=== PATIENT | female | born 1940 | race Caucasian/White ===

== ENCOUNTER 2017-06-04 17:21 | Inpatient (IN) | payer OTHER ==
[~2017-06-04] VITALS: Ht 152.4 cm; Wt 62.7 kg
[~2017-06-04 17:21] MED LIST: AMBIEN 10MG10 MG PO; BENTYL10 MG PO; DEXILANT30 MG PO; DIAZEPAM5 MG PO; LISINOPRIL10 MG PO; SEROQUEL 25MG25 MG PO; VENLAFAXINE HY150 MG PO; ZOFRAN ODT4 MG PO
[2017-06-04 18:16] LABS: ABSOLUTE BASOPHIL COUNT 0 /CUMM (0.0-0.2); ABSOLUTE EOSINOPHIL COUNT 0.1 /CUMM (0.0-0.7); ABSOLUTE GRANULOCYTE CT 7.1 /CUMM (1.4-6.5); ABSOLUTE MONOCYTE COUNT 0.9 /CUMM (0.10-0.60); BASOPHIL % 0.3 % (0.0-2.0); EOSINOPHIL % 0.9 % (0-5); HEMATOCRIT 43.9 % (37-47); MEAN CORPUSCULAR HGB 28.9 PG (27.0-31.0); MEAN CORPUSCULAR HGB CONC 32.8 G/DL (33.0-37.0); MEAN CORPUSCULAR VOLUME 88.1 FL (81.0-99.0); MEAN PLATELET VOLUME 8.4 FL (7.4-10.4); PLATELET COUNT 241 /CUMM (130-400); RBC DISTRIBUTION WIDTH 14.1 % (11.5-14.5); RED BLOOD CELL CT 4.98 /CUMM (4.20-5.40); WHITE BLOOD CELL COUNT 11.3 /CUMM (4.8-10.8)
--- NOTE | 2017-06-04 20:00 | CT SCAN REPORT ---
EXAMINATION: CT ABDOMEN AND PELVIS WITHOUT CONTRAST CLINICAL INFORMATION: Abdominal distention, vomiting. COMPARISON: None TECHNIQUE: Multidetector volumetric imaging was performed from the superior aspect of the liver through the pubic symphysis. Sagittal and coronal reformatted images were obtained on the technologist's workstation. DLP: 304 mGy-cm FINDINGS: LUNG BASES: There is bibasilar atelectasis. There are pacer electrodes in right atrium and right ventricle. LIVER, GALLBLADDER, AND BILIARY TREE: The liver is normal in size, shape, and attenuation. No focal hepatic lesion or biliary ductal dilatation is present. The gallbladder is unremarkable with no evidence of radiopaque gallstones, gallbladder wall thickening, or obvious pericholecystic inflammatory changes. PANCREAS: Unremarkable. SPLEEN: Unremarkable. ADRENAL GLANDS: Unremarkable. KIDNEYS AND URETERS: The kidneys are normal in size, shape, and attenuation. No hydronephrosis, hydroureter, or calculi seen. No perinephric stranding. BLADDER: Unremarkable. GASTROINTESTINAL TRACT: Is diffuse sigmoid colon diverticulosis without diverticulitis. Scattered groundglass seen in the rest of the colon without distention. The small bowel loops are normal caliber. Appendix is not seen with certainty. ABDOMINAL WALL: No significant hernia is appreciated. LYMPH NODES: Normal. VASCULAR: Unremarkable. PELVIC VISCERA: No free fluid of free air seen. No abnormal pelvic lymph nodes seen. The uterus is anteverted with the fundus slightly bulky. OSSEOUS STRUCTURES: Mild degenerative disc changes L5-S1 disc level with vacuum disc phenomena. Otherwise unremarkable lumbosacral spine and pelvis. IMPRESSION: Diffuse sigmoid and scattered rest of the colon diverticulosis but no visible diverticulitis. No obstruction. No bowel distention, free air or free fluid.
--- NOTE | 2017-06-04 20:04 | ED GI/GU/ABDOMINAL COMPLAINT ---
History of Present Illness General Chief Complaint: General Adult Stated Complaint: "STOMACH BUG FOR A WEEK, NOT GETTING BETTER" Source: patient, family, old records Exam Limitations: no limitations Vital Signs & Intake/Output Vital Signs & Intake/Output Vital Signs Date Time Temp Pulse Resp B/P B/P Pulse O2 O2 Flow FiO2 Mean Ox Delivery Rate 06/04 2313 97.5 74 18 117/58 98 06/04 1742 96.0 72 18 102/70 99 Room Air ED Intake and Output 06/05 0000 06/04 1200 Intake Total 0 Output Total Balance 0 Intake, Oral 0 Patient 120 lb Weight Allergies Coded Allergies: No Known Allergies (07/03/15) Reconcile Medications Dexlansoprazole (Dexilant) 30 MG ECC 1 CAP PO DAILY GI (Reported) Diazepam 5 MG TAB 1 TAB PO BID PRN HEADACHE (Reported) Dicyclomine Hydrochloride (Bentyl) 10 MG CAP 1 TAB PO Q8P PRN SPASMS Lisinopril 10 MG TAB 1 TAB PO DAILY HEART (Reported) Ondansetron (Zofran Odt) 4 MG ODT 1 TAB PO Q6P PRN NAUSEA Quetiapine Fumarate (Seroquel) 25 MG TAB 1 TAB PO QPM SLEEP (Reported) VENLAFAXINE HCL (Venlafaxine HCl ER) 150 MG CER 1 CAP PO DAILY MENTAL HEALTH (Reported) Zolpidem Tartrate (Ambien 10MG) 10 MG TAB 1 TAB PO QPM SLEEP (Reported) Triage Note: PT STATES SHE HAS HAD THE STOMACH BUG V/D FOR A WEEK NOW. PT REPORTS BLOATING IN HER ABD. PT STATES UNABLE TO EAT BUT IS SIPPING ON WATER. PT STATES SHE IS GETTING WORSE INSTEAD OF BETTER. PT STATES THIS HAS BEEN GOING ON FOR THE PAST WEEK. Triage Nurses Notes Reviewed? yes LMP (ages 10-50): post menopausal ? n Is pt currently ? No Onset: Last week Duration: day(s):, changing over time, continues in ED Timing: recent history Quality/Severity: aching, fullness, moderate, vomiting Location: generalized abdomen Radiation: no radiation Activities at Onset: rest Prior Abdominal Problems: none Past Sexual History: Unobtainable at this time Modifying Factors: Worsens With: eating. Associated Symptoms: abdominal pain, diarrhea, fever/chills, loss of appetite, nausea/vomiting HPI: Wanted prior to admission patient complains of nausea vomiting frequent loose watery stools abdominal distention with anorexia dysuria and increasing weakness. She denies fever chills chest pain cough shortness of breath headache rash bleeding Past History Travel History Traveled to [place] past 21 day No Medical History Any Pertinent Medical History? see below for history Neurological: NONE EENT: ACALSIA Cardiovascular: CAD, hypertension Respiratory: NONE Gastrointestinal: H PYLORI STENOSIS Hepatic: NONE Renal: NONE Musculoskeletal: NONE Psychiatric: NONE Endocrine: NONE Surgical History Surgical History: CABG, , AICD pacemaker Psychosocial History What is your primary language Ma[place] Tobacco Use: Quit >30 days ago ETOH Use: denies use Illicit Drug Use: denies illicit drug use Family History Hx Contributory? No Review of Systems Review of Systems Constitutional: Reports: see HPI, malaise, weakness. EENTM: Reports: no symptoms. Respiratory: Reports: no symptoms. Cardiovascular: Reports: no symptoms. GI: Reports: see HPI, abdominal pain, bloating, diarrhea, distention, vomiting. Genitourinary: Reports: see HPI, dysuria. Musculoskeletal: Reports: no symptoms. Skin: Reports: no symptoms. Neurological/Psychological: Reports: no symptoms. Hematologic/Endocrine: Reports: no symptoms. Immunologic/Allergic: Reports: no symptoms. All Other Systems: Reviewed and Negative Physical Exam Physical Exam General Appearance: well developed/nourished, alert, awake, anxious, moderate distress Head: atraumatic, normal appearance Eyes: Bilateral: normal appearance, EOMI, normal inspection. Ears, Nose, Throat, Mouth: hearing grossly normal, dry mucous membranes Neck: normal inspection, supple, full range of motion, normal alignment Respiratory: normal breath sounds, chest non-tender, no respiratory distress, quiet respiration, lungs clear Cardiovascular: regular rate/rhythm, normal peripheral pulses, norml femoral pulses equa Peripheral Pulses: 4+ carotid (R), 4+ carotid (L) Gastrointestinal: soft, non-tender, abnormal bowel sounds, distention Back: normal inspection, normal range of motion Extremities: normal range of motion, no ligament instability Neurologic/Psych: no motor/sensory deficits, awake, alert, oriented x 3, normal gait, normal mood/affect, 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 Yes Sepsis Present: No Sepsis Focused Exam Completed? No Progress Differential Diagnosis: biliary colic, bowel obstruction, diverticulitis, gastritis, pancreatitis, PUD/GERD Plan of Care: Orders Procedure Date/time Status Clear Liquid Diet 06/05 B Active CBC WITHOUT DIFFERENTIAL 06/05 06 Active BASIC ELECTROLYTES PLUS BUN&CR 06/05 0600 Active TROPONIN LEVEL 06/05 0500 Active EKG 06/05 0500 Active C.DIFFICILE 06/04 2339 Active SWALLOW EVALUATION 06/04 225 Active Saline Lock 06/04 225 Active Pathway - chart 06/04 225 Active House Staff 06/04 225 Active Code Status 06/04 2252 Active Patient Data 06/04 2129 Active POTASSIUM 06/04 2100 Complete TROPONIN LEVEL 06/04 2042 Complete MAGNESIUM 06/04 2042 Complete LACTIC ACID 06/04 204 Complete EKG 06/04 204 Active Add-on Test (ER Only) 06/04 2020 Active Add-on Test (ER Only) 06/04 2002 Active OXYGEN SETUP (GEN) 06/04 1934 Active Saline Lock 06/04 193 Active Admit to inpatient 06/04 1935 Active Vital Signs 06/04 1935 Active Activity/Ambulation 06/04 193 Active Code Status 06/04 1935 Complete Intake & Output 06/04 1922 Active TSH REFLEX 06/04 1751 Complete RAPID VIRAL INFLUENZA A 06/04 1742 Complete CULTURE,URINE 06/04 1742 Active URINALYSIS 06/04 1742 Complete TROPONIN LEVEL 06/04 1742 Complete LIPASE 06/04 1742 Complete LACTIC ACID 06/04 1742 Complete COMPREHENSIVE METABOLIC PANEL 06/04 1742 Complete CBC WITHOUT DIFFERENTIAL 06/04 1742 Complete AMYLASE 06/04 1742 Complete EKG 06/04 1742 Active Lab Add-on Test 06/04 UNK Active VTE Mechanical Prophylaxis 06/04 UNK Active Vital Signs 06/04 UNK Active Intake & Output 06/04 UNK Active Hemoccult 06/04 UNK Active FingerStick- Glucose 06/04 UNK Complete PHYSICIAN CONSULT 06/04 UNK Active ECHOCARDIOGRAM 06/04 UNK Active Current Medications Sig/Richa Start time Last Medication Dose Stop Time Status Admin Quetiapine Fumarate 25 MG QPM 06/05 2199 UNVr (Seroquel) Zolpidem Tartrate 10 MG QPM 06/05 220 UNVr (Ambien) Ceftriaxone Sodium 1,000 MG 06/05 AC (Rocephin) Venlafaxine HCl 150 MG DAILY 06/05 1000 UNVr (Effexor) Omeprazole 40 MG DAILY AC 06/05 0700 UNVr (Prilosec) Heparin Sodium 5,000 UNIT Q8 06/05 06 UNVr (Porcine) Aspirin 300 MG ONCE ONE 06/05 011 UNVr (Aspirin) 06/05 011 Insulin Human Regular 0 Q6 06/04 2359 CAN (NovoLIN R) Acetaminophen 650 MG Q6 PRN 06/04 2300 AC (Tylenol) Morphine Sulfate 2 MG Q8P PRN 06/04 2300 AC (Morphine) Sodium Chloride 1,000 ML ONCE ONE 06/04 2300 AC 06/04 (Normal Saline 0.9%) 06/05 1859 2354 Laboratory Tests 06/04/17 2100: Lactic Acid 0.9, Magnesium 2.0, Troponin I 0.13 *H 06/04/17 1815: Urine Color YEL, Urine Clarity HAZY H, Urine pH 6.0, Ur Specific [place] 1.020, Urine Protein 30 H, Urine Ketones NEG, Urine Nitrite NEG, Urine Bilirubin NEG@ ICTO, Urine Urobilinogen 0.2, Ur Leukocyte Esterase MOD H, Ur Microscopic SEDIMENT EXAMINED, Urine RBC 1-3, Urine WBC 10-15 H, Ur Epithelial Cells FEW, Urine Bacteria MANY H, Hyaline Casts 5-10 H, Urine Mucus FEW, Urine Hemoglobin SMALL H, Urine Glucose NEG 06/04/17 1751: Anion Gap 14, Estimated GFR 34 L, BUN/Creatinine Ratio 12.7, Glucose 137 H, Lactic Acid 2.1, Calcium 9.7, Total Bilirubin 0.5, AST 39 H, ALT 29, Alkaline Phosphatase 101, Troponin I 0.11 *H, Total Protein 7.6, Albumin 4.4, Globulin 3.2, Albumin/Globulin Ratio 1.4, Amylase 90, Lipase 299, TSH &T3 &Free T4 Intrp 1.010, CBC w Diff NO MAN DIFF REQ, RBC 4.98, MCV 88.1, MCH 28.9, MCHC 32.8 L, RDW 14.1, MPV 8.4, Gran % 63.0, Lymphocytes % 27.7, Monocytes % 8.1, Eosinophils % 0.9, Basophils % 0.3, Absolute Granulocytes 7.1 H, Absolute Monocytes 0.9 H, Absolute Eosinophils 0.1, Absolute Basophils 0 Microbiology 06/04 2339 STOOL: Clostridium difficile Toxin A & B - ORD 06/04 1812 NASOPHARYN: Influenza Virus A & B Rapid Smear - COMP 06/04 1742 URINE ROUT: Urine Culture - RECD Diagnostic Imaging: Viewed by Me: CT Scan. Discussed w/RAD: CT Scan. Radiology Impression: Diffuse sigmoid and scattered rest of the colon diverticulosis but no visible diverticulitis. No obstruction. No bowel distention, free air or free fluid. Initial ED EKG: pacemaker rhythm, no ST T wave changes Prior EKG: changed Rhythm Strip: normal sinus rhythm Comments: Sepsis bolus not given due to possible development of CHF. Patient has cardiomyopathy with poor ejection fraction and positive troponin 2nd lactic acid normal. Departure Departure Disposition: STILL A PATIENT Condition: Fair Clinical Impression Primary Impression: Hypokalemia, gastrointestinal losses Secondary Impressions: Dehydration syndrome, Elevated troponin, Lactic acidosis, Nausea, vomiting, and diarrhea, UTI (urinary tract infection) Referrals: Sal Holden MD (PCP/Family) Departure Forms: Customer Survey General Discharge Information Admission Note Spoke With: Anjel Calix MD Documentation of Exam: Documentation of any treatments & extenuating circumstances including Concerns Regarding Discharge (functional status, medication knowledge or non-compliance, living conditions, etc.) that warrant an admission rather than observation: Gentle IV hydration electrolyte replacement serial lab exam IV antibiotics advance diet medication adjustment cardiac monitoring continuing care discharge planning. Critical Care Note Critical Care Note Critical Care Time: 30-74 min (40)
--- NOTE | 2017-06-04 21:31 | History & Physical ---
Mor GRESHAM,[facility] 06/04/172130: General Information and HPI MD Statement: I have seen and personally examined SILVANA CLINTON and documented this H&P. The patient is a 76 year old F who presented with a patient stated chief complaint of [vomit and diarrhea x 1 week]. Source of Information: patient History of Present Illness: 76 year old with a pmhx: cad, htn, achlasia s/p botox, cabg, , pacemaker with ?defibrillator presenting for vomiting/dirrhea x 1 week. The patient states that her symptoms of vomiting and diarrhea have been progressively worse during the week. States that her decreased appetite has decreased to just water sips. States that she did not eat anything yesterday. States that she has been feeling bloated. States that the diarrhea is watery and she has both 7 problems per day. States the stools are brown with no blood or mucus. Did serve operated is yellow with no blood. Denies any recent travel or changes in her diet recently which may have caused this. The patient complains of night sweats and hot flashes. States that she was having abdominal pain which she has vomited however this is resolved this time. Of note the patient states that she has been taking Monistat for the past month to help with dysuria. States that the dysuria improved with small cell however has been getting worse the past couple days. The patient denies any headaches, fevers, chills, weight changes, sensations of cold/hot, palpitations, chest pain, vaginal discharge, shortness of breath, weakness, back pain, flank pain, edema, or jaundice. Allergies/Medications Allergies: Coded Allergies: No Known Allergies (07/03/15) Home Med list Dexlansoprazole (Dexilant) 30 MG ECC 1 CAP PO DAILY GI (Reported) Diazepam 5 MG TAB 1 TAB PO BID PRN HEADACHE (Reported) Dicyclomine Hydrochloride (Bentyl) 10 MG CAP 1 TAB PO Q8P PRN SPASMS Lisinopril 10 MG TAB 1 TAB PO DAILY HEART (Reported) Ondansetron (Zofran Odt) 4 MG ODT 1 TAB PO Q6P PRN NAUSEA Quetiapine Fumarate (Seroquel) 25 MG TAB 1 TAB PO QPM SLEEP (Reported) VENLAFAXINE HCL (Venlafaxine HCl ER) 150 MG CER 1 CAP PO DAILY MENTAL HEALTH (Reported) Zolpidem Tartrate (Ambien 10MG) 10 MG TAB 1 TAB PO QPM SLEEP (Reported) Past History Travel History Traveled to [place] past 21 day No Medical History Neurological: NONE EENT: ACALSIA Cardiovascular: CAD, hypertension Respiratory: NONE Gastrointestinal: H PYLORI STENOSIS Hepatic: NONE Renal: NONE Musculoskeletal: NONE Psychiatric: NONE Endocrine: NONE Surgical History Surgical History: CABG, , AICD pacemaker Past Family/Social History Psychosocial History ETOH Use: denies use Illicit Drug Use: denies illicit drug use Sexual History Past Sexual History Unobtainable at this time Review of Systems Review of Systems Constitutional: Reports: see HPI (night sweats, hot flashes), chills. GI: Reports: see HPI, abdominal pain, diarrhea, nausea, vomiting. Genitourinary: Reports: dysuria. Exam & Diagnostic Data Last 24 Hrs of Vital Signs/I&O Vital Signs Date Time Temp Pulse Resp B/P B/P Pulse O2 O2 Flow FiO2 Mean Ox Delivery Rate 06/05 0800 Room Air 06/05 0653 97.6 64 18 118/58 98 Room Air 06/05 0252 97.6 80 18 110/52 97 Room Air 06/05 0202 97.8 80 16 115/98 98 Room Air 06/04 2313 97.5 74 18 117/58 98 06/04 1742 96.0 72 18 102/70 99 Room Air Intake & Output 06/05 1600 06/05 0800 06/05 0000 Intake Total 1324 320 0 Output Total Balance 1324 320 0 Intake, IV 400 200 Intake, Oral 924 120 0 Patient 125 lb 120 lb Weight Weight Reported by Patient Measurement Method Physical Exam General Appearance Alert, Oriented X3, Cooperative, No Acute Distress HEENT no JVD Cardiovascular Regular Rate, Normal S1, Normal S2, No Murmurs Lungs Clear to Auscultation, Normal Air Movement Abdomen Normal Bowel Sounds, Soft, No Tenderness Extremities no cva tenderness Vascular 2+ radial and pedal pulses Last 24 Hrs of Labs/Richie: Laboratory Tests 06/05/17 0530: Troponin I 0.08 06/05/17 0530: Anion Gap 10, Estimated GFR 48 L, BUN/Creatinine Ratio 15.5, CBC w Diff NO MAN DIFF REQ, RBC 3.62 L, MCV 88.0, MCH 28.8, MCHC 32.8 L, RDW 14.3, MPV 8.6, Gran % 60.9, Lymphocytes % 29.6, Monocytes % 7.9, Eosinophils % 1.3, Basophils % 0.3, Absolute Granulocytes 4.5, Absolute Lymphocytes 2.2, Absolute Monocytes 0.6, Absolute Eosinophils 0.1, Absolute Basophils 0 06/04/17 2100: Lactic Acid 0.9, Magnesium 2.0, Troponin I 0.13 *H 06/04/17 1815: Urine Color YEL, Urine Clarity HAZY H, Urine pH 6.0, Ur Specific [place] 1.020, Urine Protein 30 H, Urine Ketones NEG, Urine Nitrite NEG, Urine Bilirubin NEG@ ICTO, Urine Urobilinogen 0.2, Ur Leukocyte Esterase MOD H, Ur Microscopic SEDIMENT EXAMINED, Urine RBC 1-3, Urine WBC 10-15 H, Ur Epithelial Cells FEW, Urine Bacteria MANY H, Hyaline Casts 5-10 H, Urine Mucus FEW, Urine Hemoglobin SMALL H, Urine Glucose NEG 06/04/17 1751: Anion Gap 14, Estimated GFR 34 L, BUN/Creatinine Ratio 12.7, Glucose 137 H, Lactic Acid 2.1, Calcium 9.7, Total Bilirubin 0.5, AST 39 H, ALT 29, Alkaline Phosphatase 101, Troponin I 0.11 *H, Total Protein 7.6, Albumin 4.4, Globulin 3.2, Albumin/Globulin Ratio 1.4, Amylase 90, Lipase 299, TSH &T3 &Free T4 Intrp 1.010, CBC w Diff NO MAN DIFF REQ, RBC 4.98, MCV 88.1, MCH 28.9, MCHC 32.8 L, RDW 14.1, MPV 8.4, Gran % 63.0, Lymphocytes % 27.7, Monocytes % 8.1, Eosinophils % 0.9, Basophils % 0.3, Absolute Granulocytes 7.1 H, Absolute Monocytes 0.9 H, Absolute Eosinophils 0.1, Absolute Basophils 0 Microbiology 06/04 2338 STOOL: Clostridium difficile Toxin A & B - COLB 06/04 1811 NASOPHARYN: Influenza Virus A & B Rapid Smear - COMP 06/04 1741 URINE ROUT: Urine Culture - RECD Assessment/Plan Assessment: A: 76 year old with a pmhx: cad, htn, achlasia s/p botox, cabg, , pacemaker with ?defibrillator presenting for vomiting/dirrhea x 1 week and continued UTI for the past month. P: #gastroenteritis Most likely viral -cont fluid support -clear liquid diet, advanced as tolerated -f/u c.diff #low K K 2.8 -replete as needed #ANUPAMA Cr 1.5, 1.0 baseline -cont to monitor -cont NS #UTI -cont ceftriaxone -f/u UA, ucx, blood cx #elevated trops - prob demand ischemia trops .11, .13 -Trend troponins and EKG until peak -f/u cardiology consult #mental health -cont zolpidem, quetiapine,venlafaxine #hx of achalasia -GI consult if needed per primary team -f/u swallow eval -obtain achalasia records #gerd -cont omeprazole #DVT prophylaxis, heparin SC #FULL CODE As Ranked By This Provider Problem List: 1. Gastroenteritis 2. Elevated troponin 3. UTI (urinary tract infection) Core Measures/Misc (12/22) Acute Coronary Syndrome ACS Diagnosis: No Congestive Heart Failure Congestive Heart Failure Diagnosis No Cerebrovascular Accident CVA/TIA Diagnosis: No VTE (View Protocol) VTE Risk Factors Acute Medical Illness No Mechanical VTE Prophylaxis d/t Other No VTE Pharm Prophylaxis d/t NA PharmProphylax ordered Sepsis (View protocol) Sepsis Present: No Anjel Calix 06/05/17 0445: Attending MD Review Statement Attending Statement Attending MD Statement: examined this patient, discuss w/resident/PA/DRY TRANSFER MAN, agreed w/resident/PA/DRY TRANSFER MAN, reviewed EMR data (avail), reviewed images, amended to note Attending Assessment/Plan: CC: Vomiting and diarrhea PMH: CAD S/P CABG 15 year back, S/P stent 2017, HTN, achalasia, S/P defibrillator for LBBB Patient came to ER for 1 week duration of vomiting and diarrhea. Patient had been having watery diarrhea approximately 4-5 times per day, nonbloody, associated with abdominal bloating sensation. She had vomiting every time she ate something approximately 4-5 days back, since then patient had not been eating or drinking much, had one American muffin in 3 days. Patient states that she could not even take her daily medications except she has been taking Plavix and Dexilant. Vomiting are clear to yellow in color, nonbilious nonbloody. Patient denies chest pain, burning sensation in chest, recent antibiotic use, sick contacts, eating outside, hospitalization, travel. She endorses and flashes during the nighttime when her diarrhea and vomiting was severe. Currently vomiting is better but diarrhea persists. Patient also endorses urinary burning since last 3-4 weeks, has been using [id number] Monistat for the same. Denies any vaginal discharge, vaginal itching or burning. Patient denies any fever or chills, loss of consciousness, dizziness, palpitations, chest pain or chest tightness, leg swelling. Vitals: Afebrile, pulse in 70s, RR 18, blood pressure 102/70 on arrival improved to 117/58, saturating 99% on room air. On exam: A O 3, cooperative, no acute distress, neck supple, JVD normal, no lymphadenopathy, mucosa dry, no focal neurological deficit, no dependent edema, no obvious skin rashes or inflammation CVS: S1-S2, RRR. RS: Clear to auscultate bilaterally. Abdomen: Soft, NT, ND, bowel sounds present. CT abdomen pelvis without IV contrast: Diffuse sigmoid and scattered rest of the colon diverticulosis but no visible diverticulitis. No obstruction. No bowel distention, free air or free fluid. Assessment and plan 76-year-old female with multiple comorbidities present in in ER for 1 week duration of vomiting and diarrhea, watery, nonbloody, multiple episodes every day, associated with abdominal bloating. Patient denies any recent travel, antibiotic use or hospitalization. She denies any fever or chills but had some night sweats and hot flashes when her diarrhea vomiting was severe. She could not take any oral intake since last 3-4 days and feels very weak and tired with no dizziness lightheadedness or loss of consciousness. On examination she appears dehydrated otherwise complete examination unremarkable. She is found to have hypokalemia with potassium of 2.6, creatinine of 1.5, ( baseline 1.0 done on April 2017), , mild leukocytosis. All goes in favor of dehydration, volume loss, electrolyte loss secondary to vomiting and diarrhea and poor by mouth intake. Her vomiting and diarrhea appears secondary to viral gastroenteritis. CT abdomen and pelvis is unremarkable. Meanwhile she is also found to have elevated troponin to 0.11 which trended up to 0.13. This could be secondary to demand ischemia given her history of extensive CAD in the setting of dehydration. Patient is currently denying any chest pain or chest tightness. She is also complaining of urinary burning and found to leukocyte esterase on UA. + Viral gastroenteritis : Diarrhea and vomiting + Dehydration + Hypokalemia + UTI: Cystitis + Elevated troponin secondary to demand ischemia + History of CAD S/P CABG 15 year back, S/P stent 2016, HTN, achalasia, S/P defibrillator for LBBB - Admit to telemetry - Continuous telemetry monitoring - Serial troponin and ECGs - Replete potassium - Cardiology consult - Continue gentle hydration with normal saline at 50 mL per hour - IV ceftriaxone - Urine culture - Stool C. difficile - Continue her home medications except lisinopril, resume lisinopril once creatinine improved and blood pressure stable - DVT prophylaxis Aleksandra Dewey 06/05/17 0449: Resident Review Statement Resident Statement: examined this patient, discussed with ad operations intern, agreed with ad operations intern, discussed with family Other Findings: Ms Clinton is a 76 year woman who was known to be in her usual state of health until 1 week ago. She is a past medical history of coronary artery disease status post CABG (15 years ago), PCI (February 2017), hypertension, achalasia, pacemaker defibrillator placed in 04/2017 for the treatment of new onset left bundle branch block. She came in with a chief concern of nausea, vomiting and several episodes of diarrhea that started approximately 1 week ago. Review to decreased by mouth intake. No new medications, new food intake, travel. He did not have any upper respiratory infection. She reported occasional night sweats. She reported abdominal discomfort, with no pain but had some dysuria that started approximately a few weeks ago. No fever, chills. She follows up with her special forces specialist for achalasia, who underwent upper endoscopy recently, and received Botox injections as needed. She follows up with cardiology group at [place], for follow-up of her coronary artery disease. At the time of admission, vitals-temperature 97.5, pulse rate 72, respiration 18 , blood pressure 102/70, 99% on room air. On examination, she was comfortable, alert oriented 3. Mucosal membranes appear dry. No lymphadenopathy, no JVP elevation. Heart and lung examination were within normal limits. Abdominal examination was normal, with no tenderness. No CVA tenderness was noted. Pertinent lab findings-W BC 11.3, hemoglobin 14.4, platelets 241. Potassium 2.6 , BUN 19, serum creatinine 1.5 (his baseline 1.0). Lactic acid 2.1 and trended down. Liver chemistries within normal limits. Troponin 0.11, 0.13, 0.08. Urinalysis revealed urine leukocyte esterase moderate, pyuria. CT scan abdomen revealed diffuse diverticulosis, no obstruction. EKG revealed paced rhythm, with nonspecific ST changes secondary to pacemaker. Influenza swab negative. Glucose elevated. Etiology in her case was likely due to gastroenteritis secondary to viral infection. Other infectious etiologies such as urinary tract infection are to be kept in differentials. She had slight elevation in cardiac enzymes likely secondary to demand, but NSTEMI in differentials. Plan: 1. Nausea, vomiting, diarrhea-likely secondary to viral gastroenteritis. Supportive therapy at this time. Continue intravenous fluids at 50 mL an hour. Clear liquid diet at this time. Advance diet as tolerated. Check C. difficile. No recent antibiotic use. 2. Elevated cardiac enzymes-likely type II ME. Trend troponins. Check echocardiogram. Cardiology consult. Aspirin and statin were given in the ED. 3. Abnormal urinalysis-since she has symptoms, could be treated for urinary tract infection with ceftriaxone pending culture results. 4. History of achalasia-obtain records. GI consult. Swallow evaluation. Continue Protonix. 5. Mental health-continue Ambien, Seroquel and Effexor. 6. Hypokalemia-normal bicarbonate. Likely secondary to diarrhea. Replenish aggressively. Housekeeping- 1. DVT prophylaxis-subcutaneous heparin. 2. Consults-cardiology, gastroenterology. 3. GI prophylaxis-Protonix. 4. Medication reconciliation-complete.
[2017-06-05 02:52] VITALS: BP 110/52
--- NOTE | 2017-06-05 04:47 | Admission Certification ---
Admission Certification Certification Statement - As attending physician, I certify that at the time of - admission, based on clinical presentation, severity of - symptoms, need for further diagnostic testing and - therapeutic interventions, and risk of adverse outcomes - without in-hospital treatment, in my clinical assessment, - this patient requires an acute hospital stay for a minimum - of two nights or longer. I have also considered psychsocial - factors such as support system, advanced age, financial - issues, cognitive issues, and failed out-patient treatments, - past re-admission history, safety of patient, and lack of - compliance as applicable. Specific rationale supporting this admission is: Elevated troponin, dehydration, hypokalemia, Viral gastroenteritis
[2017-06-05 06:05] LABS: ABSOLUTE BASOPHIL COUNT 0 /CUMM (0.0-0.2); ABSOLUTE EOSINOPHIL COUNT 0.1 /CUMM (0.0-0.7); ABSOLUTE MONOCYTE COUNT 0.6 /CUMM (0.10-0.60); PLATELET COUNT 168 /CUMM (130-400); RBC DISTRIBUTION WIDTH 14.3 % (11.5-14.5)
[2017-06-05 06:20] LABS: ABSOLUTE GRANULOCYTE CT 4.5 /CUMM (1.4-6.5); ABSOLUTE LYMPH COUNT 2.2 /CUMM (1.2-3.4); BASOPHIL % 0.3 % (0.0-2.0); EOSINOPHIL % 1.3 % (0-5); GRANULOCYTE % 60.9 % (42.2-75.2); MEAN CORPUSCULAR HGB 28.8 PG (27.0-31.0); MEAN CORPUSCULAR HGB CONC 32.8 G/DL (33.0-37.0); MEAN PLATELET VOLUME 8.6 FL (7.4-10.4); WHITE BLOOD CELL COUNT 7.4 /CUMM (4.8-10.8)
[2017-06-05 06:22] LABS: HEMATOCRIT 31.9 % (37-47); RED BLOOD CELL CT 3.62 /CUMM (4.20-5.40)
[2017-06-05 06:53] VITALS: BP 118/58
--- NOTE | 2017-06-05 07:08 | PN- Housestaff ---
Scott GRESHAM,Elen 06/05/17 0708: Subjective Follow-up For: Viral gastroenteritis : Diarrhea and vomiting Dehydration Hypokalemia UTI: Cystitis Elevated troponin secondary to demand ischemia Tele-Events Since Last Visit: SR, 69, 0.08, Subjective: Patient is seen and examined at bedside, she denies any nausea and vomiting, continues to report to mild dysuria which is improving, denies fever, chills, body aches Review of Systems Constitutional: Reports: see HPI. Objective Last 24 Hrs of Vital Signs/I&O Vital Signs Date Time Temp Pulse Resp B/P B/P Pulse O2 O2 Flow FiO2 Mean Ox Delivery Rate 06/05 08 Room Air 06/05 0653 97.6 64 18 118/58 98 Room Air 06/05 0252 97.6 80 18 110/52 97 Room Air 06/05 0202 97.8 80 16 115/98 98 Room Air 06/04 2313 97.5 74 18 117/58 98 06/04 1742 96.0 72 18 102/70 99 Room Air Intake & Output 06/05 1600 06/05 0800 06/05 0000 Intake Total 320 0 Output Total Balance 320 0 Intake, IV 200 Intake, Oral 120 0 Patient 125 lb 120 lb Weight Weight Reported by Patient Measurement Method Physical Exam General Appearance: Alert, Oriented X3, Cooperative, No Acute Distress HEENT: Atraumatic, PERRLA, EOMI, Mucous Membr. moist/pink Cardiovascular: Normal S1, Normal S2, No Murmurs Lungs: Clear to Auscultation Abdomen: Normal Bowel Sounds, Soft, No Tenderness Neurological: Normal Speech, Strength at 5/5 X4 Ext, Normal Tone, Sensation Intact, Cranial Nerves 3-12 NL Extremities: No Clubbing, No Cyanosis, No Edema Assessment/Plan Assessment: 76 year old with a pmhx: cad, htn, achlasia s/p botox, cabg, , pacemaker with ?defibrillator presenting for vomiting/dirrhea x 1 week and continued UTI for the past month. Most likely her symptoms are due to viral gastroenteritis since her symptoms improved markedly, in addition to dehydration which added to her weakness, patient improved after receiving IV fluids. In addition the patient reports marked improvement of her dysuria after she was a started on IV ceftriaxone. #Viral Gastroenteritis/hypokalemia Continue to monitor on telemetry Close monitoring of vital signs Monitoring of BEP and replete electrolytes Follow-up on stool C. difficile Advance diet to full liquid #Elevated troponin Most likely due to demand ischemia Troponin trended down Cardiology consult appreciated #UTI Continue IV ceftriaxone Follow up on urine culture Chronic medical conditions including CAD, hypertension, akinesia, LBBB Continue home meds including lisinopril once creatinine is normalized Full code DVT prophylaxis with subcutaneous heparin Full liquid diet Problem List: 1. Hypokalemia, gastrointestinal losses 2. UTI (urinary tract infection) 3. Dehydration syndrome 4. Elevated troponin 5. Nausea, vomiting, and diarrhea Pain Ratin Pain Location: N/A Pain Goal: Remain pain free Pain Plan: [facility] Labs & Rationales: CBC BEP Panda Jenkins MD 06/05/17 1604: Attending MD Review Statement Attending Statement Attending MD Statement: examined this patient, discuss w/resident/PA/PLUNKET NURSE, agreed w/resident/PA/PLUNKET NURSE, reviewed EMR data (avail), discussed with nursing, discussed with case mgmt, reviewed images, amended to note Attending Assessment/Plan: The patient was seen and discussed with house staff. Agree with plan of care as outlined. Cardiology input appreciated.
--- NOTE | 2017-06-05 13:35 | Cons- Cardiology ---
General Information and HPI Consulting Request Date of Consult: 06/05/17 Requested By: Panda Jenkins MD Reason for Consult: ELEVATED TROPONIN; RECENT AICD Source of Information: patient Exam Limitations: no limitations Allergies/Medications Allergies: Coded Allergies: No Known Allergies (07/03/15) Home Med List: Dexlansoprazole (Dexilant) 30 MG ECC 1 CAP PO DAILY GI (Reported) Diazepam 5 MG TAB 1 TAB PO BID PRN HEADACHE (Reported) Dicyclomine Hydrochloride (Bentyl) 10 MG CAP 1 TAB PO Q8P PRN SPASMS Lisinopril 10 MG TAB 1 TAB PO DAILY HEART (Reported) Ondansetron (Zofran Odt) 4 MG ODT 1 TAB PO Q6P PRN NAUSEA Quetiapine Fumarate (Seroquel) 25 MG TAB 1 TAB PO QPM SLEEP (Reported) VENLAFAXINE HCL (Venlafaxine HCl ER) 150 MG CER 1 CAP PO DAILY MENTAL HEALTH (Reported) Zolpidem Tartrate (Ambien 10MG) 10 MG TAB 1 TAB PO QPM SLEEP (Reported) Current Medications: Current Medications Sig/Richa Start time Last Medication Dose Route Stop Time Status Admin Acetaminophen 650 MG Q6 PRN 06/04 2300 AC PO Aspirin 300 MG ONCE ONE 06/05 0115 CAN NE 06/05 0116 Aspirin 0 .STK-MED ONE 06/04 2352 DC PO Aspirin 325 MG ONCE ONE 06/04 2315 DC 06/04 PO 06/04 2316 2354 Ceftriaxone Sodium 1,000 MG 2000 06/06 1999 AC IV Ceftriaxone Sodium 0 .STK-MED ONE 06/04 2157 DC .ROUTE Ceftriaxone Sodium 1,000 MG ONCE ONE 06/04 2029 DC 06/04 IV 06/04 2030 223 Heparin Sodium 5,000 UNIT Q8 06/05 06 AC 06/05 (Porcine) SC 0653 Insulin Human Regular 0 Q6 06/04 2359 CAN SC Morphine Sulfate 2 MG Q8P PRN 06/04 2300 AC IV Omeprazole 40 MG DAILY AC 06/05 07 AC 06/05 PO 0645 Ondansetron HCl 0 .STK-MED ONE 06/04 1950 DC .ROUTE Ondansetron HCl 4 MG ONCE ONE 06/04 194 DC 06/04 IV 06/04 1945 195 Potassium Chloride 40 MEQ ONCE ONE 06/05 0645 DC 06/05 PO 06/05 0646 0653 Potassium Chloride 20 MEQ ONCE ONE 06/05 0645 DC 06/05 PO 06/05 0646 0653 Potassium Chloride 20 MEQ ONCE ONE 06/05 0000 DC 06/04 PO 06/05 0001 2354 Potassium Chloride 0 .STK-MED ONE 06/04 2352 DC PO Potassium Chloride 0 .STK-MED ONE 06/04 2249 DC PO Potassium Chloride 40 MEQ ONCE ONE 06/04 2214 DC 06/04 PO 06/04 Potassium Chloride 10 MEQ ONCE ONE 06/04 194 DC 06/04 IV 06/04 Quetiapine Fumarate 25 MG QPM 06/05 2200 AC PO Sodium Chloride 1,000 ML ONCE ONE 06/04 2300 AC 06/04 IV 06/05 185 235 Sodium Chloride 1,000 ML BOLUS ONE 06/04 1944 DC 06/04 IV 06/04 Venlafaxine HCl 150 MG DAILY 06/06 1000 AC PO Venlafaxine HCl 150 MG DAILY 06/05 1000 DC 06/05 PO 0832 Zolpidem Tartrate 10 MG QPM 06/05 2200 AC PO Past History Travel History Traveled to [place] past 21 day No Medical History Blood Transfusion Hx: No Neurological: NONE EENT: ACALSIA Cardiovascular: CAD, hypertension Respiratory: NONE Gastrointestinal: H PYLORI STENOSIS Hepatic: NONE Renal: NONE Musculoskeletal: NONE Psychiatric: NONE Endocrine: NONE Surgical History Surgical History: CABG, , AICD pacemaker STENT X1 Psychosocial History Where Do You Live? Home Smoking Status: Former Smoker ETOH Use: denies use Illicit Drug Use: denies illicit drug use Exam & Diagnostic Data Vital Signs and I&O Vital Signs Date Time Temp Pulse Resp B/P B/P Pulse O2 O2 Flow FiO2 Mean Ox Delivery Rate 06/05 08 Room Air 06/05 0653 97.6 64 18 118/58 98 Room Air 06/05 0252 97.6 80 18 110/52 97 Room Air 06/05 0202 97.8 80 16 115/98 98 Room Air 06/04 2313 97.5 74 18 117/58 98 06/04 1742 96.0 72 18 102/70 99 Room Air Intake & Output 06/05 1600 06/05 0800 06/05 0000 06/04 1600 06/04 0800 06/04 0000 Intake Total 320 0 Output Total Balance 320 0 Intake, IV 200 Intake, Oral 120 0 Patient 125 lb 120 lb Weight Weight Reported by Patient Measurement Method Labs/Richie Results: Laboratory Tests 06/05 06/05 06/04 0530 0530 2100 Chemistry Sodium (137 - 145 mmol/L) 143 Potassium (3.5 - 5.1 mmol/L) 3.3 L 2.8 *L Chloride (98 - 107 mmol/L) 112 H Carbon Dioxide (22 - 30 mmol/L) 21 L Anion Gap (5 - 16) 10 BUN (7 - 17 mg/dL) 17 Creatinine (0.5 - 1.0 mg/dL) 1.1 H Estimated GFR (>60 ml/min) 48 L BUN/Creatinine Ratio (7 - 25 %) 15.5 Lactic Acid (0.7 - 2.1 mmol/L) 0.9 Magnesium (1.6 - 2.3 mg/dL) 2.0 Troponin I (< 0.11 ng/ml) 0.08 0.13 *H Hematology CBC w Diff NO MAN DIFF REQ WBC (4.8 - 10.8 /CUMM) 7.4 RBC (4.20 - 5.40 /CUMM) 3.62 L Hgb (12.0 - 16.0 G/DL) 10.4 L Hct (37 - 47 %) 31.9 L MCV (81.0 - 99.0 FL) 88.0 MCH (27.0 - 31.0 PG) 28.8 MCHC (33.0 - 37.0 G/DL) 32.8 L RDW (11.5 - 14.5 %) 14.3 Plt Count (130 - 400 /CUMM) 168 MPV (7.4 - 10.4 FL) 8.6 Gran % (42.2 - 75.2 %) 60.9 Lymphocytes % (20.5 - 51.1 %) 29.6 Monocytes % (1.7 - 9.3 %) 7.9 Eosinophils % (0 - 5 %) 1.3 Basophils % (0.0 - 2.0 %) 0.3 Absolute Granulocytes (1.4 - 6.5 /CUMM) 4.5 Absolute Lymphocytes (1.2 - 3.4 /CUMM) 2.2 Absolute Monocytes (0.10 - 0.60 /CUMM) 0.6 Absolute Eosinophils (0.0 - 0.7 /CUMM) 0.1 Absolute Basophils (0.0 - 0.2 /CUMM) 0 06/04 1815 Urines Urine Color (YEL,AMB,STR) YEL Urine Clarity (CLEAR) HAZY H Urine pH (5.0 - 8.0) 6.0 Ur Specific [place] (1.001 - 1.035) 1.020 Urine Protein (NEG,<30 MG/DL) 30 H Urine Ketones (NEG) NEG Urine Nitrite (NEG) NEG Urine Bilirubin (NEG) NEG@ICTO Urine Urobilinogen (0.1 - 1.0 EU/dl) 0.2 Ur Leukocyte Esterase (NEG) MOD H Ur Microscopic SEDIMENT EXAMINED Urine RBC (0 - 5 /HPF) 1-3 Urine WBC (0 - 2 /HPF) 10-15 H Ur Epithelial Cells (NONE,FEW) FEW Urine Bacteria (NEG/NONE) MANY H Hyaline Casts (0/LPF) 5-10 H Urine Mucus (FEW,NONE) FEW Urine Hemoglobin (NEG) SMALL H Urine Glucose (N MG/DL) NEG 06/04 1751 Chemistry Sodium (137 - 145 mmol/L) 143 Potassium (3.5 - 5.1 mmol/L) 2.6 *L Chloride (98 - 107 mmol/L) 104 Carbon Dioxide (22 - 30 mmol/L) 25 Anion Gap (5 - 16) 14 BUN (7 - 17 mg/dL) 19 H Creatinine (0.5 - 1.0 mg/dL) 1.5 H Estimated GFR (>60 ml/min) 34 L BUN/Creatinine Ratio (7 - 25 %) 12.7 Glucose (65 - 99 mg/dL) 137 H Lactic Acid (0.7 - 2.1 mmol/L) 2.1 Calcium (8.4 - 10.2 mg/dL) 9.7 Total Bilirubin (0.2 - 1.3 mg/dL) 0.5 AST (14 - 36 U/L) 39 H ALT (9 - 52 U/L) 29 Alkaline Phosphatase (<127 U/L) 101 Troponin I (< 0.11 ng/ml) 0.11 *H Total Protein (6.3 - 8.2 g/dL) 7.6 Albumin (3.5 - 5.0 g/dL) 4.4 Globulin (1.9 - 4.2 gm/dL) 3.2 Albumin/Globulin Ratio (1.1 - 2.2 %) 1.4 Amylase (30 - 110 U/L) 90 Lipase (23 - 300 U/L) 299 TSH &T3 &Free T4 Intrp (0.270 - 4.20 uIU/mL) 1.010 Hematology CBC w Diff NO MAN DIFF REQ WBC (4.8 - 10.8 /CUMM) 11.3 H RBC (4.20 - 5.40 /CUMM) 4.98 Hgb (12.0 - 16.0 G/DL) 14.4 Hct (37 - 47 %) 43.9 MCV (81.0 - 99.0 FL) 88.1 MCH (27.0 - 31.0 PG) 28.9 MCHC (33.0 - 37.0 G/DL) 32.8 L RDW (11.5 - 14.5 %) 14.1 Plt Count (130 - 400 /CUMM) 241 MPV (7.4 - 10.4 FL) 8.4 Gran % (42.2 - 75.2 %) 63.0 Lymphocytes % (20.5 - 51.1 %) 27.7 Monocytes % (1.7 - 9.3 %) 8.1 Eosinophils % (0 - 5 %) 0.9 Basophils % (0.0 - 2.0 %) 0.3 Absolute Granulocytes (1.4 - 6.5 /CUMM) 7.1 H Absolute Monocytes (0.10 - 0.60 /CUMM) 0.9 H Absolute Eosinophils (0.0 - 0.7 /CUMM) 0.1 Absolute Basophils (0.0 - 0.2 /CUMM) 0 Assessment/Plan Consult Acknowledgment - Thank you for your consult request.
--- NOTE | 2017-06-05 15:48 | Patient Discharge Instructions ---
Discharge Instructions General Discharge Information You were seen/treated for: VIRAL GATROENTRIITIS DEHYDRATION HYPOKALEMIA Special Instructions: 1-please follow-up with your PCP in 1 week of discharge 2please follow-up with your model maker in 1 week of discharge Diet Continue normal diet: Yes Activity Full Activity/No Limits: Yes Acute Coronary Syndrome Inclusion Criteria At DC or during hospital stay patient has or had the following: ACS DIAGNOSIS No Discharge Core Measures Meds if any: Prescribed or Continued at Discharge Meds if any: NOT Prescribed or Continued at Discharge Congestive Heart Failure Inclusion Criteria At DC or during hospital stay patient has or had the following: CHF DIAGNOSIS No Discharge Core Measures Meds if any: Prescribed or Continued at Discharge Meds if any: NOT Prescribed or Continued at Discharge Cerebrovascular accident Inclusion Criteria At DC or during hospital stay patient has or had the following: CVA/TIA Diagnosis No Discharge Core Measures Meds if any: Prescribed or Continued at Discharge Meds if any: NOT Prescribed or Continued at Discharge Venous thromboembolism Inclusion Criteria VTE Diagnosis No VTE Type NONE VTE Confirmed by (Test) NONE Discharge Core Measures - Per Current guidelines, there needs to be overlap - treatment for the first 5 days of Warfarin therapy. - If discharged on Warfarin prior to 5 days of - overlap therapy, the patient will need to be - assessed for post discharge needs including - *Post discharge parental anticoagulation - *Warfarin and/or parental anticoagulation education - *Follow up date to check INR post discharge At least 5 days overlap therapy as Inpatient No Meds if any: Prescribed or Continued at Discharge Note: Overlap Therapy is Warfarin and Anticoagulant Meds if any: NOT Prescribed or Continued at Discharge
[2017-06-05 16:43] VITALS: BP 118/76
[2017-06-05 22:01] VITALS: BP 116/70
[2017-06-06 06:40] VITALS: BP 122/160
--- NOTE | 2017-06-06 07:04 | PN- Housestaff ---
Scott GRESHAM,Elen 06/06/17 0703: Subjective Follow-up For: Viral gastroenteritis : Diarrhea and vomiting Dehydration Hypokalemia UTI: Cystitis Elevated troponin secondary to demand ischemia Subjective: Patient is seen and examined at bedside, she denies any nausea and vomiting, continues to report to mild dysuria which is improving, denies fever, chills, body aches Review of Systems Constitutional: Reports: see HPI. Objective Last 24 Hrs of Vital Signs/I&O Vital Signs Date Time Temp Pulse Resp B/P B/P Pulse O2 O2 Flow FiO2 Mean Ox Delivery Rate 06/06 0800 Room Air 06/06 0640 98.8 74 20 122/160 95 Room Air 06/05 2201 98.6 72 18 116/70 95 06/05 1643 97.6 66 16 118/76 96 Intake & Output 06/06 1600 06/06 0800 06/06 0000 Intake Total 240 762 Output Total Balance 240 762 Intake, IV 300 Intake, Oral 240 462 Patient 138 lb Weight Physical Exam General Appearance: Alert, Oriented X3, Cooperative, No Acute Distress HEENT: Atraumatic, PERRLA, EOMI, Mucous Membr. moist/pink Cardiovascular: Normal S1, Normal S2, No Murmurs Lungs: Clear to Auscultation Abdomen: Normal Bowel Sounds, Soft, No Tenderness Neurological: Normal Gait, Normal Speech, Strength at 5/5 X4 Ext, Normal Tone, Sensation Intact Extremities: No Clubbing, No Cyanosis, No Edema Vascular: Normal Pulses Assessment/Plan Assessment: 76 year old with a pmhx: cad, htn, achlasia s/p botox, cabg, , pacemaker with ?defibrillator presenting for vomiting/dirrhea x 1 week and continued UTI for the past month. Most likely her symptoms are due to viral gastroenteritis since her symptoms improved markedly, in addition to dehydration which added to her weakness, patient improved after receiving IV fluids. In addition the patient reports marked improvement of her dysuria after she was a started on IV ceftriaxone. #Viral Gastroenteritis/hypokalemia Improved Continue to monitor on telemetry Close monitoring of vital signs Monitoring of BEP and replete electrolytes Advance diet to heart healthy diet #Elevated troponin Most likely due to demand ischemia Troponin trended down follow up on cardiology recommendation follow up on echo results #UTI Continue IV ceftriaxone Follow up on urine culture Chronic medical conditions including CAD, hypertension, akinesia, LBBB Continue home meds including lisinopril once creatinine is normalized The patient is stable to be discharged home today Full code DVT prophylaxis with subcutaneous heparin Heart healthy diet Problem List: 1. UTI (urinary tract infection) 2. Gastroenteritis Pain Ratin Pain Location: n/a Pain Goal: Remain pain free Pain Plan: pathway Tomorrow's Labs & Rationales: none Panda Jenkins MD 06/06/17 2237: Attending MD Review Statement Attending Statement Attending MD Statement: examined this patient, discuss w/resident/PA/BEAUTY PARLOR CLEANER, agreed w/resident/PA/BEAUTY PARLOR CLEANER, reviewed EMR data (avail), discussed with nursing, discussed with case mgmt, amended to note Attending Assessment/Plan: The patient was seen and discussed with house staff. ECHO does show moderately reduced EF (30-35%). Baseline done at [facility] not available. The patient has had no further GI symptoms at present. She requested early discharge as she has to go to [place] today as she may be moving back there into subsidized housing. Most likely represented viral gastroenteritis that has now resolved.
[2017-06-06 07:58] LABS: ABSOLUTE BASOPHIL COUNT 0 /CUMM (0.0-0.2); ABSOLUTE EOSINOPHIL COUNT 0.1 /CUMM (0.0-0.7); ABSOLUTE GRANULOCYTE CT 3.6 /CUMM (1.4-6.5); ABSOLUTE LYMPH COUNT 1.9 /CUMM (1.2-3.4); ABSOLUTE MONOCYTE COUNT 0.3 /CUMM (0.10-0.60); BASOPHIL % 0.5 % (0.0-2.0); EOSINOPHIL % 1.1 % (0-5); HEMATOCRIT 29.4 % (37-47); MEAN CORPUSCULAR HGB 29.1 PG (27.0-31.0); MEAN CORPUSCULAR HGB CONC 32.8 G/DL (33.0-37.0); MEAN CORPUSCULAR VOLUME 88.7 FL (81.0-99.0); MEAN PLATELET VOLUME 8.7 FL (7.4-10.4); PLATELET COUNT 152 /CUMM (130-400); RBC DISTRIBUTION WIDTH 14.2 % (11.5-14.5); RED BLOOD CELL CT 3.31 /CUMM (4.20-5.40); WHITE BLOOD CELL COUNT 5.9 /CUMM (4.8-10.8)
--- NOTE | 2017-06-06 08:47 | Discharge Summary ---
Visit Information Visit Dates Admission Date: 06/04/17 Discharge Date: 06/06/2017 Hospital Course Course Attending Physician: Panda Jenkins MD Primary Care Physician: Adina GRESHAM,Sal Hensley [facility] Course: Patient came to ER for 1 week duration of vomiting and diarrhea. Patient had been having watery diarrhea approximately 4-5 times per day, nonbloody, associated with abdominal bloating sensation. She had vomiting every time she ate something approximately 4-5 days back, since then patient had not been eating or drinking much, had one Palestinian muffin in 3 days. Patient stated that she could not even take her daily medications except she has been taking Plavix and Dexilant. Vomiting are clear to yellow in color, nonbilious nonbloody. Patient denies chest pain, burning sensation in chest, recent antibiotic use, sick contacts, eating outside, hospitalization, travel. She endorsed and flashes during the nighttime when her diarrhea and vomiting was severe. Patient also endorsed urinary burning since last 3-4 weeks, had been using over- the-counter Monistat for the same. Denied any vaginal discharge, vaginal itching or burning. Patient denies any fever or chills, loss of consciousness, dizziness , palpitations, chest pain or chest tightness, leg swelling. Vitals: Afebrile, pulse in 70s, RR 18, blood pressure 102/70 on arrival improved to 117/58, saturating 99% on room air. On exam: A O 3, cooperative, no acute distress, neck supple, JVD normal, no lymphadenopathy, mucosa dry, no focal neurological deficit, no dependent edema, no obvious skin rashes or inflammation CVS: S1-S2, RRR. RS: Clear to auscultate bilaterally. Abdomen: Soft, NT, ND, bowel sounds present. CT abdomen pelvis without IV contrast: Diffuse sigmoid and scattered rest of the colon diverticulosis but no visible diverticulitis. No obstruction. No bowel distention, free air or free fluid. Echo: --- + Viral gastroenteritis : Diarrhea and vomiting + Dehydration + Hypokalemia + UTI: Cystitis + Elevated troponin secondary to demand ischemia + History of CAD S/P CABG 15 year back, S/P stent 2017, HTN, achalasia, S/P defibrillator for LBBB - Was admitted to telemetry - Serial troponin and ECGs ruled out ACS - Her BP was monitored and potassium was repleted -Was given gentle hydration with normal saline at 50 mL per hour , subsequently her appetite improved and her diet was advanced - She was treated with IV ceftriaxone for 2 days for UTI - Urine culture showed gram-negative rods - DVT prophylaxis heparin SC FULL CODE Allergies: Coded Allergies: No Known Allergies (07/03/15) Disposition Summary Disposition Principal Diagnosis: Viral gastroenteritis Additional Diagnosis: Hypokalemia ANUPAMA Elevated troponinsdemand ischemia Discharge Disposition: home or self care Discharge Instructions General Discharge Information Code Status: Full Code Patient's Diet: Heart healthy Patient's Activity: As tolerated Follow-Up Instructions/Appts: 1-please follow-up with your PCP in 1 week of discharge 2please follow-up with your strainer cleaner in 1 week of discharge Medications at Discharge Discharge Medications: Continue taking these medications: Diazepam (Diazepam) 5 MG TAB 1 Tablet ORAL TWICE DAILY as needed for HEADACHE Qty = 90 Lisinopril (Lisinopril) 10 MG TAB 1 Tablet ORAL DAILY Qty = 90 VENLAFAXINE HCL (Venlafaxine HCl ER) 150 MG CER 1 Capsule ORAL DAILY Qty = 90 Dexlansoprazole (Dexilant) 30 MG ECC 1 Capsule ORAL DAILY Qty = 30 Quetiapine Fumarate (Seroquel) 25 MG TAB 1 Tablet ORAL Every night Qty = 30 Zolpidem Tartrate (Ambien 10MG) 10 MG TAB 1 Tablet ORAL Every night Qty = 60 Ondansetron (Zofran Odt) 4 MG ODT 1 Tablet ORAL EVERY SIX HOURS NEEDED as needed for NAUSEA Qty = 20 Dicyclomine Hydrochloride (Bentyl) 10 MG CAP 1 Tablet ORAL EVERY 8 HOURS NEEDED as needed for SPASMS Qty = 20 Start taking the following new medications: Ciprofloxacin HCl (Cipro) 250 MG TABLET 1 Tablet ORAL TWICE DAILY Qty = 2 No Refills Instructions: please take 2 tabs tomorrow twice daily Comments: NOT GIVEN IN HOSPITAL Copies To: Adina GRESHAM,aSl Hensley Attending MD Review Statement Documenting Attending: Panda Jenkins MD Other Findings: The patient was seen and agree with the plan of care upon discharge.
[2017-06-06] MEDS ORDERED: CIPRO250 M1 PO (09:51)
--- NOTE | 2017-06-06 11:33 | ECHOCARDIOGRAM REPORT ---
SILVANA CLINTON Age: 76 : 1940 Gender: F Exam Date: 06/05/2017 14:51 Exam Location: 1 [address] Ht (in): 60 Wt (lb): 124 BSA: 1.55 BP: 118 / 58 Ordering Physician: Aleksandra Dewey MD Referring Physician: Tatiana Reyes MD Technologist: Sharri Coates [facility] Room Number: 179-02 Indications: ARRHYTHMIAS Rhythm: Sinus Technical Quality: Fair, Technically difficult study FINDINGS Left Ventricle Left ventricular cavity size normal. Moderately reduced global left ventricular systolic function. Moderately abnormal left ventricular ejection fraction estimated at 30-35%. Right Ventricle Right ventricle not well visualized, grossly normal. Right Atrium Normal right atrial size. Left Atrium Moderate left atrial dilatation. Mitral Valve Mitral valve thickened. Moderate mitral annular calcification. Moderate mitral regurgitation. Aortic Valve Trileaflet aortic valve. Diffuse thickening (sclerosis) of the aortic valve cusps without reduced excursion. No aortic stenosis. Trace aortic regurgitation. Tricuspid Valve Tricuspid valve not well visualized, grossly normal. Mild tricuspid regurgitation. Right ventricular systolic pressure estimated at 36 mmHg. Pulmonic Valve Structurally normal pulmonic valve. Mild pulmonic regurgitation. Pericardium No pericardial effusion. No pericardial effusion. Great Vessels Normal size aortic root and proximal ascending aorta. CONCLUSIONS 1. This was a technically difficult examination. 2. Mild to moderate aortic sclerosis is present with minimal aortic insufficiency. 3. Mitral leaflet thickening is present with moderate anular calcification and moderate mitral insufficiency with moderate left atrial enlargement. 4. There is no pericardial fluid detected. 5. The left ventricular chamber size is normal with global hypokinesia which is more pronounced in the mid to distal septum with an ejection fraction of approximately 30-35%. Mild LVH is present with mild diastolic dysfunction. 6. Mild to moderate tricuspid insufficiency is present with mild pulmonic insufficiency and no evidence of pulmonary hypertension. 7. Pacemaker / AICD wires are present in the right heart chambers. Tatiana Reyes M.D. (Electronically Signed) Final Date: 06 June 2017 11:32 MEASUREMENTS (Male / Female) Normal Values 2D ECHO LV Diastolic Diameter PLAX 5.4 cm 4.2 - 5.9 / 3.9 - 5.3 cm LV Systolic Diameter PLAX 4.5 cm 2.1 - 4.0 cm LV Fractional Shortening PLAX 16.7 % 25 - 46 % LV Ejection Fraction 2D Teich 34.6 % IVS Diastolic Thickness 1.3 cm LVPW Diastolic Thickness 1.3 cm LV Relative Wall Thickness 0.5 RV Internal Dim ED PLAX 2.6 cm 1.9 - 3.8 cm LVOT Diameter 2.2 cm Aortic Root Diameter 2.7 cm LV Ejection Fraction MOD BP 45.0 % >= 55 % LV Cardiac Index MOD BP 2200.0 cm/minm LV Diastolic Length 4C 6.5 cm 6.9 - 10.3 cm LV Diastolic Area 4C 26.9 cm LV Diastolic Volume MOD 4C 93.0 cm LV Ejection Fraction MOD 4C 38.7 % LV Stroke Volume MOD 4C 36.0 cm LV Cardiac Index MOD 4C 1600.0 cm/minm LV Systolic Length 4C 6.0 cm LV Systolic Area 4C 20.2 cm LV Systolic Volume MOD 4C 57.0 cm LV Ejection Fraction MOD 2C 45.5 % LV Cardiac Index MOD 2C 2200.0 cm/minm LV Diastolic Volume 4C AL 95.1 cm 85 - 139 / 69 - 109 cm LV Systolic Volume 4C AL 57.6 cm LV Ejection Fraction 4C AL 39.4 % LV Stroke Volume 4C AL 37.5 cm LV Ejection Fraction 2C AL 43.1 % LA Volume 54.0 cm 18 - 58 / 22 - 52 cm Ascending Aorta Diameter 2.7 cm DOPPLER AV Peak Velocity 143.0 cm/s AV Peak Gradient 8.2 mmHg AV Mean Velocity 104.0 cm/s AV Mean Gradient 5.0 mmHg AV Velocity Time Integral 34.1 cm LVOT Peak Velocity 118.0 cm/s LVOT Peak Gradient 5.6 mmHg LVOT Mean Velocity 78.0 cm/s LVOT Mean Gradient 3.0 mmHg LVOT Velocity Time Integral 24.1 cm LVOT Stroke Volume 91.6 cm AV Area Cont Eq vti 2.7 cm AV Area Cont Eq pk 3.1 cm MV Peak Velocity 116.0 cm/s MV Peak Gradient 5.4 mmHg MV Mean Velocity 62.5 cm/s MV Mean Gradient 2.0 mmHg Mitral E Point Velocity 101.0 cm/s Mitral A Point Velocity 117.0 cm/s Mitral E to A Ratio 0.9 MV PHT Velocity 116.0 cm/s MV Deceleration [place] 430.0 cm/s MV Pressure Half Time 80.9 ms MV Area PHT 2.7 cm MV Deceleration Time 288.0 ms MR Peak Velocity 558.0 cm/s MR Peak Gradient 124.5 mmHg MR ERO PISA 0.1 cm MR Regurgitant Volume PISA 24.2 cm TR Peak Velocity 258.0 cm/s TR Peak Gradient 26.6 mmHg Right Atrial Pressure 10.0 mmHg Pulmonary Artery Systolic Pressu 36.6 mmHg Right Ventricular Systolic Press 36.6 mmHg PV Peak Velocity 102.0 cm/s PV Peak Gradient 4.2 mmHg PV Mean Velocity 66.6 cm/s PV Mean Gradient 2.0 mmHg PV Velocity Time Integral 21.0 cm LV E' Lateral Velocity 5.1 cm/s Mitral E to LV E' Lateral Ratio 19.9 LV E' Septal Velocity 5.8 cm/s Mitral E to LV E' Septal Ratio 17.6
== END 2017-06-06 11:15 | DRG 690 ==
LOC: ERH 17:21 → 1NO 19:35 → ERHI 19:35 → ENRESERV 06-05 01:57 → 1NO 06-05 02:44 → ENPENDDIS 06-06 10:27 → 1NO 06-06 11:15
PROVIDERS: Internal Medicine Endocrinology, Diabetes & Metabolism; Physician Assistant Medical; Student in an Organized Health Care Education/Training Program
DX: N30.90 Cystitis, unspecified without hematuria (principal); N17.9 Acute kidney failure, unspecified; E87.2 Acidosis; I24.8 Other forms of acute ischemic heart disease; I42.9 Cardiomyopathy, unspecified; R07.9 Chest pain, unspecified; E86.0 Dehydration; E87.6 Hypokalemia; K52.9 Noninfective gastroenteritis and colitis, unspecified; I25.10 Atherosclerotic heart disease of native coronary artery without angina pectoris; I10 Essential (primary) hypertension; Z95.0 Presence of cardiac pacemaker; Z95.1 Presence of aortocoronary bypass graft
CPT/HCPCS: 1NSP; ERO; 36592; 74176; 81001; 82436; 87086; 87804; 87804-59; 93005; 93010; 93306; 96360; 99291; J0696; J1644; J2405

== ENCOUNTER 2017-11-08 05:05 | Inpatient (IN) | payer OTHER ==
[~2017-11-08] VITALS: Ht 152.4 cm; Wt 70.8 kg
[~2017-11-08 05:05] MED LIST changes: +CIPRO250 M1 PO
--- NOTE | 2017-11-08 05:44 | ED GI/GU/ABDOMINAL COMPLAINT ---
History of Present Illness General Chief Complaint: Abdominal Pain/Flank Pain Stated Complaint: BIBA EPIGASTRIC PAIN, +N/V Source: patient, old records Exam Limitations: no limitations Allergies Coded Allergies: No Known Allergies (07/03/15) Triage Note: PT BIBA FROM HOME C/O EPIGASTRIC PAIN OFF AND ON, WITH +N/V FOR 2 DAYS. STATES PMH OF SAME RELATED TO PYLORIC STENOSIS "IT HASN'T BEEN THIS BAD IN A YEAR" STATES HAS BEEN TAKING HER MEDICATIONS DIRECTED. PT DENIES CHEST PAIN, DENIES S0B, DENIES UTI S/S. LAST BM WAS YESTERDAY AND WAS NORMAL. PT GIVEN 4 MG ZOFRAN IV BY EMS JUST PRIOR TO ARRIVAL Triage Nurses Notes Reviewed? yes ? n Is pt currently ? No HPI: Patient presents for evaluation of "bad stomachache" and vomiting that began yesterday. Patient states this is similar to prior episodes of pyloric stenosis associated pain she has had ReVia sleep. She states this episode is particularly severe however. She denies associated fever, cold symptoms or diarrhea. She states she recently had a cardiac stent placement and has been unable to see her gastrointestinal specialist for a number of months. She states her episodes are typically treated with endoscopy (Priscila GRESHAM,Ashok Goins) Vital Signs & Intake/Output Vital Signs & Intake/Output Vital Signs Date Time Temp Pulse Resp B/P B/P Pulse O2 O2 Flow FiO2 Mean Ox Delivery Rate 11/13 0655 98.0 86 20 142/66 93 Room Air 11/12 2342 98.1 76 20 124/66 97 Room Air 11/12 2052 97.7 78 20 129/50 11/12 1559 98.1 80 20 140/62 94 Room Air 11/12 0902 81 145/59 /08 0800 98.8 70 20 140/70 94 Room Air ED Intake and Output 11/13 0000 11/12 1200 Intake Total 1490 240 Output Total 1370 35 Balance 120 205 Intake, IV 120 Intake, Oral 1370 240 Number 3 0 Bowel Movements Output, 50 35 Drainage Output, Other 20 Output, Urine 1300 Patient 153 lb Weight Weight Bed scale Measurement Method Reconcile Medications Alprazolam 1 MG TABLET 1 TAB PO TID PRN ANXIETY (Reported) Aspirin (Ecotrin*) 81 MG TABLET.DR 1 TAB PO DAILY HEART/BLOOD (Reported) Atorvastatin Calcium 80 MG TABLET 1 TAB PO DAILY CHOLESTEROL (Reported) Carvedilol 6.25 MG TABLET 1 TAB PO BID HEART/BP (Reported) Clopidogrel Bisulfate (Clopidogrel) 75 MG TABLET 1 TAB PO DAILY BLOOD THINNER (Reported) Dexlansoprazole (Dexilant) 30 MG DRDerrickBP 1 CAP PO DAILY GI (Reported) Lisinopril 20 MG TABLET 1 TAB PO DAILY BP (Reported) Quetiapine Fumarate 25 MG TABLET 1 TAB PO DAILY MENTAL HEALTH (Reported) Venlafaxine HCl (Venlafaxine HCl ER) 150 MG CAP.ER.24H 1 CAP PO DAILY MENTAL HEALTH (Reported) Zolpidem Tartrate 10 MG TABLET 1 TAB PO QPM SLEEP (Reported) (Ashok Ohara DO) Past History Travel History Traveled to [place] past 21 day No Medical History Any Pertinent Medical History? see below for history Neurological: NONE EENT: ACALSIA Cardiovascular: CAD, hypertension Respiratory: NONE Gastrointestinal: H PYLORI STENOSIS Hepatic: NONE Renal: NONE Musculoskeletal: NONE Psychiatric: NONE Endocrine: NONE Surgical History Surgical History: CABG, , AICD pacemaker STENT X1 Psychosocial History Who do you live with Patient/Self What is your primary language Omani Tobacco Use: Quit >30 days ago ETOH Use: denies use Illicit Drug Use: denies illicit drug use Family History Hx Contributory? No (Priscila GRESHAM,Ashok Goins) Review of Systems Review of Systems Constitutional: Reports: no symptoms. EENTM: Reports: no symptoms. Respiratory: Reports: no symptoms. Cardiovascular: Reports: no symptoms. GI: Reports: see HPI. Genitourinary: Reports: no symptoms. Musculoskeletal: Reports: no symptoms. Skin: Reports: no symptoms. Neurological/Psychological: Reports: no symptoms. Hematologic/Endocrine: Reports: no symptoms. Immunologic/Allergic: Reports: no symptoms. All Other Systems: Reviewed and Negative (Priscila GRESHAM,Ashok Goins) Physical Exam Physical Exam Gastrointestinal: see below Comments: Gen.: Well-nourished, well-developed, no acute respiratory distress. Appears mildly to moderately uncomfortable secondary to "stomachache" Head: Normocephalic, atraumatic. Eyes: Normal inspection bilaterally Ears: Normal inspection bilaterally Nose: Normal inspection Throat/mouth : Moist mucosa Neck: Supple, full range of motion, no goiter Heart: Regular rate and rhythm, no murmurs rubs or gallops Lungs: Clear to auscultation bilaterally with normal air entry Chest: Nontender Back: Normal range of motion Abdomen: Soft, nontender, nondistended, normal bowel sounds Extremities: Normal range of motion grossly, equal radial pulses, no cyanosis clubbing or edema Neurologic: Cranial nerves grossly intact, speech is clear Skin: warm and dry Psychiatric: Calm, cooperative, no apparent delusions or hallucinations Core Measures ACS in differential dx? No Sepsis Present: No Sepsis Focused Exam Completed? No (Priscila GRESHAM,Ashok Goins) Progress Differential Diagnosis: gastritis, ischemic bowel, inflamm bowel dis, pancreatitis, PUD/GERD Initial ED EKG: NSR, rate (85), nonspecific ST T wave chg (laterally) Comments: Patient states that since this is a fairly typical episode for her and that diagnostic studies in the emergency department would not be helpful. The EKG changes noted compared with prior EKG her likely secondary to the patient's recent cardiac stent. 11/08/2017 6:35:29 AM Silvana's nausea has improved but she was unable to tolerate the Levsin sublingual. I have ordered acetaminophen for pain. Pt signed out to dr ohara. (Priscila GRESHAM,Ashok Goins) Plan of Care: Orders Procedure Date/time Status Change service to 11/13 07 Active ICU LAB BUNDLE 11/13 0500 Active CBC WITHOUT DIFFERENTIAL 11/13 050 Active Lab Add-on Test 11/13 UNK Active Transfer Disposition 11/12 2255 Active PT Evaluate & Treat 11/12 UNK Active OXYGEN 11/11 UNK Complete OXYGEN DAILY CHARGE 11/11 UNK Complete Current Medications Sig/Richa Start time Last Medication Dose Stop Time Status Admin Oxycodone/ 1 TAB Q4P PRN 11/12 1630 AC 11/12 Acetaminophen 2051 (Percocet) Heparin Sodium 5,000 UNIT Q8 11/11 1600 AC 11/13 (Porcine) 0630 Aspirin Buffered 81 MG DAILY 11/11 1430 AC 11/12 (Ecotrin) 0903 Clopidogrel Bisulfate 75 MG DAILY 11/11 1415 AC 11/12 (Plavix) 0902 Atorvastatin Calcium 80 MG 1700 11/09 1700 AC 11/12 (Lipitor) 1631 Ampicillin Sodium/ 3,000 MG Q6 11/09 1200 AC 11/13 Sulbactam Sodium 0617 (Unasyn) Sodium Chloride 100 ML (Normal Saline 0.9%) Carvedilol 6.25 MG BID 11/09 0900 AC 11/12 (Coreg) 2051 Quetiapine Fumarate 25 MG DAILY 11/09 0900 AC 11/12 (Seroquel) 901 Venlafaxine HCl 150 MG DAILY 11/09 0900 AC 11/12 (Effexor Xr) 901 Omeprazole 40 MG DAILY AC 11/09 0700 AC 11/13 (Prilosec) 617 Alprazolam 1 MG TID PRN 11/09 0030 AC 11/10 (Xanax) 11/16 0029 2042 Acetaminophen 650 MG Q6P PRN 11/09 0015 AC (Tylenol) Ondansetron HCl 4 MG Q8P PRN 11/09 0015 AC (Zofran) Laboratory Tests 11/13/17 0632: Sodium Pending, Potassium Pending, Chloride Pending, Carbon Dioxide Pending, Anion Gap Pending, BUN Pending, Creatinine Pending, Glucose Pending, Calcium Pending, Phosphorus Pending, Magnesium Pending, Total Bilirubin Pending, AST Pending, ALT Pending, Albumin Pending, CBC w Diff Pending, WBC Pending, RBC Pending, Hgb Pending, Hct Pending, MCV Pending, MCH Pending, MCHC Pending, RDW Pending, Plt Count Pending, MPV Pending Initial ED EKG: rate, no ST T wave changes, nonspecific ST T wave chg (Ashok Ohara DO) Departure Departure Disposition: STILL A PATIENT Condition: Stable Clinical Impression Primary Impression: Pyloric stenosis in adult Referrals: Adina GRESHAM,Sal Hensley (PCP/Family) Departure Forms: Customer Survey General Discharge Information (Priscila GRESHAM,Ashok Goins) Departure Comments 11/08/17 The patient's pain resolved. She is tolerating by mouth. CT scan results shown below: PATIENT: SILVANA CLINTON PRESENT AGE: 77 PATIENT ACCOUNT NO: [id number] : 41 LOCATION: [facility] ORDERING PHYSICIAN: Ashok Ohara DO SERVICE DATE: 11/08/17 EXAM TYPE: CAT - CT ABD & PELVIS W IV CONTRAST EXAMINATION: CT ABDOMEN AND PELVIS WITH CONTRAST CLINICAL INFORMATION: 77-year-old woman with abdominal pain COMPARISON: CT abdomen and pelvis 06/04/2017 TECHNIQUE: Multidetector volumetric imaging was performed of the abdomen and pelvis following IV administration of 95 mL of Optiray 320 intravenous contrast. Sagittal and coronal reformatted images were obtained on the technologist's workstation. DLP: 286 mGy-cm Her labs did show borderline troponin. EKG shows paced beats. I discussed the case with Dr. Williamson. We will repeat the troponin and EKG, reevaluate the patient. The patient continued to do well, however her troponin trended upward. EKG remain unchanged. She was therefore admitted to the hospital for cardiology consultation, CT scan shows questionable evidence for cholecystitis. Surgical consultation was requested. FINDINGS: LUNG BASES: There is minimal dependent atelectasis and respiratory motion artifact. Trace right pleural effusion. There are postsurgical changes of median sternotomy and several pacemaker/ICD leads. Atherosclerosis of the coronary arteries is noted. Mild mitral annular calcification. The distal esophageal wall is mildly thickened. LIVER, GALLBLADDER, AND BILIARY TREE: The liver is normal in size, shape, and contour. No focal liver lesion is demonstrated. There is mild gallbladder wall thickening. The gallbladder wall demonstrates mild hyperenhancement. No radiopaque gallstones are demonstrated. The common bile duct is mildly dilated measuring 8 to 9 mm in diameter. There is also prominence of the intrahepatic bile ducts. These findings are new since the CT from 06/04/2017. There is mild fat stranding along the right paracolic gutter and trace free fluid in the right lower quadrant. PANCREAS: Unremarkable. SPLEEN: Unremarkable. ADRENAL GLANDS: Unremarkable. KIDNEYS AND URETERS: The kidneys are normal in size, shape, and attenuation. No hydronephrosis, hydroureter, or calculi seen. No perinephric stranding. BLADDER: Unremarkable. GASTROINTESTINAL TRACT: Distal esophageal wall thickening. The stomach and duodenum are unremarkable. The small bowel is nondilated. Moderate sigmoid diverticulosis is again seen without adjacent inflammatory change. The remainder of the colon is unremarkable. The appendix is not visualized and may be surgically absent. ABDOMINAL WALL: No significant hernia is appreciated. LYMPH NODES: No evidence of pathologic lymphadenopathy by size criteria. A portal caval lymph node and right para-aortic lymph node are slightly more prominent when compared to the previous CT. Question small lymph nodes adjacent to the neck of the gallbladder. VASCULAR: There is moderate aortoiliac atherosclerosis, particularly at the aortic bifurcation. Ectasia of the proximal right common iliac artery. This is similar compared to the prior study. PELVIC VISCERA: There is a 2.7 cm round enhancing mass at the uterine fundus most likely representing a fibroid. OSSEOUS STRUCTURES: No acute or suspicious osseous abnormality. Mild degenerative changes of the spine. Degenerative changes of the pubic symphysis. IMPRESSION: Gallbladder wall thickening and mild intra and extrahepatic biliary ductal dilation. There is also mild inflammation along the right flank and fluid tracking down to the right lower quadrant. Overall findings may reflect acute cholecystitis. Choledocholithiasis is not entirely excluded. Further evaluation with ultrasound may be helpful for demonstration of nonradiopaque gallstones. Possible reactive upper abdominal lymph nodes. Moderate sigmoid diverticulosis without evidence of acute diverticulitis. The right colon is also unremarkable. Distal esophageal wall thickening suggestive of esophagitis. Atherosclerosis including coronary artery disease. Prior median sternotomy, and cardiac pacemaker. Uterine fibroid. DICTATED BY: Faith Salguero MD DATE/TIME DICTATED:11/08/171138 FACIALIST:KALANI DATE/TIME TRANSCRIBED:11/08/171138 CONFIDENTIAL, DO NOT COPY WITHOUT APPROPRIATE AUTHORIZATION. <Electronically signed in Other Vendor System> SIGNED BY: Faith Salguero MD 11/08/17 1211 (Ashok Ohara DO
[2017-11-08 10:18] LABS: ABSOLUTE BASOPHIL COUNT 0 /CUMM (0.0-0.2); ABSOLUTE EOSINOPHIL COUNT 0 /CUMM (0.0-0.7); ABSOLUTE GRANULOCYTE CT 10.9 /CUMM (1.4-6.5); ABSOLUTE LYMPH COUNT 1.5 /CUMM (1.2-3.4); ABSOLUTE MONOCYTE COUNT 1.1 /CUMM (0.10-0.60); BASOPHIL % 0.3 % (0.0-2.0); EOSINOPHIL % 0.1 % (0-5); GRANULOCYTE % 80.7 % (42.2-75.2); HEMATOCRIT 32.3 % (37-47); MEAN CORPUSCULAR HGB 30.6 PG (27.0-31.0); MEAN CORPUSCULAR HGB CONC 33.3 G/DL (33.0-37.0); MEAN PLATELET VOLUME 7.6 FL (7.4-10.4); PLATELET COUNT 192 /CUMM (130-400); RBC DISTRIBUTION WIDTH 13.9 % (11.5-14.5); RED BLOOD CELL CT 3.51 /CUMM (4.20-5.40); WHITE BLOOD CELL COUNT 13.5 /CUMM (4.8-10.8)
--- NOTE | 2017-11-08 12:11 | CT SCAN REPORT ---
EXAMINATION: CT ABDOMEN AND PELVIS WITH CONTRAST CLINICAL INFORMATION: 77-year-old woman with abdominal pain COMPARISON: CT abdomen and pelvis 06/04/2017 TECHNIQUE: Multidetector volumetric imaging was performed of the abdomen and pelvis following IV administration of 95 mL of Optiray 320 intravenous contrast. Sagittal and coronal reformatted images were obtained on the technologist's workstation. DLP: 286 mGy-cm FINDINGS: LUNG BASES: There is minimal dependent atelectasis and respiratory motion artifact. Trace right pleural effusion. There are postsurgical changes of median sternotomy and several pacemaker/ICD leads. Atherosclerosis of the coronary arteries is noted. Mild mitral annular calcification. The distal esophageal wall is mildly thickened. LIVER, GALLBLADDER, AND BILIARY TREE: The liver is normal in size, shape, and contour. No focal liver lesion is demonstrated. There is mild gallbladder wall thickening. The gallbladder wall demonstrates mild hyperenhancement. No radiopaque gallstones are demonstrated. The common bile duct is mildly dilated measuring 8 to 9 mm in diameter. There is also prominence of the intrahepatic bile ducts. These findings are new since the CT from 06/04/2017. There is mild fat stranding along the right paracolic gutter and trace free fluid in the right lower quadrant. PANCREAS: Unremarkable. SPLEEN: Unremarkable. ADRENAL GLANDS: Unremarkable. KIDNEYS AND URETERS: The kidneys are normal in size, shape, and attenuation. No hydronephrosis, hydroureter, or calculi seen. No perinephric stranding. BLADDER: Unremarkable. GASTROINTESTINAL TRACT: Distal esophageal wall thickening. The stomach and duodenum are unremarkable. The small bowel is nondilated. Moderate sigmoid diverticulosis is again seen without adjacent inflammatory change. The remainder of the colon is unremarkable. The appendix is not visualized and may be surgically absent. ABDOMINAL WALL: No significant hernia is appreciated. LYMPH NODES: No evidence of pathologic lymphadenopathy by size criteria. A portal caval lymph node and right para-aortic lymph node are slightly more prominent when compared to the previous CT. Question small lymph nodes adjacent to the neck of the gallbladder. VASCULAR: There is moderate aortoiliac atherosclerosis, particularly at the aortic bifurcation. Ectasia of the proximal right common iliac artery. This is similar compared to the prior study. PELVIC VISCERA: There is a 2.7 cm round enhancing mass at the uterine fundus most likely representing a fibroid. OSSEOUS STRUCTURES: No acute or suspicious osseous abnormality. Mild degenerative changes of the spine. Degenerative changes of the pubic symphysis. IMPRESSION: Gallbladder wall thickening and mild intra and extrahepatic biliary ductal dilation. There is also mild inflammation along the right flank and fluid tracking down to the right lower quadrant. Overall findings may reflect acute cholecystitis. Choledocholithiasis is not entirely excluded. Further evaluation with ultrasound may be helpful for demonstration of nonradiopaque gallstones. Possible reactive upper abdominal lymph nodes. Moderate sigmoid diverticulosis without evidence of acute diverticulitis. The right colon is also unremarkable. Distal esophageal wall thickening suggestive of esophagitis. Atherosclerosis including coronary artery disease. Prior median sternotomy, and cardiac pacemaker. Uterine fibroid.
[2017-11-08] MEDS ORDERED: LISINOPRIL20 M1 PO (16:26)
[2017-11-08] MEDS ORDERED: ASPIRIN EC81 M1 PO (16:26)
[2017-11-08] MEDS ORDERED: ZOLPIDEM TARTRA10 M1 PO (16:26)
[2017-11-08] MEDS ORDERED: ATORVASTATIN CA80 M1 PO (16:27)
[2017-11-08] MEDS ORDERED: QUETIAPINE FUMA25 M1 PO (16:27)
[2017-11-08] MEDS ORDERED: DEXILANT30 M1 PO (16:27)
[2017-11-08] MEDS ORDERED: VENLAFAXINE HC150 MG PO (16:28)
[2017-11-08] MEDS ORDERED: ALPRAZOLAM1 M2 PO (16:28)
[2017-11-08] MEDS ORDERED: CARVEDILOL6.25 M1 PO (16:28)
[2017-11-08] MEDS ORDERED: CLOPIDOGREL75 M1 PO (16:28)
--- NOTE | 2017-11-08 23:26 | History & Physical ---
Richie Del Rosario 11/08/17 8625: General Information and HPI MD Statement: I have seen and personally examined SILVANA CLINTON and documented this H&P. The patient is a 77 year old F who presented with a patient stated chief complaint of [abdominal pain and vomiting x 2 days]. Source of Information: patient, old records History of Present Illness: Silvana Clinton is a 77-year-old female with a past history of coronary artery disease status post CABG and stents 1, hypertension, achalasia status post Botox, questionable pyloric stenosis, pacemaker for left bundle branch presents with epigastric pain and nausea and vomiting for 2 days. Patient states that at 10 AM 2 days ago, she ate a bowl of cereal, and knew it was going to be a bad day. She states that she vomited roughly 20 times, different colors and consistencies based on what she ate, and had crampy abdominal pain that radiated into the ribs. States that she was unable to tolerate PO foods but could tolerate PO liquids. States that after 20x of vomiting, she decided to go to the emergency department at 5am. Denies any fevers, chills, night sweats, chest pain , palpitations, urinary symptoms, lower extremity edema. Does admit to diarrhea 3x/day, although states this has been going on for a year and is chronic, stable at baseline. 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 HCM: Follows Dr Russ for gastroenterology, saw him 1-2 months ago; PCP is Adina ROS: Positive For: Abdominal Pain, Nausea, Vomiting, Diarrhea (chronic stable at baseline) Negative For: Fevers, Sick contacts, Chills, Night Sweats, Weight Loss, Chest Pain, Palpitations, Cough, SOB, Bloody Stools, Urinary Symptoms, LE Edema Past History Travel History Traveled to [place] past 21 day No Medical History Neurological: NONE EENT: ACALSIA Cardiovascular: CAD, hypertension Respiratory: NONE Gastrointestinal: H PYLORI STENOSIS Hepatic: NONE Renal: NONE Musculoskeletal: NONE Psychiatric: NONE Endocrine: NONE Surgical History Surgical History: CABG, , AICD pacemaker STENT X1 Past Family/Social History Psychosocial History ETOH Use: denies use Illicit Drug Use: denies illicit drug use Review of Systems Review of Systems Constitutional: Reports: see HPI. Exam & Diagnostic Data Last 24 Hrs of Vital Signs/I&O Vital Signs Date Time Temp Pulse Resp B/P B/P Pulse O2 O2 Flow FiO2 Mean Ox Delivery Rate 11/09 0047 98.4 91 24 120/60 92 Nasal 2.0L Cannula 11/09 0044 Nasal 2.0L Cannula 11/09 0023 91 18 117/53 96 Nasal 2.0L Cannula 11/09 0001 97.8 92 18 105/53 96 Nasal 2.0L Cannula 11/08 2341 104 18 93/54 94 Room Air / 2320 105 18 90/42 93 Room Air 11/08 1942 97.9 78 17 104/49 99 Room Air 11/08 1858 87 18 92/43 96 Room Air / 1500 98.1 88 18 109/62 98 Room Air 11/08 1224 97.5 82 18 110/60 95 Room Air 11/08 0707 97.6 84 18 134/60 97 Room Air 11/08 0527 96 Room Air 11/08 0510 97.4 84 18 129/74 96 Room Air Intake & Output 11/09 0800 08/05 0000 11/08 1600 Intake Total 500 Output Total Balance 500 Intake, IV 500 Patient 120 lb Weight Weight Reported by Patient Measurement Method Physical Exam General Appearance Alert, Oriented X3, Cooperative, No Acute Distress Skin No Rashes Skin Temp/Moisture Exam: Warm/Dry Cardiovascular Regular Rate, Normal S1, Normal S2, pacemaker in place Lungs Clear to Auscultation, Normal Air Movement Abdomen diffuse generalized tenderness, RUQ>all Neurological Normal Speech, Strength at 5/5 X4 Ext Extremities No Edema Sepsis Peripheral Pulse Location: Dorsalis Pedis Sepsis Peripheral Pulse Exam: Normal Sepsis Cap Refill Exam: <2 Sec Last 24 Hrs of Labs/Richie: Laboratory Tests 11/09/17 0120: Lactic Acid Pending 11/09/17 0004: Troponin I 0.10 11/09/17 0000: Troponin I Cancelled 11/08/17 1652: Troponin I 0.12 *H 11/08/17 1355: Troponin I 0.11 *H 11/08/17 0944: Anion Gap 9, Estimated GFR > 60, BUN/Creatinine Ratio 14.3, Glucose 120 H, Serum Osmolality Pending, Calcium 8.1 L, Total Bilirubin 0.8, AST 37 H, ALT 40 , Alkaline Phosphatase 99, Troponin I 0.09, Total Protein 6.1 L, Albumin 3.2 L , Globulin 2.9, Albumin/Globulin Ratio 1.1, Lipase 31, CBC w Diff NO MAN DIFF REQ, RBC 3.51 L, MCV 92.0, MCH 30.6, MCHC 33.3, RDW 13.9, MPV 7.6, Gran % 80.7 H, Lymphocytes % 11.0 L, Monocytes % 7.9, Eosinophils % 0.1, Basophils % 0.3, Absolute Granulocytes 10.9 H, Absolute Lymphocytes 1.5, Absolute Monocytes 1.1 H, Absolute Eosinophils 0, Absolute Basophils 0 Microbiology 11/09 52 BLOOD: Blood Culture - ORD 11/09 52 BLOOD: Blood Culture - ORD Assessment/Plan Assessment: Silvana Clinton is a 77-year-old female with a past history of coronary artery disease status post CABG and stents 2, hypertension, achalasia status post Botox, questionable pyloric stenosis, pacemaker for left bundle branch presents with epigastric pain and nausea and vomiting for 2 days. She had positive troponins, hypotension, and elevated WBC and met sepsis criteria. She is admitted to telemetry for Sepsis (leukocytosis, hypotension, suspected source) 2 /2 Acute Cholecystitis, Type II LA. Problem list/Assessment/Hospital Course: #Sepsis 2/2 likely Acute cholecystitis (Leukocytosis, Hypotension, Source of infecetion) #Intractable N/V 2/2 pyloric stenosis/acute cholecystitis? #Possible Acute cholecystitis w/ leukocytosis pending US eval #Normacytic anemia w/o clear etiology #Hyponatremia, presumably from vomiting/dehydration #Elevated Trop w/o EKG change, likely type II LA, pending cardio eval #PMH of Pyloric stenosis, CAD s/p 1 stent in 2016/CABG 2002/AICD Pacemaker for LBBB, acalsia s/p Botox, HFrEF (06/2017 EF 30-35%), HTN, #Sepsis 2/2 Acute Cholecystitis -GI Consult in the morning -IVF to maintain MAP >65; has HFrEF so cautious use -Start Ceftriaxone for acute cholecystitis -NPO Overnight for potential procedures -RUQ US in AM -Hold lisinopril in light of hypotension #Intractable N/V 2/2 pyloric stenosis vs acute cholecystitis -Antiemetics as necessary -IVF -NPO #Elevated troponins -Trend troponins, EKG -Pending cardio consult in am -Maintain MAP >65 #Hyponatremia -Check serum Osm -Recheck BEP -Potential full workup per AM team DVT PPx IV access NPO Full Code Dispo As Ranked By This Provider Problem List: 1. Abdominal pain 2. Elevated troponin 3. Nausea, vomiting, and diarrhea Core Measures/Misc (12/22) Acute Coronary Syndrome ACS Diagnosis: Yes No Beta-Zainab d/t Hypotension Congestive Heart Failure Congestive Heart Failure Diagnosis Yes Last Known EF % 35 Cerebrovascular Accident CVA/TIA Diagnosis: No VTE (View Protocol) VTE Risk Factors Age>40 No Mechanical VTE Prophylaxis d/t N/A MechProphylax Ordered No VTE Pharm Prophylaxis d/t NA PharmProphylax ordered Sepsis (View protocol) Sepsis Present: Yes If YES complete Sepsis Event Note If YES complete Sepsis Event Note Inpatient Sepsis Exam Sepsis Cardiac Exam: Regular Rate/Rhythm Sepsis Resp Exam: CTA Sepsis Cap Refill Exam: <2 Sec Sepsis Peripheral Pulse Exam: Normal Sepsis Peripheral Pulse Location: Dorsalis Pedis Sepsis Skin Color Exam: Normal for Ethnicity Skin Temp/Moisture Exam: Warm/Dry Maria C Alvarenga 11/08/17 2332: Core Measures/Misc (12/22) Sepsis (View protocol) If YES complete Sepsis Event Note If YES complete Sepsis Event Note Resident Review Statement Resident Statement: examined this patient, discussed with recruiting intern, agreed with recruiting intern, discussed with family, reviewed EMR data (avail), discussed with nursing , discussed with case mgmt, reviewed images, amended to note Other Findings: Ms. Clinton is a 77yo F w/ PMH of Pyloric stenosis, CAD s/p 1 stent in 2017/CABG 2002/AICD Pacemaker for LBBB, acalsia s/p Botox, HFrEF (06/2017 EF 30-35%), HTN, hx of Type II LA in last admission in 06/2017 due to viral gastroenteritis and UTI, presented to ER w/ cc of stomache and N/V x 2 day >20 episodes non-bloody mostly food content vomitus, similar symptoms to last episodes of pyloric stenosis. During our clinical interaction, patient denied recent travel/sick contacts, fever/lightheadedness/diaphoresis/night sweat/weight change/cough/SOB/Chest Pain /Palpitation/urinary abnormality, or other skin/musculoskeletal/neurological/ mood disorders, or dietary/appetite change. -Smoking: denied -Alcohol: denied -Rec Drugs: denied -Outpt physicians: Dr. Russ for GI, pending seeing on 11/10/2017 On admission, Vitals: stable afebrile, HR/RR stable, BP 90s-110s/40s-60s, satting well under RA Physical exam as above. Pertinent findings including Mortensen's sign questionable positive however no significantly increased tenderness of RUQ upon palpation, around 3/10 pain. -CBC: Mild leukocytosis 13.5, H/H 10.8/32.3, PLT 192, -CMP: Hyponatremia 130, Cr 0.7, Mike 8.1 corrected to WNL w/ Albumin 3.2. -Imagings: AB CT Gallbladder wall thickening and mild intra and extrahepatic biliary ductal dilation. There is also mild inflammation along the right flank and fluid tracking down to the right lower quadrant. Overall findings may reflect acute cholecystitis. Choledocholithiasis is not entirely excluded. Further evaluation with ultrasound may be helpful for demonstration of nonradiopaque gallstones. Possible reactive upper abdominal lymph nodes. Moderate sigmoid diverticulosis without evidence of acute diverticulitis. The right colon is also unremarkable. Distal esophageal wall thickening suggestive of esophagitis. Atherosclerosis including coronary artery disease. Prior median sternotomy, and cardiac pacemaker. Uterine fibroid. -EKG: Ventricular paced w/o significant ST-T abnormalities, unchanged from previous. -Last Echo: 06/2017 demontrating LV global hypokinesia mostly in mid-distal septum w/ EF 30-35%. -Interventions in ER: NS bolus x 2L, Reglan/Pepcid/Tylenol/Levsin Problem list/Assessment/Hospital Course: #Sepsis 2/2 likely Acute cholecystitis (Leukocytosis, Hypotension, Source of infecetion) #Intractable N/V 2/2 pyloric stenosis/acute cholecystitis? #Possible Acute cholecystitis w/ leukocytosis pending US eval #Normacytic anemia w/o clear etiology #Hyponatremia, presumably from vomiting/dehydration #Elevated Trop w/o EKG change, likely type II LA, pending cardio eval #PMH of Pyloric stenosis, CAD s/p 1 stent in 2017/CABG 2002/AICD Pacemaker for LBBB, acalsia s/p Botox, HFrEF (06/2017 EF 30-35%), HTN, - Admit to Telemetry - Vitals per protocol, monitor I&O per protocol. - Recheck EKG/Trop at midnight and trend if needed - PT/OT in the AM per primary team - Would give another 500cc Bolus and recheck BP in an hour. Patient had HFrEF and would tend not to fluid overload. - Continue all home meds. - Patient is not on Lasix at home and had no orthopenia and could lie flat to sleep. Would restraint from lasix use. - Would hold lisinopril for now as hypotension. - Would schedule RUQ U/S to r.o acute cholecystitis. - Would start empiric ABx Ceftriaxone for acute cholecystitis - Pending Cardiology consult for elevated trop. Patient was seen by Dr. Reyes in last admission - Pending GI consult if EGD/ERCP is needed. - Will keep NPO overnight if possible procedures - Will check serum OSM. Recheck BEP in the AM, and if Na is not improving, may consider full workup including UA/Urine Lytes for HypoNa workup. - Pain per pathway DVT prophylaxis Heparin SC + ALPS NPO IV Access: Peripheral IV Full [facility] 11[facility]17 0529: General Information and HPI Statement: I have seen and personally examined SILVANA CLINTON and documented this H&P. The patient is a 77 year old F who presented with a patient stated chief complaint of [abdominal pain and vomiting]. Source of Information: patient, old records Allergies/Medications Allergies: Coded Allergies: No Known Allergies (07/03/15) Home Med list Alprazolam 1 MG TABLET 1 TAB PO TID PRN ANXIETY (Reported) Aspirin (Ecotrin*) 81 MG TABLET. 1 TAB PO DAILY HEART/BLOOD (Reported) Atorvastatin Calcium 80 MG TABLET 1 TAB PO DAILY CHOLESTEROL (Reported) Carvedilol 6.25 MG TABLET 1 TAB PO BID HEART/BP (Reported) Clopidogrel Bisulfate (Clopidogrel) 75 MG TABLET 1 TAB PO DAILY BLOOD THINNER (Reported) Dexlansoprazole (Dexilant) 30 MG BP 1 CAP PO DAILY GI (Reported) Lisinopril 20 MG TABLET 1 TAB PO DAILY BP (Reported) Quetiapine Fumarate 25 MG TABLET 1 TAB PO DAILY MENTAL HEALTH (Reported) Venlafaxine HCl (Venlafaxine HCl ER) 150 MG CAP.ER.24H 1 CAP PO DAILY MENTAL HEALTH (Reported) Zolpidem Tartrate 10 MG TABLET 1 TAB PO QPM SLEEP (Reported) Past History Medical History Cardiovascular: CAD, hypertension Gastrointestinal: pyloric stenosis Surgical History Surgical History: CABG Past Family/Social History Psychosocial History Smoking Status: Never Smoked ETOH Use: denies use Illicit Drug Use: denies illicit drug use Employment History Employment Retired Review of Systems Review of Systems Constitutional: Reports: see HPI. Exam & Diagnostic Data Last 24 Hrs of Vital Signs/I&O Vital Signs Date Time Temp Pulse Resp B/P B/P Pulse O2 O2 Flow FiO2 Mean Ox Delivery Rate 11/09 0502 98.5 73 24 80/50 98 Nasal Cannula 08/ 0047 98.4 91 24 120/60 92 Nasal 2.0L Cannula / 0044 Nasal 2.0L Cannula / 0023 91 18 117/53 96 Nasal 2.0L Cannula / 0001 97.8 92 18 105/53 96 Nasal 2.0L Cannula 08/04 2341 104 18 93/54 94 Room Air 08/04 2320 105 18 90/42 93 Room Air 08/04 1942 97.9 78 17 104/49 99 Room Air 08/04 1858 87 18 92/43 96 Room Air 08/04 1500 98.1 88 18 109/62 98 Room Air 08/04 1224 97.5 82 18 110/60 95 Room Air 08/04 0707 97.6 84 18 134/60 97 Room Air Intake & Output / 0800 08/05 0000 08/04 1600 Intake Total 500 Output Total Balance 500 Intake, IV 500 Patient 120 lb Weight Weight Reported by Patient Measurement Method Physical Exam General Appearance Alert, Oriented X3, Cooperative, No Acute Distress Skin Temp/Moisture Exam: Warm/Dry Sepsis Skin Exam (color): Normal for Ethnicity HEENT Atraumatic, PERRLA, EOMI Neck Supple, No JVD Lymphatic Axillary nl, Cervical nl Cardiovascular Regular Rate, Normal S1, Normal S2 Lungs Clear to Auscultation, Normal Air Movement Abdomen diffuse generalized tenderness, RUQ>all Neurological Normal Gait, Normal Speech Extremities No Edema Sepsis Peripheral Pulse Location: Dorsalis Pedis Sepsis Peripheral Pulse Exam: Normal Sepsis Cap Refill Exam: <2 Sec Last 24 Hrs of Labs/Richie: Laboratory Tests 11/09/17 0440: Lactic Acid 0.5 L 11/09/17 0440: Anion Gap 7, Estimated GFR > 60, BUN/Creatinine Ratio 11.1, CBC w Diff NO MAN DIFF REQ, RBC 2.83 L, MCV 92.7, MCH 31.2 H, MCHC 33.7, RDW 14.1, MPV 7.7, Gran % 74.7, Lymphocytes % 15.2 L, Monocytes % 9.5 H, Eosinophils % 0.5, Basophils % 0.1, Absolute Granulocytes 6.0, Absolute Lymphocytes 1.2, Absolute Monocytes 0.8 H, Absolute Eosinophils 0, Absolute Basophils 0 11/09/17 0120: Lactic Acid 2.0 11/09/17 0004: Troponin I 0.10 11/09/17 0000: Troponin I Cancelled 11/08/17 1652: Troponin I 0.12 *H 11/08/17 1355: Troponin I 0.11 *H 11/08/17 0944: Anion Gap 9, Estimated GFR > 60, BUN/Creatinine Ratio 14.3, Glucose 120 H, Serum Osmolality 275 L, Calcium 8.1 L, Total Bilirubin 0.8, AST 37 H, ALT 40, Alkaline Phosphatase 99, Troponin I 0.09, Total Protein 6.1 L, Albumin 3.2 L, Globulin 2.9, Albumin/Globulin Ratio 1.1, Lipase 31, CBC w Diff NO MAN DIFF REQ, RBC 3.51 L, MCV 92.0, MCH 30.6, MCHC 33.3, RDW 13.9, MPV 7.6, Gran % 80.7 H, Lymphocytes % 11.0 L, Monocytes % 7.9, Eosinophils % 0.1, Basophils % 0.3, Absolute Granulocytes 10.9 H, Absolute Lymphocytes 1.5, Absolute Monocytes 1.1 H, Absolute Eosinophils 0, Absolute Basophils 0 Microbiology 11/09 014 BLOOD: Blood Culture - RECD 11/09 134 BLOOD: Blood Culture - RECD Core Measures/Misc (12/22) Sepsis (View protocol) If YES complete Sepsis Event Note If YES complete Sepsis Event Note Inpatient Sepsis Exam Sepsis Cardiac Exam: Regular Rate/Rhythm Sepsis Resp Exam: CTA Sepsis Cap Refill Exam: <2 Sec Sepsis Peripheral Pulse Exam: Normal Sepsis Peripheral Pulse Location: Dorsalis Pedis Sepsis Skin Color Exam: Normal for Ethnicity Skin Temp/Moisture Exam: Warm/Dry Attending MD Review Statement Attending Statement Attending MD Statement: examined this patient, discuss w/resident/PA/STORE ADMINISTRATOR, agreed w/resident/PA/STORE ADMINISTRATOR, reviewed EMR data (avail), amended to note Attending Assessment/Plan: This patient is a 77 year old female with a significant past medical history for Pyloric stenosis, CAD (1 stent in 2016), CABG 2002, AICD Pacemaker for LBBB, Achalasia s/p Botox, HFrEF (06/2017 EF 30-35%), HTN, who presents to the ER with abdominal pain, nausea and vomiting x 2 day. She describes great then 20 episodes non-bloody mostly food content vomitus. Given the lack of resolution the patient came to the ED. While in the ED she was found to be afebrile, hypotensive (80/50 which quickly responded to fluid 120/60), elevated WBC count 13.5 (left shift), lactic acid elevated (2.0), elevated Trop 0.11 and Hyponatremia [address] ABD/PELVIS demonstrated Gallbladder wall thickening and mild intra and extrahepatic biliary ductal dilation. There is also mild inflammation along the right flank and fluid tracking down to the right lower quadrant. Overall findings may reflect acute cholecystitis. Admit to telemetry for possible evolving sepsis (Leukocytosis, Hypotension, elevated lactic acid) secondary to acute cholecystitis, intractable nausea and vomiting and elevated Tropinin (R/O ACS). Empiric Abx, Cardiology consult for elevated trop (seen by Dr. Reyes), GI consult if EGD/ERCP, NPO overnight and surgical consult pending course.
[2017-11-09 00:47] VITALS: BP 120/60
--- NOTE | 2017-11-09 01:43 | Sepsis Event Note ---
Sepsis Event Note Severe Sepsis Severe Sepsis Present: No Severe Sepsis Actions Taken: IV Broad Spectrum Abx, IV Fluids- NS or LR Septic Shock Septic Shock Present: No Event Note Event Note: Pt is hypotensive (SBP >90 however), has leukocytosis (13.5), suspected source ( Acute Cholecystitis). Recieved IVF, responded appropriately. Will trend lactate. On broad spectrum abx. Blood cultures x2 pending. Sepsis Focused Exam Sepsis Cardiac Exam: Regular Rate/Rhythm Sepsis Resp Exam: CTA Sepsis Cap Refill Exam: <2 Sec Sepsis Peripheral Pulse Exam: Normal Sepsis Peripheral Pulse Location: Dorsalis Pedis Sepsis Skin Exam (color): Normal for Ethnicity Skin Temp/Moisture Exam: Warm/Dry
[2017-11-09 05:02] VITALS: BP 80/50
[2017-11-09 05:14] LABS: ABSOLUTE BASOPHIL COUNT 0 /CUMM (0.0-0.2); ABSOLUTE EOSINOPHIL COUNT 0 /CUMM (0.0-0.7); ABSOLUTE LYMPH COUNT 1.2 /CUMM (1.2-3.4); ABSOLUTE MONOCYTE COUNT 0.8 /CUMM (0.10-0.60); BASOPHIL % 0.1 % (0.0-2.0); EOSINOPHIL % 0.5 % (0-5); GRANULOCYTE % 74.7 % (42.2-75.2); MEAN CORPUSCULAR HGB 31.2 PG (27.0-31.0); MEAN CORPUSCULAR HGB CONC 33.7 G/DL (33.0-37.0); MEAN CORPUSCULAR VOLUME 92.7 FL (81.0-99.0); MEAN PLATELET VOLUME 7.7 FL (7.4-10.4); PLATELET COUNT 160 /CUMM (130-400); RBC DISTRIBUTION WIDTH 14.1 % (11.5-14.5); RED BLOOD CELL CT 2.83 /CUMM (4.20-5.40); WHITE BLOOD CELL COUNT 8.1 /CUMM (4.8-10.8)
[2017-11-09 05:31] LABS: HEMATOCRIT 26.3 % (37-47)
--- NOTE | 2017-11-09 06:48 | Event Note ---
Event Note Event Note: S -Patient became hypotensive to 80/50 despite receiving a total of 2.5 L of fluid since admission. Heart rate was 73. Patient remained afebrile with no significant change in symptoms. B -Patient is a 77 year old female with pmh of pyloric stenosis, CAD (2016 ), CABG 2002, AICD pacemaker for LBBB, achalasia s/p botox, HFrEF (06/2017 EF: 30 -35%), who presented to ED for abdominal pain, nausea and vomiting for 2 days. Patient had 20 episodes of non-bilious, non-bloody vomitus. In the ED patient was afebrile, hypotensive which responded to fluids, leukocytosis (13.5 with a left shift, elevated lactic acid of 2.0, elevated troponin 0.11 and hyponatremia of 130. CT Abd/Pelvis demonstrated: gallbladder wall thickening and mild intra/ extrahepatic biliary ductal dilation, findings reflective of acute cholecytistis. Patient admitted to telemetry for evolving sepsis secondary to acute cholecystitis, intractable nausea/vomitng and elevated troponins to rule out ACS. Patient was to be started on empiric antibitoics and kept NPO for GI consult for possible EGD/ERCP. A/P: Patient found to be hypotensive multiple times during admission. Additional 1L bolus along with hydration at 50cc/hr started to maintain proper pressure keeping in mind patients low ejection fration 30-35% on previous echo. Metronodizaole started alongside ceftriaxone given patients cholecystitis. Patient originally admitted to telemetry for elevated troponins and sepsis ( hypotension, tachycardia, lactic acid) secondary to acute cholecystitis. Transfer to ICU warrented given hypotensive nature. Surgical PA notified. Dr. Gross, boarding house cook at the time notified. * Transfer to ICU * Gentle hydration 50cc/hr * Continue Flagyl + Ceftriaxone * Follow up repeat lactic acid * Follow up repeat troponin * vital signs q shift; monitor for fever * NPO for possible procedures in AM * Follow up GI recommendations * Follow up RUQ US Code Status: FC DVT PPX: Heparin SC Diet: NPO
--- NOTE | 2017-11-09 06:56 | Cons- General Surgery ---
Mariel Motta 11/09/17 0651: General Information and HPI Consulting Request Date of Consult: 11/09/17 Requested By: Rogelio Gross MD Reason for Consult: possible cholecystitis History of Present Illness: 77F presents with abdominal pain, with multiple medical problems. Brought into hospital on medical service for further eval of abdominal pain and elevated troponins. Was transferred to icu this am for hypotension in setting of chf with ef %20 that has improved w iv fluids. At this time, pt denies abd pain at rest though indicates epigastric pain when "touched". Denies n/v now, had some broth earlier? Troponins have normalized, though pt has extensive cardiac history, with hx cabg and recent stents on asa/plavix (last taken this am). Did undergo both CT and US of abd, which shows cholecystitis and dilated duct, without visible ductal stone. At this time, pt is comfortable in bed and offers no complaints. Allergies/Medications Allergies: Coded Allergies: No Known Allergies (07/03/15) Home Med List: Alprazolam 1 MG TABLET 1 TAB PO TID PRN ANXIETY (Reported) Aspirin (Ecotrin*) 81 MG TABLET.DR 1 TAB PO DAILY HEART/BLOOD (Reported) Atorvastatin Calcium 80 MG TABLET 1 TAB PO DAILY CHOLESTEROL (Reported) Carvedilol 6.25 MG TABLET 1 TAB PO BID HEART/BP (Reported) Clopidogrel Bisulfate (Clopidogrel) 75 MG TABLET 1 TAB PO DAILY BLOOD THINNER (Reported) Dexlansoprazole (Dexilant) 30 MG CAP.DR.BP 1 CAP PO DAILY GI (Reported) Lisinopril 20 MG TABLET 1 TAB PO DAILY BP (Reported) Quetiapine Fumarate 25 MG TABLET 1 TAB PO DAILY MENTAL HEALTH (Reported) Venlafaxine HCl (Venlafaxine HCl ER) 150 MG CAP.ER.24H 1 CAP PO DAILY MENTAL HEALTH (Reported) Zolpidem Tartrate 10 MG TABLET 1 TAB PO QPM SLEEP (Reported) Past History Medical History Blood Transfusion Hx: No EENT: ACHALSIA Cardiovascular: CAD (s/p cabg, stents), CHF, hypertension, ppm Gastrointestinal: pyloric stenosis Surgical History Pertinent Surgical History: none (ppm), CABG Psychosocial History Where Do You Live? Home Services at Home: None Smoking Status: Never Smoked ETOH Use: denies use Illicit Drug Use: denies illicit drug use Employment History Employment: Retired Exam & Diagnostic Data Vital Signs and I&O Vital Signs Date Time Temp Pulse Resp B/P B/P Pulse O2 O2 Flow FiO2 Mean Ox Delivery Rate 11/09 0618 98 Nasal 2.0L Cannula 11/09 0502 98.5 73 24 80/50 98 Nasal Cannula 11/09 0047 98.4 91 24 120/60 92 Nasal 2.0L Cannula 11/09 0044 Nasal 2.0L Cannula 11/09 0023 91 18 117/53 96 Nasal 2.0L Cannula 11/09 0001 97.8 92 18 105/53 96 Nasal 2.0L Cannula 11/08 2341 104 18 93/54 94 Room Air 11/08 2320 105 18 90/42 93 Room Air 11/08 1942 97.9 78 17 104/49 99 Room Air 11/08 1858 87 18 92/43 96 Room Air 11/08 1500 98.1 88 18 109/62 98 Room Air 11/08 1224 97.5 82 18 110/60 95 Room Air 11/08 0707 97.6 84 18 134/60 97 Room Air Intake & Output 11/09 0811/09 0000 11/08 1600 11/08 0800 11/08 0000 11/07 1600 Intake Total 427 179 9939 Output Total 300 Balance 158 613 9296 Intake, IV 499 980 7664 Intake, Oral 0 0 Output, Urine 300 Patient 143 lb 130 lb Weight Weight Bed scale Reported by Patient Measurement Method Physical Exam: SBP: 90s-120s gen- nad card-rrr pulm- no audible wheeze abd- soft, nd, mildly ttp rug/epigastric, no r/g ext- calves soft nt, alps on bl Last 24 Hours of Labs: Laboratory Tests 11/09 11/09 11/09 0600 0440 0440 Chemistry Sodium (137 - 145 mmol/L) 136 L Potassium (3.5 - 5.1 mmol/L) 3.9 Chloride (98 - 107 mmol/L) 108 H Carbon Dioxide (22 - 30 mmol/L) 21 L Anion Gap (5 - 16) 7 BUN (7 - 17 mg/dL) 10 Creatinine (0.5 - 1.0 mg/dL) 0.9 Estimated GFR (>60 ml/min) > 60 BUN/Creatinine Ratio (7 - 25 %) 11.1 Lactic Acid (0.7 - 2.1 mmol/L) Cancelled 0.5 L Total Bilirubin (0.2 - 1.3 mg/dL) 1.3 Direct Bilirubin (< 0.4 mg/dL) 0.9 H AST (14 - 36 U/L) 125 H ALT (9 - 52 U/L) 132 H Alkaline Phosphatase (<127 U/L) 177 H Troponin I (< 0.11 ng/ml) Cancelled 0.09 Total Protein (6.3 - 8.2 g/dL) 4.9 L Albumin (3.5 - 5.0 g/dL) 2.5 L Hematology CBC w Diff NO MAN DIFF REQ WBC (4.8 - 10.8 /CUMM) 8.1 RBC (4.20 - 5.40 /CUMM) 2.83 L Hgb (12.0 - 16.0 G/DL) 8.8 L Hct (37 - 47 %) 26.3 L MCV (81.0 - 99.0 FL) 92.7 MCH (27.0 - 31.0 PG) 31.2 H MCHC (33.0 - 37.0 G/DL) 33.7 RDW (11.5 - 14.5 %) 14.1 Plt Count (130 - 400 /CUMM) 160 MPV (7.4 - 10.4 FL) 7.7 Gran % (42.2 - 75.2 %) 74.7 Lymphocytes % (20.5 - 51.1 %) 15.2 L Monocytes % (1.7 - 9.3 %) 9.5 H Eosinophils % (0 - 5 %) 0.5 Basophils % (0.0 - 2.0 %) 0.1 Absolute Granulocytes (1.4 - 6.5 /CUMM) 6.0 Absolute Lymphocytes (1.2 - 3.4 /CUMM) 1.2 Absolute Monocytes (0.10 - 0.60 /CUMM) 0.8 H Absolute Eosinophils (0.0 - 0.7 /CUMM) 0 Absolute Basophils (0.0 - 0.2 /CUMM) 0 11/09 11/09 11/09 11/08 11/08 0120 0004 0000 1652 1355 Chemistry Lactic Acid (0.7 - 2.1 mmol/L) 2.0 Troponin I (< 0.11 ng/ml) 0.10 Cancelled 0.12 *H 0.11 *H 11/08 0944 Chemistry Sodium (137 - 145 mmol/L) 130 L Potassium (3.5 - 5.1 mmol/L) 4.2 Chloride (98 - 107 mmol/L) 100 Carbon Dioxide (22 - 30 mmol/L) 20 L Anion Gap (5 - 16) 9 BUN (7 - 17 mg/dL) 10 Creatinine (0.5 - 1.0 mg/dL) 0.7 Estimated GFR (>60 ml/min) > 60 BUN/Creatinine Ratio (7 - 25 %) 14.3 Glucose (65 - 99 mg/dL) 120 H Serum Osmolality (285 - 295 MOSM/KG) 275 L Calcium (8.4 - 10.2 mg/dL) 8.1 L Total Bilirubin (0.2 - 1.3 mg/dL) 0.8 AST (14 - 36 U/L) 37 H ALT (9 - 52 U/L) 40 Alkaline Phosphatase (<127 U/L) 99 Troponin I (< 0.11 ng/ml) 0.09 Total Protein (6.3 - 8.2 g/dL) 6.1 L Albumin (3.5 - 5.0 g/dL) 3.2 L Globulin (1.9 - 4.2 gm/dL) 2.9 Albumin/Globulin Ratio (1.1 - 2.2 %) 1.1 Lipase (23 - 300 U/L) 31 Hematology CBC w Diff NO MAN DIFF REQ WBC (4.8 - 10.8 /CUMM) 13.5 H RBC (4.20 - 5.40 /CUMM) 3.51 L Hgb (12.0 - 16.0 G/DL) 10.8 L Hct (37 - 47 %) 32.3 L MCV (81.0 - 99.0 FL) 92.0 MCH (27.0 - 31.0 PG) 30.6 MCHC (33.0 - 37.0 G/DL) 33.3 RDW (11.5 - 14.5 %) 13.9 Plt Count (130 - 400 /CUMM) 192 MPV (7.4 - 10.4 FL) 7.6 Gran % (42.2 - 75.2 %) 80.7 H Lymphocytes % (20.5 - 51.1 %) 11.0 L Monocytes % (1.7 - 9.3 %) 7.9 Eosinophils % (0 - 5 %) 0.1 Basophils % (0.0 - 2.0 %) 0.3 Absolute Granulocytes (1.4 - 6.5 /CUMM) 10.9 H Absolute Lymphocytes (1.2 - 3.4 /CUMM) 1.5 Absolute Monocytes (0.10 - 0.60 /CUMM) 1.1 H Absolute Eosinophils (0.0 - 0.7 /CUMM) 0 Absolute Basophils (0.0 - 0.2 /CUMM) 0 Assessment/Plan Assessment/Plan A- 77yoF with abdominal pain, with improving hypotension and decreasing trops, now with transaminitis and findings of cholecystitis on imaging, who is a poor surgical candidate due to extensive cardiac history with recent cardiac stents on asa/plaxix (last dose this am) and CHf with ef %20. P- Dr. Lawson aware. Agree with GI consult. recommend IR involvement for perc joseph tube placement. Consult Acknowledgment - Thank you for your consult request. Nathaniel Lawson DO 11/09/17 1408: Assessment/Plan Consult Acknowledgment - Thank you for your consult request. Attending MD Review Statement Attending Statement Attending MD Statement: examined this patient, discuss w/resident/PA/DRUGLESS PHYSICIAN, agreed w/resident/PA/DRUGLESS PHYSICIAN, reviewed EMR data (avail), reviewed images Attending Assessment/Plan: Patient seen and examined, agree with above. Abdominal pain with emesis for a couple of days. H/O Pyloric stenosis and achalasia. In ED pain improved, but had elevated troponins and admitted. Overnight had hypotension and transferred to ICU. Currently sleeping in bed w/o abdominal pain. Afebrile HR ok BP has been low but responded to fluids. Abd-soft, NT. Labs reviewed. CT/[facility] c/w cholecystitis, dilated CBD. Patient on plavix (had recent stents). Cholecystitis , ?choledocholithiasis (dilated CBD and some elevated LFTs). Given medical history and currently on plavix, she is not a good surgical candidate. Would consult IR for cholecystostomy tube and Gi F/U for possible MRCP/ERCP is needed, IV Abx.
--- NOTE | 2017-11-09 07:56 | Cons- Gastroenterology ---
General Information and HPI Consulting Request Date of Consult: 11/09/17 Requested By: Rogelio Gross MD Reason for Consult: Intractable nausea and vomiting in a pt with achalasia and a history of pyloric stenosis. Abnomral ct scan showing cholecystitis and biliary dilation. Source of Information: patient, old records Exam Limitations: no limitations History of Present Illness: Ms. Tobar is a 77-year-old female with multiple medical problems including CAD, s/p defibrillator, CHF w/EF of 20%, achalasia status post Botox injection in June of this year and possible pyloric stenosis who presented to the emergency room last night with reports of worsening abdominal pain and bilious nausea and vomiting. The patient notes that she has been having abdominal issues for the past [address] Russ in [facility] has not approximately 15 upper endoscopies over that time and has told her she has pyloric stenosis, however it is unclear if anything has ever been done for that or if that is truly the cause of her symptoms as she also carries a diagnosis of achalasia. In addition to complaining of intermittent dysphagia and vomiting over these past 12 year she also notes that she has had right upper quadrant pain intermittently as well. Approximately 2 days ago she states she ate some cereal for breakfast at which point she developed some abdominal pain associated with bilious vomiting. The vomiting and pain persisted and seemed different than her typical symptoms so she presented to the ER yesterday. She has been afebrile at home and she also denies any elda colored stool or dark urine. She has not had any hematemesis. In the ER she was afebrile and hemodynamically stable albeit with a systolic blood pressure ranging from 80-110. She was not tachycardic. She was noted to have a mild transaminitis with a normal bilirubin and a ct scan showed changes of cholecystitis and mildly dilated biliary ducts. She was admitted to the ICU overnight where she has continued to have a labile blood pressure, but she has not been tachycardic, has not spiked any temperatures, and she has not had any significant drops in her blood pressure. She was given solid food to eat last night and this resulted in some abdominal discomfort and some vomiting. This morning she continues to complain of some right upper quadrant pain, but is requesting to try some lisandra ashley. She has been started on IV antibiotics and is also getting IV Pepcid and Reglan for vomiting as needed. Allergies/Medications Allergies: Coded Allergies: No Known Allergies (07/03/15) Home Med List: Alprazolam 1 MG TABLET 1 TAB PO TID PRN ANXIETY (Reported) Aspirin (Ecotrin*) 81 MG TABLET.DR 1 TAB PO DAILY HEART/BLOOD (Reported) Atorvastatin Calcium 80 MG TABLET 1 TAB PO DAILY CHOLESTEROL (Reported) Carvedilol 6.25 MG TABLET 1 TAB PO BID HEART/BP (Reported) Clopidogrel Bisulfate (Clopidogrel) 75 MG TABLET 1 TAB PO DAILY BLOOD THINNER (Reported) Dexlansoprazole (Dexilant) 30 MG CAP.DR.BP 1 CAP PO DAILY GI (Reported) Lisinopril 20 MG TABLET 1 TAB PO DAILY BP (Reported) Quetiapine Fumarate 25 MG TABLET 1 TAB PO DAILY MENTAL HEALTH (Reported) Venlafaxine HCl (Venlafaxine HCl ER) 150 MG CAP.ER.24H 1 CAP PO DAILY MENTAL HEALTH (Reported) Zolpidem Tartrate 10 MG TABLET 1 TAB PO QPM SLEEP (Reported) Current Medications: Current Medications Sig/Richa Start time Last Medication Dose Route Stop Time Status Admin Acetaminophen 650 MG Q6P PRN 11/09 0015 AC PO Acetaminophen 1,000 MG Q6 PRN 11/09 0015 AC 11/09 IV 0848 Acetaminophen 0 .STK-MED ONE 11/08 1637 DC PO Acetaminophen 650 MG ONCE ONE 11/08 1600 DC 11/08 PO 11/08 1601 1639 Alprazolam 1 MG TID PRN 11/09 0030 AC PO 11/16 0029 Aspirin Buffered 81 MG DAILY 11/09 0900 AC PO Atorvastatin Calcium 80 MG 1700 11/09 1700 AC PO Carvedilol 6.25 MG BID 11/09 09 AC PO Ceftriaxone Sodium 1,000 MG DAILY 11/09 0300 AC 11/09 IV 0459 Clopidogrel Bisulfate 75 MG DAILY 11/09 09 AC PO Famotidine 20 MG ONCE ONE 11/08 2144 DC 11/08 IV 11/08 Famotidine 0 .STK-MED ONE 11/09 2143 DC IV Heparin Sodium 5,000 UNIT Q8 11/09 1400 AC (Porcine) SC Metoclopramide HCl 10 MG ONCE ONE 11/08 2144 DC 11/08 IV 11/08 Metoclopramide HCl 0 .STK-MED ONE 11/09 2143 DC .ROUTE Metronidazole 500 MG IQ8 11/09 0500 AC 11/09 N/A 1 UNIT IV 0530 Omeprazole 40 MG DAILY AC 11/09 07 AC PO Ondansetron HCl 4 MG Q8P PRN 11/09 0015 AC IV Quetiapine Fumarate 25 MG DAILY 11/09 0900 AC PO Sodium Chloride 1,000 ML Q20H 11/09 0430 AC 11/09 IV 11/10 0129 0546 Sodium Chloride 500 ML BOLUS ONE 11/09 0430 DC 11/09 IV 11/09 0629 0546 Sodium Chloride 500 ML BOLUS ONE 11/09 0515 CAN IV 11/09 0614 Sodium Chloride 500 ML BOLUS ONE 11/09 0515 DC 11/09 IV 11/09 0614 0512 Sodium Chloride 500 ML BOLUS ONE 11/09 0100 DC IV 11/09 0159 Sodium Chloride 500 ML BOLUS ONE 11/09 0015 DC 11/09 IV 11/09 0114 0011 Sodium Chloride 500 ML BOLUS ONE 11/08 1930 DC 11/08 IV 11/08 2028 1943 Sodium Chloride 1,000 ML BOLUS ONE 11/08 0915 DC 11/08 IV 11/08 1014 0954 Venlafaxine HCl 150 MG DAILY 11/09 09 DC PO Venlafaxine HCl 150 MG DAILY 11/09 0900 AC PO Past History Travel History Traveled to [place] past 21 day No Medical History Blood Transfusion Hx: No EENT: ACHALSIA Cardiovascular: CAD (s/p cabg, stents), CHF, hypertension, ppm Gastrointestinal: pyloric stenosis Surgical History Surgical History: none (ppm), CABG Psychosocial History Where Do You Live? Home Services at Home: None Smoking Status: Never Smoked ETOH Use: denies use Illicit Drug Use: denies illicit drug use Employment History Employment: Retired Exam & Diagnostic Data Vital Signs and I&O Vital Signs Date Time Temp Pulse Resp B/P B/P Pulse O2 O2 Flow FiO2 Mean Ox Delivery Rate 11/09 617 98 Nasal 2.0L Cannula 11/09 050 98.5 73 24 80/50 98 Nasal Cannula 11/09 0047 98.4 91 24 120/60 92 Nasal 2.0L Cannula 11/09 0044 Nasal 2.0L Cannula 11/09 0023 91 18 117/53 96 Nasal 2.0L Cannula 11/09 0001 97.8 92 18 105/53 96 Nasal 2.0L Cannula 11/08 2341 104 18 93/54 94 Room Air 11/08 2320 105 18 90/42 93 Room Air 11/08 1942 97.9 78 17 104/49 99 Room Air 11/08 1858 87 18 92/43 96 Room Air 11/08 1500 98.1 88 18 109/62 98 Room Air 11/08 1224 97.5 82 18 110/60 95 Room Air Intake & Output 11/09 0400 11/08 1600 11/08 0400 11/07 0400 Intake Total 560 880 3319 Output Total 300 Balance 266 163 1163 Intake, IV 417 091 3744 Intake, Oral 0 0 Output, Urine 300 Patient 143 lb 120 lb 130 lb Weight Weight Bed scale Reported by Patient Reported by Patient Measurement Method Physical Exam General Appearance: no apparent distress, alert, comfortable Head: atraumatic, + temporal wasting. Eyes: Bilateral: normal appearance. Ears, Nose, Throat: normal pharynx, normal ENT inspection, hearing grossly normal Neck: normal inspection, supple, full range of motion Respiratory: normal breath sounds, chest non-tender, no respiratory distress Cardiovascular: regular rate/rhythm Gastrointestinal: normal bowel sounds, soft, tenderness, RUQ tenderness + murphys sign Rectal: deferred Back: normal inspection, normal range of motion Extremities: normal inspection, no edema Neurologic/Psych: no motor/sensory deficits, awake, alert, oriented x 3 Results Pertinent Lab Results: Laboratory Tests 11/09 11/09 11/09 11/09 0550 0440 0440 0120 Chemistry Sodium (137 - 145 mmol/L) 136 L Potassium (3.5 - 5.1 mmol/L) 3.9 Chloride (98 - 107 mmol/L) 108 H Carbon Dioxide (22 - 30 mmol/L) 21 L Anion Gap (5 - 16) 7 BUN (7 - 17 mg/dL) 10 Creatinine (0.5 - 1.0 mg/dL) 0.9 Estimated GFR (>60 ml/min) > 60 BUN/Creatinine Ratio (7 - 25 %) 11.1 Lactic Acid (0.7 - 2.1 mmol/L) Pending 0.5 L 2.0 Total Bilirubin (0.2 - 1.3 mg/dL) 1.3 Direct Bilirubin (< 0.4 mg/dL) 0.9 H AST (14 - 36 U/L) 125 H ALT (9 - 52 U/L) 132 H Alkaline Phosphatase (<127 U/L) 177 H Troponin I (< 0.11 ng/ml) Pending 0.09 Total Protein (6.3 - 8.2 g/dL) 4.9 L Albumin (3.5 - 5.0 g/dL) 2.5 L Hematology CBC w Diff NO MAN DIFF REQ WBC (4.8 - 10.8 /CUMM) 8.1 RBC (4.20 - 5.40 /CUMM) 2.83 L Hgb (12.0 - 16.0 G/DL) 8.8 L Hct (37 - 47 %) 26.3 L MCV (81.0 - 99.0 FL) 92.7 MCH (27.0 - 31.0 PG) 31.2 H MCHC (33.0 - 37.0 G/DL) 33.7 RDW (11.5 - 14.5 %) 14.1 Plt Count (130 - 400 /CUMM) 160 MPV (7.4 - 10.4 FL) 7.7 Gran % (42.2 - 75.2 %) 74.7 Lymphocytes % (20.5 - 51.1 %) 15.2 L Monocytes % (1.7 - 9.3 %) 9.5 H Eosinophils % (0 - 5 %) 0.5 Basophils % (0.0 - 2.0 %) 0.1 Absolute Granulocytes (1.4 - 6.5 /CUMM) 6.0 Absolute Lymphocytes (1.2 - 3.4 /CUMM) 1.2 Absolute Monocytes (0.10 - 0.60 /CUMM) 0.8 H Absolute Eosinophils (0.0 - 0.7 /CUMM) 0 Absolute Basophils (0.0 - 0.2 /CUMM) 0 11/09 11/09 11/08 11/08 0004 0000 1652 1355 Chemistry Troponin I (< 0.11 ng/ml) 0.10 Cancelled 0.12 *H 0.11 *H 11/08 0944 Chemistry Sodium (137 - 145 mmol/L) 130 L Potassium (3.5 - 5.1 mmol/L) 4.2 Chloride (98 - 107 mmol/L) 100 Carbon Dioxide (22 - 30 mmol/L) 20 L Anion Gap (5 - 16) 9 BUN (7 - 17 mg/dL) 10 Creatinine (0.5 - 1.0 mg/dL) 0.7 Estimated GFR (>60 ml/min) > 60 BUN/Creatinine Ratio (7 - 25 %) 14.3 Glucose (65 - 99 mg/dL) 120 H Serum Osmolality (285 - 295 MOSM/KG) 275 L Calcium (8.4 - 10.2 mg/dL) 8.1 L Total Bilirubin (0.2 - 1.3 mg/dL) 0.8 AST (14 - 36 U/L) 37 H ALT (9 - 52 U/L) 40 Alkaline Phosphatase (<127 U/L) 99 Troponin I (< 0.11 ng/ml) 0.09 Total Protein (6.3 - 8.2 g/dL) 6.1 L Albumin (3.5 - 5.0 g/dL) 3.2 L Globulin (1.9 - 4.2 gm/dL) 2.9 Albumin/Globulin Ratio (1.1 - 2.2 %) 1.1 Lipase (23 - 300 U/L) 31 Hematology CBC w Diff NO MAN DIFF REQ WBC (4.8 - 10.8 /CUMM) 13.5 H RBC (4.20 - 5.40 /CUMM) 3.51 L Hgb (12.0 - 16.0 G/DL) 10.8 L Hct (37 - 47 %) 32.3 L MCV (81.0 - 99.0 FL) 92.0 MCH (27.0 - 31.0 PG) 30.6 MCHC (33.0 - 37.0 G/DL) 33.3 RDW (11.5 - 14.5 %) 13.9 Plt Count (130 - 400 /CUMM) 192 MPV (7.4 - 10.4 FL) 7.6 Gran % (42.2 - 75.2 %) 80.7 H Lymphocytes % (20.5 - 51.1 %) 11.0 L Monocytes % (1.7 - 9.3 %) 7.9 Eosinophils % (0 - 5 %) 0.1 Basophils % (0.0 - 2.0 %) 0.3 Absolute Granulocytes (1.4 - 6.5 /CUMM) 10.9 H Absolute Lymphocytes (1.2 - 3.4 /CUMM) 1.5 Absolute Monocytes (0.10 - 0.60 /CUMM) 1.1 H Absolute Eosinophils (0.0 - 0.7 /CUMM) 0 Absolute Basophils (0.0 - 0.2 /CUMM) 0 Imaging/Other Studies: SERVICE DATE: 11/08/17 EXAM TYPE: CAT - CT ABD & PELVIS W IV CONTRAST EXAMINATION: CT ABDOMEN AND PELVIS WITH CONTRAST CLINICAL INFORMATION: 77-year-old woman with abdominal pain COMPARISON: CT abdomen and pelvis 06/04/2017 TECHNIQUE: Multidetector volumetric imaging was performed of the abdomen and pelvis following IV administration of 95 mL of Optiray 320 intravenous contrast. Sagittal and coronal reformatted images were obtained on the technologist's workstation. DLP: 286 mGy-cm FINDINGS: LUNG BASES: There is minimal dependent atelectasis and respiratory motion artifact. Trace right pleural effusion. There are postsurgical changes of median sternotomy and several pacemaker/ICD leads. Atherosclerosis of the coronary arteries is noted. Mild mitral annular calcification. The distal esophageal wall is mildly thickened. LIVER, GALLBLADDER, AND BILIARY TREE: The liver is normal in size, shape, and contour. No focal liver lesion is demonstrated. There is mild gallbladder wall thickening. The gallbladder wall demonstrates mild hyperenhancement. No radiopaque gallstones are demonstrated. The common bile duct is mildly dilated measuring 8 to 9 mm in diameter. There is also prominence of the intrahepatic bile ducts. These findings are new since the CT from 06/04/2017. There is mild fat stranding along the right paracolic gutter and trace free fluid in the right lower quadrant. PANCREAS: Unremarkable. SPLEEN: Unremarkable. ADRENAL GLANDS: Unremarkable. KIDNEYS AND URETERS: The kidneys are normal in size, shape, and attenuation. No hydronephrosis, hydroureter, or calculi seen. No perinephric stranding. BLADDER: Unremarkable. GASTROINTESTINAL TRACT: Distal esophageal wall thickening. The stomach and duodenum are unremarkable. The small bowel is nondilated. Moderate sigmoid diverticulosis is again seen without adjacent inflammatory change. The remainder of the colon is unremarkable. The appendix is not visualized and may be surgically absent. ABDOMINAL WALL: No significant hernia is appreciated. LYMPH NODES: No evidence of pathologic lymphadenopathy by size criteria. A portal caval lymph node and right para-aortic lymph node are slightly more prominent when compared to the previous CT. Question small lymph nodes adjacent to the neck of the gallbladder. VASCULAR: There is moderate aortoiliac atherosclerosis, particularly at the aortic bifurcation. Ectasia of the proximal right common iliac artery. This is similar compared to the prior study. PELVIC VISCERA: There is a 2.7 cm round enhancing mass at the uterine fundus most likely representing a fibroid. OSSEOUS STRUCTURES: No acute or suspicious osseous abnormality. Mild degenerative changes of the spine. Degenerative changes of the pubic symphysis. IMPRESSION: Gallbladder wall thickening and mild intra and extrahepatic biliary ductal dilation. There is also mild inflammation along the right flank and fluid tracking down to the right lower quadrant. Overall findings may reflect acute cholecystitis. Choledocholithiasis is not entirely excluded. Further evaluation with ultrasound may be helpful for demonstration of nonradiopaque gallstones. Possible reactive upper abdominal lymph nodes. Moderate sigmoid diverticulosis without evidence of acute diverticulitis. The right colon is also unremarkable. Distal esophageal wall thickening suggestive of esophagitis. Atherosclerosis including coronary artery disease. Prior median sternotomy, and cardiac pacemaker. Uterine fibroid. Assessment/Plan Assessment/Recommendations: Assessment: Ms. Tobar is a 77-year-old female with multiple medical problems who presented to the ER last night with complaints of worsening right upper quadrant pain associated with bilious vomiting which based on her imaging and lab work appears to be secondary to acute cholecystitis. She has had a mild elevation in her bilirubin from admission and she does have dilated ducts on her CAT scan so it is certainly possible that she could have cholangitis as well and stands to reason that the worsening symptoms she has had over the past 2 days may have been from her passing gallstones. That being said, she has been afebrile, is without signs of biliary obstruction such as elda colored stool or dark urine, her elevated white count on admisson has improved with antibiotics, her blood cultures so far are negative and while her blood pressure is on the low side I suspect that is more related to her low EF so while she ultimately may need an ERCP I do not feel it is emergent at this time. Unfortunately, ERCP services are not available this weekend so it may be reasonable to transfer her at this time as if she does decompensate she may then become too unstable for transfer. An alternative would be to place a cholecystostomy tube which could potentially be done today and that would conceivably drain the gallbladder and her biliary tree provided she does not also have a cystic duct obstruction. It would be unusual for her to have an obstruction at her cystic duct and in her CBD as if the cystic duct is blocked stones shouldn't be able to get out of the gallbladder, but it is possible. Removing her GB at some point may be also be considered, but with her multiple comobidities it may be safer to pursue a cholecystostomy tube for acute treatment of her cholecystitis and then possibly pursue a contrast study through that tube to evaluate the CBD for stones if an MRCP can't be done because of her defibrillator. If CBD stones are present on further imaging or if she fails to improve with a cholecystomy tube will then give further consieration for an ERCP with a possible sphincterotomy. Of note, while she does have a history of achalasia and potentially pyloric stenosis I do not feel that those are contributing to her current complaints considering her right upper quadrant tenderness and physical exam, increased liver function tests, and biliary dilatation along with changes of cholecystitis on her CAT scan. Recommendations: 1. Continue broad spectrum antibiotics. 2. Follow LFTs. 3. Follow up US results. 4. Contact IR to give consideration for a cholecystomy tube. 5. If IR is not able to do a cholecystomy tube today or if additional imaging suggests a cystic duct obstruction would give strong consideration to transferring her to a facility where an ERCP could be done emergently should she decompensate. 6. Analgesia and antiemetics as needed. 7. Keep NPO pending a decision on placing a cholecystommy tube. 8. Would also look into whether or not her defibrillator is compatible with an MRI as it may at some point be reasonable to pursue an MRCP to look for any residual choledocholithiasis, but this may not be necessary if her bilirubin continues to increase to a level where an ERCP would clearly be indicated. I will continue to follow this patient and make further recommendations based on her clinical course, repeat imaging, and repeat blood work. Problem List: 1. Abdominal pain 2. Nausea, vomiting, and diarrhea Consult Acknowledgment - Thank you for your consult request.
[2017-11-09 08:00] VITALS: BP 104/58
--- NOTE | 2017-11-09 09:13 | Cons- CRCU ---
Shona Villela MD 11/09/17 0912: General Information and HPI Consulting Request Date of Consult: 11/09/17 Requested By: Reason for Consult: Acute cholecystitis Source of Information: patient, old records Exam Limitations: no limitations History of Present Illness: Patient is a 77 YO F with multiple medical problems including CAD, CABG s/p defibrillator, HrEF of 30%-35%, achalasia on Botox injection in June of this year and possible pyloric stenosis who presented to the ER last night with reports of worsening abdominal pain and bilious nausea and vomiting. The patient notes that she has been having abdominal issues for the past [address] Russ in [facility] has done approximately 15 upper endoscopies over that time. In addition to complaining of intermittent dysphagia and vomiting over these past 12 year she also notes that she has had right upper quadrant pain intermittently as well. Approximately 2 days ago she states she ate some cereal for breakfast at which point she developed some abdominal pain associated with bilious vomiting. The vomiting and pain persisted and seemed different than her typical symptoms so she presented to the ER yesterday. She has been afebrile at home and she also denies any elda colored stool or dark urine. She has not had any hematemesis. In the ER she was afebrile and hemodynamically stable albeit with a SBP ranging from 80-110. She was not tachycardic. She was noted to have a mild transaminitis with a normal bilirubin and a ct scan showed changes of cholecystitis and mildly dilated biliary ducts. She was given solid food to eat last night and this resulted in some abdominal discomfort and some vomiting. This morning she continues to complain of some right upper quadrant pain, but is requesting to try some lisandra ashley. Allergies/Medications Allergies: Coded Allergies: No Known Allergies (07/03/15) Home Med List: Alprazolam 1 MG TABLET 1 TAB PO TID PRN ANXIETY (Reported) Aspirin (Ecotrin*) 81 MG TABLET. 1 TAB PO DAILY HEART/BLOOD (Reported) Atorvastatin Calcium 80 MG TABLET 1 TAB PO DAILY CHOLESTEROL (Reported) Carvedilol 6.25 MG TABLET 1 TAB PO BID HEART/BP (Reported) Clopidogrel Bisulfate (Clopidogrel) 75 MG TABLET 1 TAB PO DAILY BLOOD THINNER (Reported) Dexlansoprazole (Dexilant) 30 MG CAP.DR.BP 1 CAP PO DAILY GI (Reported) Lisinopril 20 MG TABLET 1 TAB PO DAILY BP (Reported) Quetiapine Fumarate 25 MG TABLET 1 TAB PO DAILY MENTAL HEALTH (Reported) Venlafaxine HCl (Venlafaxine HCl ER) 150 MG CAP.ER.24H 1 CAP PO DAILY MENTAL HEALTH (Reported) Zolpidem Tartrate 10 MG TABLET 1 TAB PO QPM SLEEP (Reported) Current Medications: Current Medications Sig/Richa Start time Last Medication Dose Route Stop Time Status Admin Acetaminophen 650 MG Q6P PRN 11/09 001 AC PO Acetaminophen 1,000 MG Q6 PRN 11/09 0015 AC 11/09 IV 0848 Acetaminophen 0 .STK-MED ONE 11/08 1637 DC PO Acetaminophen 650 MG ONCE ONE 11/08 1600 DC 11/08 PO 11/08 1601 1639 Alprazolam 1 MG TID PRN 11/09 0030 AC PO 11/16 0029 Aspirin Buffered 81 MG DAILY 11/09 899 AC PO Atorvastatin Calcium 80 MG 1700 11/09 1700 AC PO Carvedilol 6.25 MG BID 11/09 899 AC PO Ceftriaxone Sodium 1,000 MG DAILY 11/09 0300 AC 11/09 IV 0459 Clopidogrel Bisulfate 75 MG DAILY 11/09 899 AC PO Famotidine 20 MG ONCE ONE 11/08 2144 DC 11/08 IV 11/08 Famotidine 0 .STK-MED ONE 11/09 2143 DC IV Heparin Sodium 5,000 UNIT Q8 11/09 1400 AC (Porcine) SC Metoclopramide HCl 10 MG ONCE ONE 11/08 2144 DC 11/08 IV 11/08 Metoclopramide HCl 0 .STK-MED ONE 11/09 2143 DC .ROUTE Metronidazole 500 MG IQ8 11/09 0500 AC 11/09 N/A 1 UNIT IV 0530 Omeprazole 40 MG DAILY AC 11/09 07 AC PO Ondansetron HCl 4 MG Q8P PRN 11/09 0015 AC IV Quetiapine Fumarate 25 MG DAILY 11/09 899 AC PO Sodium Chloride 1,000 ML Q20H 11/09 0530 AC 11/09 IV 11/10 0129 0546 Sodium Chloride 500 ML BOLUS ONE 11/09 529 DC 11/09 IV 11/09 06 0546 Sodium Chloride 500 ML BOLUS ONE 11/09 0415 CAN IV 11/09 0614 Sodium Chloride 500 ML BOLUS ONE 11/09 0515 DC 08/ IV 11/09 0614 0512 Sodium Chloride 500 ML BOLUS ONE 11/09 0100 DC IV 11/09 0159 Sodium Chloride 500 ML BOLUS ONE 11/09 0015 DC 08/ IV 11/09 0114 0011 Sodium Chloride 500 ML BOLUS ONE 11/08 1930 DC 08/ IV 11/08 2028 1943 Sodium Chloride 1,000 ML BOLUS ONE 11/08 0915 DC 08/ IV 11/08 1014 0954 Venlafaxine HCl 150 MG DAILY 11/09 0900 DC PO Venlafaxine HCl 150 MG DAILY 11/09 0800 AC PO Review of Systems Review of Systems Constitutional: Reports: see HPI. Past History Travel History Traveled to [place] past 21 day No Medical History Blood Transfusion Hx: No EENT: ACHALSIA Cardiovascular: CAD (s/p cabg, stents), CHF, hypertension, ppm Gastrointestinal: pyloric stenosis Surgical History Surgical History: none (ppm), CABG Psychosocial History Where Do You Live? Home Who Do You Live With? self Services at Home: None Smoking Status: Never Smoked ETOH Use: denies use Illicit Drug Use: denies illicit drug use Functional Ability ADLs Independent: dressing, eating, toileting, bathing. Ambulation: independent IADLs Independent: shopping, housework, finances, food prep, telephone, transportation , medication admin. Employment History Employment: Retired Exam & Diagnostic Data Last 24 Hrs of Vital Signs/I&O Vital Signs Date Time Temp Pulse Resp B/P B/P Pulse O2 O2 Flow FiO2 Mean Ox Delivery Rate 11/10 799 97.7 74 22 104/58 97 Nasal 2.0L Cannula 11/09 08 95 Nasal 2.0L Cannula 11/09 0618 98 Nasal 2.0L Cannula 11/09 0502 98.5 73 24 80/50 98 Nasal Cannula 11/09 0047 98.4 91 24 120/60 92 Nasal 2.0L Cannula 11/09 0044 Nasal 2.0L Cannula 11/09 0023 91 18 117/53 96 Nasal 2.0L Cannula 11/09 0001 97.8 92 18 105/53 96 Nasal 2.0L Cannula 11/08 2341 104 18 93/54 94 Room Air 11/08 2320 105 18 90/42 93 Room Air 11/08 1942 97.9 78 17 104/49 99 Room Air 11/08 1858 87 18 92/43 96 Room Air 11/08 1500 98.1 88 18 109/62 98 Room Air 11/08 1224 97.5 82 18 110/60 95 Room Air Intake & Output 11/09 1600 08 0800 08/ 0000 Intake Total 561 500 Output Total 300 Balance 261 500 Intake, IV 561 500 Intake, Oral 0 Output, Urine 300 Patient 64.977 kg Weight Weight Bed scale Measurement Method Physical Exam General Appearance: well developed/nourished, alert, awake, mild distress Head: atraumatic, normal appearance Eyes: Bilateral: normal appearance, PERRL. Ears, Nose, Throat: normal pharynx, normal ENT inspection Neck: normal inspection, supple Respiratory: normal breath sounds, chest non-tender, no respiratory distress Cardiovascular: regular rate/rhythm Peripheral Pulses: 2+ radial (R), 2+ radial (L) Gastrointestinal: tenderness in the RUQ present. normal bowel sounds Extremities: normal inspection, normal capillary refill, normal range of motion Last 48 Hrs of Labs/Richie: Laboratory Tests 11/09/17 1540: CBC w Diff NO MAN DIFF REQ, RBC 2.85 L, MCV 93.0, MCH 31.1 H, MCHC 33.4, RDW 13.9, MPV 7.7, Gran % 72.6, Lymphocytes % 16.8 L, Monocytes % 9.6 H, Eosinophils % 0.7, Basophils % 0.3, Absolute Granulocytes 5.1, Absolute Lymphocytes 1.2, Absolute Monocytes 0.7 H, Absolute Eosinophils 0.1, Absolute Basophils 0 11/09/17 1525: Anion Gap 5, Estimated GFR > 60, Glucose 75, Lactic Acid 0.6 L, Calcium 8.0 L, Phosphorus 2.8, Magnesium 1.9, Total Bilirubin 0.9, AST 93 H, ALT 117 H, Albumin 2.6 L 11/09/17 1212: Urinalysis LIGHT H, Urine Color YEL, Urine Clarity CLEAR, Urine pH 6.0, Ur Specific [place] <= 1.005, Urine Protein NEG, Urine Ketones NEG, Urine Nitrite NEG, Urine Bilirubin NEG, Urine Urobilinogen 0.2, Ur Leukocyte Esterase NEG, Ur Microscopic SEDIMENT EXAMINED, Urine RBC RARE, Ur Epithelial Cells RARE, Urine Hemoglobin SMALL H, Urine Glucose NEG 11/09/17 1045: Total Bilirubin 1.0, Direct Bilirubin 0.7 H, AST 102 H, ALT 119 H, Alkaline Phosphatase 181 H, Total Protein 5.0 L, Albumin 2.5 L, PT 14.6 H, INR 1.34 H, APTT 24 L 11/09/17 1038: APTT Cancelled 11/09/17 0550: Lactic Acid 0.6 L, Troponin I 0.08 11/09/17 0440: Lactic Acid 0.5 L 11/09/17 0440: Anion Gap 7, Estimated GFR > 60, BUN/Creatinine Ratio 11.1, Total Bilirubin 1.3, Direct Bilirubin 0.9 H, AST 125 H, ALT 132 H, Alkaline Phosphatase 177 H, Troponin I 0.09, Total Protein 4.9 L, Albumin 2.5 L, CBC w Diff NO MAN DIFF REQ, RBC 2.83 L, MCV 92.7, MCH 31.2 H, MCHC 33.7, RDW 14.1, MPV 7.7, Gran % 74.7, Lymphocytes % 15.2 L, Monocytes % 9.5 H, Eosinophils % 0.5, Basophils % 0.1, Absolute Granulocytes 6.0, Absolute Lymphocytes 1.2, Absolute Monocytes 0.8 H, Absolute Eosinophils 0, Absolute Basophils 0 11/09/17 0120: Lactic Acid 2.0 11/09/17 0004: Troponin I 0.10 11/09/17 0000: Troponin I Cancelled 11/08/17 1652: Troponin I 0.12 *H 11/08/17 1355: Troponin I 0.11 *H 11/08/17 0944: Anion Gap 9, Estimated GFR > 60, BUN/Creatinine Ratio 14.3, Glucose 120 H, Serum Osmolality 275 L, Calcium 8.1 L, Total Bilirubin 0.8, AST 37 H, ALT 40, Alkaline Phosphatase 99, Troponin I 0.09, Total Protein 6.1 L, Albumin 3.2 L, Globulin 2.9, Albumin/Globulin Ratio 1.1, Lipase 31, CBC w Diff NO MAN DIFF REQ, RBC 3.51 L, MCV 92.0, MCH 30.6, MCHC 33.3, RDW 13.9, MPV 7.6, Gran % 80.7 H, Lymphocytes % 11.0 L, Monocytes % 7.9, Eosinophils % 0.1, Basophils % 0.3, Absolute Granulocytes 10.9 H, Absolute Lymphocytes 1.5, Absolute Monocytes 1.1 H, Absolute Eosinophils 0, Absolute Basophils 0 Diagnostic Data Other Results abdomen and pelvis CT IMPRESSION: Gallbladder wall thickening and mild intra and extrahepatic biliary ductal dilation. There is also mild inflammation along the right flank and fluid tracking down to the right lower quadrant. Overall findings may reflect acute cholecystitis. Choledocholithiasis is not entirely excluded. Further evaluation with ultrasound may be helpful for demonstration of nonradiopaque gallstones. Possible reactive upper abdominal lymph nodes. Moderate sigmoid diverticulosis without evidence of acute diverticulitis. The right colon is also unremarkable. Distal esophageal wall thickening suggestive of esophagitis. Atherosclerosis including coronary artery disease. Prior median sternotomy, and cardiac pacemaker. Uterine fibroid. Ultrasound abdomen IMPRESSION: - Cholelithiasis, gallbladder wall edema and hyperemia with reported tenderness over the gallbladder. The constellation of findings are consistent with acute cholecystitis. - Gallbladder polyp measuring up to 0.8 cm is noted. - Common bile duct is mildly dilated measuring up to 0.8 cm diameter; however, no sonographic evidence of choledocholithiasis. Assessment/Plan CRCU Impression/Plan: Patient is a 77-year-old female with past medical history significant for pyloric stenosis, achalasia (on Botox) for the past 12 years underwent multiple endoscopies, nauseous and vomits at baseline, CAD status post CABG, defibrillator placement, HFrEF presented with acute worsening of abdominal pain, nausea, vomiting. She did have on and off right upper quadrant pain for a while now. Vital signs at presentation are significant for afebrile, pulse 80s, blood pressure 92/42 mmHg, saturating well on 2 L oxygen. Physical examination is significant for right upper quadrant tenderness Labs are consistent with white count of 13.5 improved to 7, H&H 10/32 decreased to 8.9/26, chem panel unremarkable with a lactic acid of 0.6, AST/ALT 37/40 initially however increased to 125/132 and gradually decreased to 93/117. Troponin negative. Mild elevation in total bilirubin which improved. PT 14, INR 1.3, PTT 24. Imaging studies - CT abdomen and pelvis consistent with acute cholecystitis/ abdominal ultrasound was requested which is redemonstrated cholecystitis. She also found to have intra-and extrahepatic biliary dilatation however she had a defibrillator for further evaluation with an MRI. Admitted to telemetry floor initially for concerns of acute cholecystitis and consulted surgical team. Overnight patient decompensated with a low blood pressure 80/50 which improved to 104/58 after 250 mg. Subsequently transferred to ICU as found to have elevated transaminitis at the same time with concerns of cholangitis. Recommendations: Acute cholecystitis with ascending cholangitis Imaging findings and clinical picture are consistent with acute cholecystitis. Although presented with normal transaminases, subsequently elevated and hypotensive concerning for acute ascending cholangitis. She was given to 250 mL of bolus and transferred to ICU. Evaluated by gastroenterology in the morning and suggested cholecystostomy tube given poor surgical candidate. This is agreeable with surgical team as well, IR consulted. Patient received a dose of Plavix and aspirin in the morning which halted the procedure. she is getting a HIDA scan today. She will be scheduled for ERCP or cholecystostomy tube tomorrow. * Currently on IV fluids 50 mL/hr while Npo * Broadened coverage to IV Unasyn (gram negatives and anaerobes) * Follow up with HIDA scan today * Might proceed with cholecystostomy tube tomorrow * Consider clear liquids tonight. * Hold aspirin and Plavix * Continue supportive care with antiemetics and pain medications CAD s/p CABG and defibrillator Continue atorvastatin, Coreg held now, continue as tolerated. Holding aspirin and Plavix. Elevated Troponin In the setting of sepsis, no need of further evaluation. Mental health Continue venlafaxine, daily pain and Alprox as needed DVT prophylaxis Alps for now CODE STATUS full code Problem List: 1. Nausea, vomiting, and diarrhea 2. Abdominal pain 3. Pyloric stenosis in adult Consult Acknowledgment - Thank you for your consult request. Shalom Watson MD 11/09/17 1016: General Information and HPI Allergies/Medications Current Medications: Current Medications Sig/Richa Start time Last Medication Dose Route Stop Time Status Admin Acetaminophen 650 MG Q6P PRN 11/09 0015 AC PO Acetaminophen 1,000 MG Q6 PRN 11/09 0015 AC 11/09 IV 0848 Acetaminophen 0 .STK-MED ONE 11/08 1637 DC PO Acetaminophen 650 MG ONCE ONE 11/08 1600 DC 11/08 PO 11/08 1601 1639 Alprazolam 1 MG TID PRN 11/09 0030 AC PO 11/16 0029 Aspirin Buffered 81 MG DAILY 11/09 899 AC PO Atorvastatin Calcium 80 MG 1700 11/09 1700 AC PO Carvedilol 6.25 MG BID 11/09 899 AC PO Ceftriaxone Sodium 1,000 MG DAILY 11/09 0300 AC 11/09 IV 0459 Clopidogrel Bisulfate 75 MG DAILY 11/09 899 AC PO Famotidine 20 MG ONCE ONE 11/08 2144 DC 11/08 IV 11/08 Famotidine 0 .STK-MED ONE 11/09 2143 DC IV Heparin Sodium 5,000 UNIT Q8 11/09 1400 AC (Porcine) SC Metoclopramide HCl 10 MG ONCE ONE 11/08 2144 DC 11/08 IV 11/08 Metoclopramide HCl 0 .STK-MED ONE 11/09 2143 DC .ROUTE Metronidazole 500 MG IQ8 11/09 0500 AC 11/09 N/A 1 UNIT IV 0530 Omeprazole 40 MG DAILY AC 11/09 699 AC PO Ondansetron HCl 4 MG Q8P PRN 11/09 0015 AC IV Quetiapine Fumarate 25 MG DAILY 11/09 899 AC PO Sodium Chloride 1,000 ML Q20H 11/09 0530 AC 11/09 IV 11/10 0129 0546 Sodium Chloride 500 ML BOLUS ONE 11/09 529 DC 11/09 IV 11/09 0629 0546 Sodium Chloride 500 ML BOLUS ONE 11/09 0515 CAN IV 11/09 0614 Sodium Chloride 500 ML BOLUS ONE 11/09 0515 DC 11/09 IV 11/09 0614 0512 Sodium Chloride 500 ML BOLUS ONE 11/09 0100 DC IV 11/09 0159 Sodium Chloride 500 ML BOLUS ONE 11/09 0015 DC 11/09 IV 11/09 0114 0011 Sodium Chloride 500 ML BOLUS ONE 11/08 1930 DC 11/08 IV 11/08 2028 194 Venlafaxine HCl 150 MG DAILY 11/09 899 DC PO Venlafaxine HCl 150 MG DAILY 11/09 899 AC PO Exam & Diagnostic Data Last 48 Hrs of Labs/Richie: Laboratory Tests 11/09/17 1540: CBC w Diff NO MAN DIFF REQ, RBC 2.85 L, MCV 93.0, MCH 31.1 H, MCHC 33.4, RDW 13.9, MPV 7.7, Gran % 72.6, Lymphocytes % 16.8 L, Monocytes % 9.6 H, Eosinophils % 0.7, Basophils % 0.3, Absolute Granulocytes 5.1, Absolute Lymphocytes 1.2, Absolute Monocytes 0.7 H, Absolute Eosinophils 0.1, Absolute Basophils 0 11/09/17 1525: Anion Gap 5, Estimated GFR > 60, Glucose 75, Lactic Acid 0.6 L, Calcium 8.0 L, Phosphorus 2.8, Magnesium 1.9, Total Bilirubin 0.9, AST 93 H, ALT 117 H, Albumin 2.6 L 11/09/17 1212: Urinalysis LIGHT H, Urine Color YEL, Urine Clarity CLEAR, Urine pH 6.0, Ur Specific [place] <= 1.005, Urine Protein NEG, Urine Ketones NEG, Urine Nitrite NEG, Urine Bilirubin NEG, Urine Urobilinogen 0.2, Ur Leukocyte Esterase NEG, Ur Microscopic SEDIMENT EXAMINED, Urine RBC RARE, Ur Epithelial Cells RARE, Urine Hemoglobin SMALL H, Urine Glucose NEG 11/09/17 1045: Total Bilirubin 1.0, Direct Bilirubin 0.7 H, AST 102 H, ALT 119 H, Alkaline Phosphatase 181 H, Total Protein 5.0 L, Albumin 2.5 L, PT 14.6 H, INR 1.34 H, APTT 24 L 11/09/17 1038: APTT Cancelled 11/09/17 0550: Lactic Acid 0.6 L, Troponin I 0.08 11/09/17 0440: Lactic Acid 0.5 L 11/09/17 0440: Anion Gap 7, Estimated GFR > 60, BUN/Creatinine Ratio 11.1, Total Bilirubin 1.3, Direct Bilirubin 0.9 H, AST 125 H, ALT 132 H, Alkaline Phosphatase 177 H, Troponin I 0.09, Total Protein 4.9 L, Albumin 2.5 L, CBC w Diff NO MAN DIFF REQ, RBC 2.83 L, MCV 92.7, MCH 31.2 H, MCHC 33.7, RDW 14.1, MPV 7.7, Gran % 74.7, Lymphocytes % 15.2 L, Monocytes % 9.5 H, Eosinophils % 0.5, Basophils % 0.1, Absolute Granulocytes 6.0, Absolute Lymphocytes 1.2, Absolute Monocytes 0.8 H, Absolute Eosinophils 0, Absolute Basophils 0 11/09/17 0120: Lactic Acid 2.0 11/09/17 0004: Troponin I 0.10 11/09/17 0000: Troponin I Cancelled 11/08/17 1652: Troponin I 0.12 *H 11/08/17 1355: Troponin I 0.11 *H 11/08/17 0944: Anion Gap 9, Estimated GFR > 60, BUN/Creatinine Ratio 14.3, Glucose 120 H, Serum Osmolality 275 L, Calcium 8.1 L, Total Bilirubin 0.8, AST 37 H, ALT 40, Alkaline Phosphatase 99, Troponin I 0.09, Total Protein 6.1 L, Albumin 3.2 L, Globulin 2.9, Albumin/Globulin Ratio 1.1, Lipase 31, CBC w Diff NO MAN DIFF REQ, RBC 3.51 L, MCV 92.0, MCH 30.6, MCHC 33.3, RDW 13.9, MPV 7.6, Gran % 80.7 H, Lymphocytes % 11.0 L, Monocytes % 7.9, Eosinophils % 0.1, Basophils % 0.3, Absolute Granulocytes 10.9 H, Absolute Lymphocytes 1.5, Absolute Monocytes 1.1 H, Absolute Eosinophils 0, Absolute Basophils 0 Assessment/Plan CRCU Other Findings/Comments: Patient seen and examined. Chart reviewed. Briefly, the patient is a 77-year- old female with a past medical history significant for pyloric stenosis, CAD status post stenting in 2006, CABG in 2002, AICD status post pacemaker for left bundle branch block, achalasia status post Botox, HFR EF (EF 30-35%), and hypertension. The patient was admitted overnight with complaints of abdominal pain, nausea and vomiting for 2 days. She had greater than 20 episodes of nonbloody vomitus. In the ED, the patient was found to be afebrile, and hypotensive noting her blood pressure improved with IV fluids. The patient had an elevated white blood cell count of 13.5 with a left shift and a lactic acid of 2.0. She had mild transaminitis as well. A CT of the abdomen and pelvis demonstrated gallbladder wall thickening and mild intra-and extrahepatic biliary ductal dilatation. There is also mild inflammation along the right flank and fluid tracking to the right lower quadrant. Findings were thought to reflect acute cholecystitis. The patient was pancultured and evaluated by general surgery and GI. The patient was transferred to the critical care unit after her blood pressure dropped once again requiring IV fluids. The patient is currently awake and alert. She complains of pain in her right upper quadrant. She has good urine output. She is hemodynamically stable at the present time. Impression: 1. Right upper quadrant pain, bilious vomiting, elevated bilirubin and transaminitis, secondary to acute cholecystitis. 2. Possible acute cholangitis. 3. Sepsis secondary to acute cholecystitis. 4. History of heart failure with reduced ejection fraction, last EF 30-35%. 5. Positive troponin likely related to demand ischemia. Plan: * I discussed the case with GI and interventional radiology. After all studies were reviewed, it was concluded the patient would benefit from possible cholecystostomy tube. I discussed this with Dr. Hines, who is requesting a HIDA scan prior to the procedure and we have ordered this to be done stat if possible. * N.p.o. pending cholecystostomy tube. * Gentle IV fluid hydration. Continue normal saline at 50 mL/h. * Hold Coreg. * Strict I's and O's, Hoang catheter. * Follow-up pancultures. * Continue empiric antibiotics - ceftriaxone and flagyl. * Analgesia and antiemetics as needed. * Monitor CBC and ICU bundle every 8 hours today. * Cardiology consult requested -will follow recommendations. * Coreg being held due to hypotension. * Continue current medications. * DVT prophylaxis at all times. * The patient is critically ill and continues to require close monitoring. Will follow in the CRCU. Consult Acknowledgment - Thank you for your consult request.
--- NOTE | 2017-11-09 09:34 | Admission Certification ---
Admission Certification Certification Statement - As attending physician, I certify that at the time of - admission, based on clinical presentation, severity of - symptoms, need for further diagnostic testing and - therapeutic interventions, and risk of adverse outcomes - without in-hospital treatment, in my clinical assessment, - this patient requires an acute hospital stay for a minimum - of two nights or longer. I have also considered psychsocial - factors such as support system, advanced age, financial - issues, cognitive issues, and failed out-patient treatments, - past re-admission history, safety of patient, and lack of - compliance as applicable. Specific rationale supporting this admission is: Abdominal pain, cholangitis management, antibiotic therapy, IVF resuscitation.
--- NOTE | 2017-11-09 10:17 | ULTRASOUND REPORT ---
EXAMINATION: US ABDOMEN LIMITED CLINICAL INFORMATION: 77-year-old female with Mortensen's sign and leukocytosis. Possible cholecystitis. COMPARISON: None TECHNIQUE: Real-time imaging of the right upper quadrant abdominal viscera. FINDINGS: PANCREAS: Pancreas is partially obscured by bowel gas. The visualized portions of the pancreatic head, neck and body are normal. No pancreatic ductal dilatation. LIVER: The liver has normal size, contour and attenuation. No focal hepatic lesions are seen. GALLBLADDER: A nonmobile gallstone measuring up to 1.7 cm seen within the gallbladder neck. Also, there is a nonmobile, nonshadowing structure measuring up to 0.8 cm, consistent with a polyp. Gallbladder wall is edematous and measures up to 0.7 cm thick. Color Doppler images show hyperemic appearance of the gallbladder wall. The certified neurodiagnostic technologist reports that patient had tenderness over the region of the gallbladder. COMMON BILE DUCT: Common duct is mildly dilated and measures up to 0.8 cm maximum diameter. No calculi are identified within the common duct. RIGHT KIDNEY: The right kidney is approximately 8.5 cm in length. Mild atrophy of renal cortex. No focal parenchymal lesion, hydronephrosis or nephrolithiasis. FREE FLUID: None detected. IMPRESSION: - Cholelithiasis, gallbladder wall edema and hyperemia with reported tenderness over the gallbladder. The constellation of findings are consistent with acute cholecystitis. - Gallbladder polyp measuring up to 0.8 cm is noted. - Common bile duct is mildly dilated measuring up to 0.8 cm diameter; however, no sonographic evidence of choledocholithiasis.
[2017-11-09 11:25] LABS: PT 14.6 SEC (9.4-12.5)
[2017-11-09 11:38] LABS: PTT 24 SEC (25-37)
--- NOTE | 2017-11-09 15:30 | Cons- Cardiology ---
General Information and HPI Consulting Request Date of Consult: 11/09/17 Requested By: Rogelio Gross MD Reason for Consult: Positive troponin History of Present Illness: The patient is a 77-year-old female with history of CAD, hypertension, CABG, pacemaker with possible ICD, LVEF 3035%. She presented with abdominal pain, nausea, and vomiting 2 days. She was noted to be hypotensive in the emergency department, and blood pressure improved with IV fluid. She was found to have elevated white blood count. CT scan revealed gallbladder wall thickening consistent with possible cholecystitis. Troponin was noted to be mildly elevated. The patient is being planned for possible surgery. She reports that she has been stable from a cardiac standpoint. No recent chest pain. No palpitations. No shortness of breath. No diaphoresis. No syncope. Allergies/Medications Allergies: Coded Allergies: No Known Allergies (07/03/15) Home Med List: Alprazolam 1 MG TABLET 1 TAB PO TID PRN ANXIETY (Reported) Aspirin (Ecotrin*) 81 MG TABLET.DR 1 TAB PO DAILY HEART/BLOOD (Reported) Atorvastatin Calcium 80 MG TABLET 1 TAB PO DAILY CHOLESTEROL (Reported) Carvedilol 6.25 MG TABLET 1 TAB PO BID HEART/BP (Reported) Clopidogrel Bisulfate (Clopidogrel) 75 MG TABLET 1 TAB PO DAILY BLOOD THINNER (Reported) Dexlansoprazole (Dexilant) 30 MG CAP.DR.BP 1 CAP PO DAILY GI (Reported) Lisinopril 20 MG TABLET 1 TAB PO DAILY BP (Reported) Quetiapine Fumarate 25 MG TABLET 1 TAB PO DAILY MENTAL HEALTH (Reported) Venlafaxine HCl (Venlafaxine HCl ER) 150 MG CAP.ER.24H 1 CAP PO DAILY MENTAL HEALTH (Reported) Zolpidem Tartrate 10 MG TABLET 1 TAB PO QPM SLEEP (Reported) Current Medications: Current Medications Sig/Richa Start time Last Medication Dose Route Stop Time Status Admin Acetaminophen 650 MG Q6P PRN 11/09 0015 AC PO Acetaminophen 1,000 MG Q6 PRN 11/09 0015 AC 11/09 IV 0848 Acetaminophen 0 .STK-MED ONE 11/08 1637 DC PO Acetaminophen 650 MG ONCE ONE 11/08 1600 DC 11/08 PO 11/08 1601 1639 Alprazolam 1 MG TID PRN 11/09 0030 AC PO 11/16 0029 Ampicillin Sodium/ 3,000 MG Q6 11/09 1200 AC 11/09 Sulbactam Sodium IV 1151 Sodium Chloride 100 ML Aspirin Buffered 81 MG DAILY 11/09 0900 DC 11/09 PO 1028 Atorvastatin Calcium 80 MG 1700 11/09 1700 AC PO Carvedilol 6.25 MG BID 11/09 899 AC PO Ceftriaxone Sodium 1,000 MG DAILY 11/09 0300 DC 11/09 IV 0459 Clopidogrel Bisulfate 75 MG DAILY 11/09 09 DC 11/09 PO 1028 Famotidine 20 MG ONCE ONE 11/08 2144 DC 11/08 IV 11/08 Famotidine 0 .STK-MED ONE 11/09 2143 DC IV Heparin Sodium 5,000 UNIT Q8 11/09 1400 CAN (Porcine) SC Metoclopramide HCl 10 MG ONCE ONE 11/08 2144 DC 11/08 IV 11/08 Metoclopramide HCl 0 .STK-MED ONE 11/09 2143 DC .ROUTE Metronidazole 500 MG IQ8 11/09 0500 DC 11/09 N/A 1 UNIT IV 0530 Omeprazole 40 MG DAILY AC 11/09 07 AC PO Ondansetron HCl 4 MG Q8P PRN 11/09 0015 AC IV Quetiapine Fumarate 25 MG DAILY 11/09 0900 AC 11/09 PO 1027 Sodium Chloride 250 ML BOLUS ONE 11/09 1145 DC 11/09 IV 11/09 1244 1151 Sodium Chloride 1,000 ML Q20H 11/09 0530 AC 11/09 IV 11/10 0129 0546 Sodium Chloride 500 ML BOLUS ONE 11/09 0530 DC 11/09 IV 11/09 0629 0546 Sodium Chloride 500 ML BOLUS ONE 11/09 0515 CAN IV 11/09 0614 Sodium Chloride 500 ML BOLUS ONE 11/09 0515 DC 11/09 IV 11/09 0614 0512 Sodium Chloride 500 ML BOLUS ONE 11/09 0100 DC IV 11/09 0159 Sodium Chloride 500 ML BOLUS ONE 11/09 0015 DC 11/09 IV 11/09 0114 0011 Sodium Chloride 500 ML BOLUS ONE 11/08 1930 DC 11/08 IV 11/08 202 1943 Venlafaxine HCl 150 MG DAILY 11/09 899 DC PO Venlafaxine HCl 150 MG DAILY 11/09 09 AC 11/09 PO 1028 Review of Systems Review of Systems: No fever. No chills. No rash. No tremor. All other systems were reviewed, and were noted to be negative. Past History Travel History Traveled to [place] past 21 day No Medical History Blood Transfusion Hx: No EENT: ACHALSIA Cardiovascular: CAD (s/p cabg, stents), CHF, hypertension, ppm Gastrointestinal: pyloric stenosis Surgical History Surgical History: none (ppm), CABG Family History Relations & Conditions If Any: FATHER Heart attack Psychosocial History Where Do You Live? Home Services at Home: None Smoking Status: Never Smoked ETOH Use: denies use Illicit Drug Use: denies illicit drug use Employment History Employment: Retired Exam & Diagnostic Data Vital Signs and I&O Vital Signs Date Time Temp Pulse Resp B/P B/P Pulse O2 O2 Flow FiO2 Mean Ox Delivery Rate 11/09 1200 95 Nasal 2.0L Cannula 11/09 1028 99/58 11/09 0800 97.7 74 22 104/58 97 Nasal 2.0L Cannula 11/09 0800 95 Nasal 2.0L Cannula 11/09 0618 98 Nasal 2.0L Cannula 11/09 0502 98.5 73 24 80/50 98 Nasal Cannula / 0047 98.4 91 24 120/60 92 Nasal 2.0L Cannula 11/09 0044 Nasal 2.0L Cannula / 0023 91 18 117/53 96 Nasal 2.0L Cannula / 0001 97.8 92 18 105/53 96 Nasal 2.0L Cannula 11/08 2341 104 18 93/54 94 Room Air / 2320 105 18 90/42 93 Room Air 11/08 1942 97.9 78 17 104/49 99 Room Air 11/08 1858 87 18 92/43 96 Room Air Intake & Output 11/09 1600 / 0800 11/09 0000 11/08 1600 11/08 0800 08/ 0000 Intake Total 1180 297 212 9176 Output Total 1050 300 Balance 130 643 203 5516 Intake, IV 1000 693 152 2486 Intake, Oral 180 0 0 Number 0 Bowel Movements Output, Urine 1050 300 Patient 143 lb 130 lb Weight Weight Bed scale Reported by Patient Measurement Method Physical Exam: Gen: The patient is in no acute distress HEENT: Normal nose, ears, and oropharynx. Pupils equal bilaterally. Conjunctiva normal. Neck: Supple with no JVD, no masses, and no thyromegaly Lungs: Clear to auscultation with normal respiratory effort Heart: RRR, S1, S2, 2/6 systolic murmur. No peripheral edema, 2+ pulses in the lower extremities bilaterally Abdomen: Soft, diffusely tender, no masses. No hepatomegaly. No splenomegaly Extremities: No clubbing or cyanosis. Normal muscle strength in the upper and lower extremities Skin: Normal skin turgor with no skin ulcers or lesions noted. Neuro: Cranial nerves intact. Sensation intact Psych: Alert and oriented x 3 with appropriate affect Labs/Richie Results: Laboratory Tests 11/09 11/09 11/09 1212 1045 1038 Chemistry Total Bilirubin (0.2 - 1.3 mg/dL) 1.0 Direct Bilirubin (< 0.4 mg/dL) 0.7 H AST (14 - 36 U/L) 102 H ALT (9 - 52 U/L) 119 H Alkaline Phosphatase (<127 U/L) 181 H Total Protein (6.3 - 8.2 g/dL) 5.0 L Albumin (3.5 - 5.0 g/dL) 2.5 L Coagulation PT (9.4 - 12.5 SEC) 14.6 H INR (0.90 - 1.19) 1.34 H APTT (25 - 37 SEC) 24 L Cancelled Urines Urinalysis LIGHT H Urine Color (YEL,AMB,STR) YEL Urine Clarity (CLEAR) CLEAR Urine pH (5.0 - 8.0) 6.0 Ur Specific Bruce (1.001 - 1.035) <= 1.005 Urine Protein (NEG,<30 MG/DL) NEG Urine Ketones (NEG) NEG Urine Nitrite (NEG) NEG Urine Bilirubin (NEG) NEG Urine Urobilinogen (0.1 - 1.0 EU/dl) 0.2 Ur Leukocyte Esterase (NEG) NEG Ur Microscopic SEDIMENT EXAMINED Urine RBC (0 - 5 /HPF) RARE Ur Epithelial Cells (NONE,FEW) RARE Urine Hemoglobin (NEG) SMALL H Urine Glucose (N MG/DL) NEG 11/09 11/09 11/09 11/09 0550 0440 0440 0120 Chemistry Sodium (137 - 145 mmol/L) 136 L Potassium (3.5 - 5.1 mmol/L) 3.9 Chloride (98 - 107 mmol/L) 108 H Carbon Dioxide (22 - 30 mmol/L) 21 L Anion Gap (5 - 16) 7 BUN (7 - 17 mg/dL) 10 Creatinine (0.5 - 1.0 mg/dL) 0.9 Estimated GFR (>60 ml/min) > 60 BUN/Creatinine Ratio (7 - 25 %) 11.1 Lactic Acid (0.7 - 2.1 mmol/L) 0.6 L 0.5 L 2.0 Total Bilirubin (0.2 - 1.3 mg/dL) 1.3 Direct Bilirubin (< 0.4 mg/dL) 0.9 H AST (14 - 36 U/L) 125 H ALT (9 - 52 U/L) 132 H Alkaline Phosphatase (<127 U/L) 177 H Troponin I (< 0.11 ng/ml) 0.08 0.09 Total Protein (6.3 - 8.2 g/dL) 4.9 L Albumin (3.5 - 5.0 g/dL) 2.5 L Hematology CBC w Diff NO MAN DIFF REQ WBC (4.8 - 10.8 /CUMM) 8.1 RBC (4.20 - 5.40 /CUMM) 2.83 L Hgb (12.0 - 16.0 G/DL) 8.8 L Hct (37 - 47 %) 26.3 L MCV (81.0 - 99.0 FL) 92.7 MCH (27.0 - 31.0 PG) 31.2 H MCHC (33.0 - 37.0 G/DL) 33.7 RDW (11.5 - 14.5 %) 14.1 Plt Count (130 - 400 /CUMM) 160 MPV (7.4 - 10.4 FL) 7.7 Gran % (42.2 - 75.2 %) 74.7 Lymphocytes % (20.5 - 51.1 %) 15.2 L Monocytes % (1.7 - 9.3 %) 9.5 H Eosinophils % (0 - 5 %) 0.5 Basophils % (0.0 - 2.0 %) 0.1 Absolute Granulocytes (1.4 - 6.5 /CUMM) 6.0 Absolute Lymphocytes (1.2 - 3.4 /CUMM) 1.2 Absolute Monocytes (0.10 - 0.60 /CUMM) 0.8 H Absolute Eosinophils (0.0 - 0.7 /CUMM) 0 Absolute Basophils (0.0 - 0.2 /CUMM) 0 11/09 11/09 11/08 11/08 0004 0000 1652 1355 Chemistry Troponin I (< 0.11 ng/ml) 0.10 Cancelled 0.12 *H 0.11 *H 11/08 0944 Chemistry Sodium (137 - 145 mmol/L) 130 L Potassium (3.5 - 5.1 mmol/L) 4.2 Chloride (98 - 107 mmol/L) 100 Carbon Dioxide (22 - 30 mmol/L) 20 L Anion Gap (5 - 16) 9 BUN (7 - 17 mg/dL) 10 Creatinine (0.5 - 1.0 mg/dL) 0.7 Estimated GFR (>60 ml/min) > 60 BUN/Creatinine Ratio (7 - 25 %) 14.3 Glucose (65 - 99 mg/dL) 120 H Serum Osmolality (285 - 295 MOSM/KG) 275 L Calcium (8.4 - 10.2 mg/dL) 8.1 L Total Bilirubin (0.2 - 1.3 mg/dL) 0.8 AST (14 - 36 U/L) 37 H ALT (9 - 52 U/L) 40 Alkaline Phosphatase (<127 U/L) 99 Troponin I (< 0.11 ng/ml) 0.09 Total Protein (6.3 - 8.2 g/dL) 6.1 L Albumin (3.5 - 5.0 g/dL) 3.2 L Globulin (1.9 - 4.2 gm/dL) 2.9 Albumin/Globulin Ratio (1.1 - 2.2 %) 1.1 Lipase (23 - 300 U/L) 31 Hematology CBC w Diff NO MAN DIFF REQ WBC (4.8 - 10.8 /CUMM) 13.5 H RBC (4.20 - 5.40 /CUMM) 3.51 L Hgb (12.0 - 16.0 G/DL) 10.8 L Hct (37 - 47 %) 32.3 L MCV (81.0 - 99.0 FL) 92.0 MCH (27.0 - 31.0 PG) 30.6 MCHC (33.0 - 37.0 G/DL) 33.3 RDW (11.5 - 14.5 %) 13.9 Plt Count (130 - 400 /CUMM) 192 MPV (7.4 - 10.4 FL) 7.6 Gran % (42.2 - 75.2 %) 80.7 H Lymphocytes % (20.5 - 51.1 %) 11.0 L Monocytes % (1.7 - 9.3 %) 7.9 Eosinophils % (0 - 5 %) 0.1 Basophils % (0.0 - 2.0 %) 0.3 Absolute Granulocytes (1.4 - 6.5 /CUMM) 10.9 H Absolute Lymphocytes (1.2 - 3.4 /CUMM) 1.5 Absolute Monocytes (0.10 - 0.60 /CUMM) 1.1 H Absolute Eosinophils (0.0 - 0.7 /CUMM) 0 Absolute Basophils (0.0 - 0.2 /CUMM) 0 Diagnostic Data EKG Results EKG tracings independently reviewed, and revealed atrial sensed ventricular pacing at a rate of [address] scan of the abdomen and pelvis: Gallbladder wall thickening and mild intra and extrahepatic biliary ductal dilation. There is also mild inflammation along the right flank and fluid tracking down to the right lower quadrant. Overall findings may reflect acute cholecystitis. Choledocholithiasis is not entirely excluded. Further evaluation with ultrasound may be helpful for demonstration of nonradiopaque gallstones. Possible reactive upper abdominal lymph nodes. Moderate sigmoid diverticulosis without evidence of acute diverticulitis. The right colon is also unremarkable. Distal esophageal wall thickening suggestive of esophagitis. Atherosclerosis including coronary artery disease. Prior median sternotomy, and cardiac pacemaker. Uterine fibroid. Abdominal ultrasound: - Cholelithiasis, gallbladder wall edema and hyperemia with reported tenderness over the gallbladder. The constellation of findings are consistent with acute cholecystitis. - Gallbladder polyp measuring up to 0.8 cm is noted. - Common bile duct is mildly dilated measuring up to 0.8 cm diameter; however, no sonographic evidence of choledocholithiasis. Echocardiogram 06/06/17: 1. This was a technically difficult examination. 2. Mild to moderate aortic sclerosis is present with minimal aortic insufficiency. 3. Mitral leaflet thickening is present with moderate anular calcification and moderate mitral insufficiency with moderate left atrial enlargement. 4. There is no pericardial fluid detected. 5. The left ventricular chamber size is normal with global hypokinesia which is more pronounced in the mid to distal septum with an ejection fraction of approximately 30-35%. Mild LVH is present with mild diastolic dysfunction. 6. Mild to moderate tricuspid insufficiency is present with mild pulmonic insufficiency and no evidence of pulmonary hypertension. 7. Pacemaker / AICD wires are present in the right heart chambers. Assessment/Plan Assessment/Plan The patient is a 77-year-old female with history of CAD, CABG, chronic HFrEF, hypertension, and pacemaker with possible ICD presenting with acute cholecystitis and possible cholangitis. The patient is noted to have a mild troponin elevation, which is likely secondary to sepsis and demand ischemia. There is no evidence at this point of acute coronary syndrome. Recommendations: * Agree with IV antibiotics and surgical evaluation for cholecystitis and possible acute cholangitis. * Agree with gentle IV hydration * Continue carvedilol for cardiac protection * Continue low-dose aspirin if possible * Given improvement in troponin level, I recommend no further cardiac workup at this time unless the patient develops cardiac symptoms or troponin value increases. Consult Acknowledgment - Thank you for your consult request.
[2017-11-09 15:40] VITALS: BP 98/52
[2017-11-09 15:50] LABS: ABSOLUTE BASOPHIL COUNT 0 /CUMM (0.0-0.2); ABSOLUTE EOSINOPHIL COUNT 0.1 /CUMM (0.0-0.7); ABSOLUTE GRANULOCYTE CT 5.1 /CUMM (1.4-6.5); ABSOLUTE LYMPH COUNT 1.2 /CUMM (1.2-3.4); ABSOLUTE MONOCYTE COUNT 0.7 /CUMM (0.10-0.60); BASOPHIL % 0.3 % (0.0-2.0); EOSINOPHIL % 0.7 % (0-5); GRANULOCYTE % 72.6 % (42.2-75.2); HEMATOCRIT 26.5 % (37-47); MEAN CORPUSCULAR HGB 31.1 PG (27.0-31.0); MEAN CORPUSCULAR HGB CONC 33.4 G/DL (33.0-37.0); MEAN PLATELET VOLUME 7.7 FL (7.4-10.4); PLATELET COUNT 154 /CUMM (130-400); RBC DISTRIBUTION WIDTH 13.9 % (11.5-14.5); RED BLOOD CELL CT 2.85 /CUMM (4.20-5.40)
--- NOTE | 2017-11-09 19:00 | NUCLEAR MEDICINE REPORT ---
EXAMINATION: NM HIDA SCAN CLINICAL INFORMATION: Nausea, vomiting and abdominal pain. Acute cholecystitis. COMPARISON: CT images of the abdomen, 11/08/2017. Ultrasound of the abdomen, 11/09/2017. TECHNIQUE: Dynamic imaging over the abdomen was performed after intravenous administration of 5.37 mCi [id number] Choletec.. Scanning was continued for a total of 130 minutes. Lateral image was acquired at 130 minutes. FINDINGS: Normal hepatic uptake and excretion of radiotracer. Proximal common bile duct is visualized by 15 minutes and bowel activity at 24 minutes. Gallbladder activity remained absent after > 2 hrs of imaging. These findings are highly suggestive of cystic duct obstruction and acute cholecystitis. IMPRESSION: There is lack of radiotracer activity in the gallbladder after scanning for > 2 hrs. Findings are highly suggestive of cystic duct obstruction and acute cholecystitis.
[2017-11-10] VITALS: BP 100/64
[2017-11-10 00:17] LABS: ABSOLUTE BASOPHIL COUNT 0 /CUMM (0.0-0.2); ABSOLUTE EOSINOPHIL COUNT 0 /CUMM (0.0-0.7); ABSOLUTE GRANULOCYTE CT 5.5 /CUMM (1.4-6.5); ABSOLUTE LYMPH COUNT 0.9 /CUMM (1.2-3.4); ABSOLUTE MONOCYTE COUNT 0.4 /CUMM (0.10-0.60); BASOPHIL % 0.4 % (0.0-2.0); EOSINOPHIL % 0.6 % (0-5); GRANULOCYTE % 80.1 % (42.2-75.2); HEMATOCRIT 25.6 % (37-47); MEAN CORPUSCULAR HGB 31.1 PG (27.0-31.0); MEAN CORPUSCULAR HGB CONC 33.5 G/DL (33.0-37.0); MEAN PLATELET VOLUME 8.3 FL (7.4-10.4); PLATELET COUNT 142 /CUMM (130-400); RBC DISTRIBUTION WIDTH 14.3 % (11.5-14.5); RED BLOOD CELL CT 2.75 /CUMM (4.20-5.40); WHITE BLOOD CELL COUNT 6.8 /CUMM (4.8-10.8)
[2017-11-10 04:49] LABS: ABSOLUTE BASOPHIL COUNT 0 /CUMM (0.0-0.2); ABSOLUTE EOSINOPHIL COUNT 0.1 /CUMM (0.0-0.7); ABSOLUTE GRANULOCYTE CT 4.7 /CUMM (1.4-6.5); ABSOLUTE LYMPH COUNT 1.1 /CUMM (1.2-3.4); ABSOLUTE MONOCYTE COUNT 0.6 /CUMM (0.10-0.60); BASOPHIL % 0.1 % (0.0-2.0); EOSINOPHIL % 1.2 % (0-5); GRANULOCYTE % 72.9 % (42.2-75.2); HEMATOCRIT 25.1 % (37-47); MEAN CORPUSCULAR HGB 30.8 PG (27.0-31.0); MEAN CORPUSCULAR HGB CONC 33.1 G/DL (33.0-37.0); MEAN PLATELET VOLUME 7.9 FL (7.4-10.4); PLATELET COUNT 139 /CUMM (130-400); RBC DISTRIBUTION WIDTH 14.1 % (11.5-14.5); WHITE BLOOD CELL COUNT 6.4 /CUMM (4.8-10.8)
--- NOTE | 2017-11-10 07:19 | PN- Resident CRCU ---
Subjective HPI/CRCU Issues: 1. Acute cholecystitis, will require cholecystostomy 2. Possible acute cholangitis. 3. Sepsis secondary to acute cholecystitis. 4. History of heart failure with reduced ejection fraction, last EF 30-35%. 5. Positive troponin likely related to demand ischemia. 24 Hour Events: Patient still complaining of nausea, right upper quadrant abdominal pain radiating to the right side of the upper back, hemodynamically stable, HIDA scan showed features of cystic duct obstruction and acute cholecystitis ,will be going to have IR guided cholecystostomy today Objective Vital Signs & I&O Last 8 Hrs of Vitals and I&O: Intake & Output 11/10 1600 Intake Total Output Total Balance Patient 143 lb Weight Exam General Appearance: alert, awake Head: atraumatic, normal appearance Neck: normal inspection, supple Respiratory: normal breath sounds, no respiratory distress Cardiovascular: regular rate/rhythm Gastrointestinal: normal bowel sounds, tender Right upper quadrant, Bowel sounds intact Extremities: no edema Cranial Nerves: normal speech, PERRL Skin: intact Current Medications: Current Medications Sig/Richa Start time Last Medication Dose Route Stop Time Status Admin Acetaminophen 1,000 MG ONCE ONE 11/10 0800 CAN N/A 1 UNIT IV 11/10 0814 Acetaminophen 650 MG Q6P PRN 11/09 0015 AC PO Acetaminophen 1,000 MG Q6 PRN 11/09 0015 AC 11/10 IV 0810 Alprazolam 1 MG TID PRN 11/09 0030 AC 11/09 PO 11/16 0029 2138 Ampicillin Sodium/ 3,000 MG Q6 11/09 1200 AC 11/10 Sulbactam Sodium IV 0553 Sodium Chloride 100 ML Aspirin Buffered 81 MG DAILY 11/09 09 DC 11/09 PO 1028 Atorvastatin Calcium 80 MG 1700 11/09 1700 AC 11/09 PO 1854 Carvedilol 6.25 MG BID 11/09 09 AC 11/10 PO 0819 Ceftriaxone Sodium 1,000 MG DAILY 11/09 0300 DC 11/09 IV 0459 Clopidogrel Bisulfate 75 MG DAILY 11/09 899 DC 11/09 PO 1028 Dextrose/Sodium 1,000 ML ONCE ONE 11/10 0245 AC 11/10 Chloride IV 11/10 2244 0245 Heparin Sodium 5,000 UNIT Q8 11/09 1400 CAN (Porcine) SC Metronidazole 500 MG IQ8 11/09 0500 DC 08/05 N/A 1 UNIT IV 0530 Omeprazole 40 MG DAILY AC 11/09 0700 AC PO Ondansetron HCl 4 MG Q8P PRN 11/09 0015 AC IV Potassium Chloride 10 MEQ Q1H 11/10 0100 DC 11/10 IV 11/10 0201 0200 Quetiapine Fumarate 25 MG DAILY 11/09 0900 AC 08/ PO 0819 Sodium Chloride 250 ML .Q5H 11/09 1615 DC / IV 11/09 2114 1854 Sodium Chloride 250 ML BOLUS ONE 11/09 1145 DC 08/ IV 11/09 1244 1151 Sodium Chloride 1,000 ML Q20H 11/09 0530 DC 08/ IV 11/10 0129 0546 Venlafaxine HCl 150 MG DAILY 11/09 0900 AC 11/10 PO 0819 Impression/Plan Impression/Problem List Impression: 77-year-old female with PMH of pyloric stenosis, CAD status post stenting in 2006, CABG in 2002, AICD status post pacemaker for left bundle branch block, achalasia status post Botox, HFR EF (EF 30-35%), and hypertension. The patient was admitted with complaints of abdominal pain, nausea and vomiting for 2 days. She had greater than 20 episodes of nonbloody vomitus. In the ED, the patient was found to be afebrile, and hypotensive noting her blood pressure improved with IV fluids. The patient had an elevated white blood cell count of 13.5 with a left shift and a lactic acid of 2.0. She had mild transaminitis as well. A CT of the abdomen and pelvis demonstrated gallbladder wall thickening and mild intra-and extrahepatic biliary ductal dilatation. There is also mild inflammation along the right flank and fluid tracking to the right lower quadrant. Findings were thought to reflect acute cholecystitis. The patient was pancultured and evaluated by general surgery and GI. The patient was transferred to the critical care unit after her blood pressure dropped once again requiring IV fluids. The patient is currently awake and alert. She complains of pain in her right upper quadrant. She has good urine output. She is hemodynamically stable at the present time. Impression: 1. Acute cholecystitis:HIDA scan showed activity within the duodenum which means that although she has CBD stone they are currently not obstructed, this also explains the improved bilirubin levels today. 2. Possible acute cholangitis. 3. Sepsis secondary to acute cholecystitis. 4. History of CAD S/P CABG, heart failure with reduced ejection fraction, last EF 30-35%S/P defibilator 5. Positive troponin likely related to demand ischemia. 6. Anemia Plan: * N.p.o. pending cholecystostomy tube. * Gentle IV fluid hydration. Continue normal saline at 50 mL/h, will DC after the procedure * Hold Coreg, on admission the patient was hypotensive * Strict I's and O's, Hoang catheter. * Follow-up pancultures. * IV Tylenol PRN for headaches * Continue empiric antibiotics -Unasyn * Analgesia and antiemetics as needed. * Monitor CBC and ICU bundle every 8 hours today. * Cardiology consult requested -will follow recommendations. * Continue current medications. * DVT prophylaxis at all times. * Continue to monitor in ICU Problem List: 1. Pyloric stenosis in adult 2. Sepsis 3. Cholecystitis Pain Ratin Tomorrow's Labs & Rationales: CBC ICU bundle Plan DVT/Prophylaxis: mechanical
--- NOTE | 2017-11-10 07:46 | PN- Gastroenterology ---
Assessment/Plan GI Assessment/Recommendations: Assessment: Ms. Tobar is a 77 year old female with multiple medical problems including CHF with an EF of 20% and coronary artery disease status post CABG, stent placement, and a defibrillator who was admitted early yesterday morning with right upper quadrant pain increased LFTs and cholecystitis on CAT scan with possible cholangitis. While she was noted to have dilated bile ducts on her CAT scan and ultrasound no choledocholithiasis was appreciated and the HIDA scan did show activity within the duodenum which would mean that even if she has some CBD stones they are currently not obstructing which is also supported by her decreased bilirubin today. While further imaging may also be necessary to clear her CBD I feel that the improved bilirubin and HIDA scan results show that the CBD is not obstructed and I therefore feel her right upper quadrant pain is just secondary to cholecystitis. Considering her cardiac history she is likely not a surgical candidate so again would recommend that a cholecystostomy tube be placed. If an MRCP is not able to be done because of her defibrillator would then give consideration to doing a contrast study through the cholecystostomy tube in an effort to evaluate the CBD and rule out any filling defects which may represent nonobstructing stones. Recommendations: 1. Continue IV antibiotics. 2. Would recontact IR for a cholecystostomy tube. 3. Analgesia and antiemetics as needed. 4. Would keep patient n.p.o. in anticipation of hopefully getting a cholecystostomy tube later today, but after that her diet can likely be advanced as tolerated. 5. Continue to follow daily LFTs. 6. Check with radiology as to if her defibrillator is compatible with an MRI and if it is would then recommend obtaining an MRCP in the next few days to rule out any residual CBD stones which may account for the biliary dilation seen on the CAT scan and ultrasound, albeit the CBD dilation on ultrasound was mild at 0.9 cm. 7. If an MRCP cannot be obtained consideration limited given for a contrast study through the cholecystostomy tube which was placed to more definitively clear the CBD. I will continue to follow this patient and make further recommendations based on her clinical course and results of repeat blood work and imaging if and when it is obtained. Problem List: 1. Abdominal pain 2. Nausea, vomiting, and diarrhea Subjective Subjective: pt s/p US yesterday and HIDA scan both of which were consistent with cholectystitis. cholecystomy tube deferred by IR secondary to plavix given yesterday. no fevers. still with some abdominal pain and nausea, but no vomiting. Objective Vital Signs and I&Os Vital Signs Date Time Temp Pulse Resp B/P B/P Pulse O2 O2 Flow FiO2 Mean Ox Delivery Rate 11/10 0400 98 Nasal 2.0L Cannula 11/10 0000 98.7 66 20 100/64 98 Nasal 2.0L Cannula 11/09 2000 95 Nasal 2.0L Cannula 11/09 1543 96 Nasal 2.0L Cannula 11/09 1540 97.6 69 20 98/52 98 Nasal 2.0L Cannula 11/09 1200 95 Nasal 2.0L Cannula 11/09 1028 99/58 Intake & Output 11/10 1600 11/10 0400 11/09 1600 11/09 0400 11/08 1600 11/08 0400 Intake Total 550 1180 9595 585 4899 Output Total 306 846 8486 Balance 150 630 132 281 4701 Intake, IV 657 364 2874 500 1000 Intake, Oral 0 880 180 0 Number 0 0 0 Bowel Movements Output, Urine 574 742 2711 Patient 143 lb 120 lb 130 lb Weight Weight Bed scale Reported by Patient Reported by Patient Measurement Method Physical Exam General Appearance: no apparent distress, alert, awake, comfortable Head: atraumatic, + temporal wasting Neck: supple Cardiovascular: regular rate/rhythm, palpable defibrillator on chest wall Abdomen: normal bowel sounds, soft, tenderness Extremities: no edema Current Medications: Current Medications Sig/Richa Start time Last Medication Dose Route Stop Time Status Admin Acetaminophen 650 MG Q6P PRN 11/09 0015 AC PO Acetaminophen 1,000 MG Q6 PRN 11/09 0015 AC 11/09 IV 0848 Alprazolam 1 MG TID PRN 11/09 0030 AC 11/09 PO 11/16 0029 2138 Ampicillin Sodium/ 3,000 MG Q6 11/09 1200 AC 11/10 Sulbactam Sodium IV 0553 Sodium Chloride 100 ML Aspirin Buffered 81 MG DAILY 11/09 899 DC 11/09 PO 1028 Atorvastatin Calcium 80 MG 1700 11/09 1700 AC 11/09 PO 1854 Carvedilol 6.25 MG BID 11/09 899 AC PO Ceftriaxone Sodium 1,000 MG DAILY 11/09 0300 DC 11/09 IV 0459 Clopidogrel Bisulfate 75 MG DAILY 11/09 899 DC 11/09 PO 1028 Dextrose/Sodium 1,000 ML ONCE ONE 11/10 0245 AC 11/10 Chloride IV 11/10 2244 0245 Heparin Sodium 5,000 UNIT Q8 11/09 1400 CAN (Porcine) SC Metronidazole 500 MG IQ8 11/09 0500 DC 11/09 N/A 1 UNIT IV 0530 Omeprazole 40 MG DAILY AC 11/09 0700 AC PO Ondansetron HCl 4 MG Q8P PRN 11/09 0015 AC IV Potassium Chloride 10 MEQ Q1H 11/10 0100 DC 11/10 IV 11/10 0201 0200 Quetiapine Fumarate 25 MG DAILY 11/09 09 AC 11/09 PO 1027 Sodium Chloride 250 ML .Q5H 11/09 1615 DC 11/09 IV 11/09 2114 1854 Sodium Chloride 250 ML BOLUS ONE 11/09 1145 DC 11/09 IV 11/09 1244 1151 Sodium Chloride 1,000 ML Q20H 11/09 0530 DC 11/09 IV 11/10 0129 0546 Venlafaxine HCl 150 MG DAILY 11/09 09 DC PO Venlafaxine HCl 150 MG DAILY 11/09 0900 AC 11/09 PO 1028 Results Pertinent Lab Results: Laboratory Tests 11/10 11/09 0355 2145 Chemistry Sodium (137 - 145 mmol/L) 138 140 Potassium (3.5 - 5.1 mmol/L) 4.1 3.3 L Chloride (98 - 107 mmol/L) 112 H 110 H Carbon Dioxide (22 - 30 mmol/L) 23 22 Anion Gap (5 - 16) 3 L 8 BUN (7 - 17 mg/dL) 10 11 Creatinine (0.5 - 1.0 mg/dL) 0.8 0.8 Estimated GFR (>60 ml/min) > 60 > 60 Glucose (65 - 99 mg/dL) 80 140 H Calcium (8.4 - 10.2 mg/dL) 7.7 L 8.0 L Phosphorus (2.5 - 4.5 mg/dL) 3.3 2.1 L Magnesium (1.6 - 2.3 mg/dL) 1.9 1.9 Total Bilirubin (0.2 - 1.3 mg/dL) 0.6 0.6 Direct Bilirubin (< 0.4 mg/dL) 0.5 H AST (14 - 36 U/L) 69 H 77 H ALT (9 - 52 U/L) 97 H 103 H Alkaline Phosphatase (<127 U/L) 212 H Total Protein (6.3 - 8.2 g/dL) 5.0 L Albumin (3.5 - 5.0 g/dL) 2.5 L 2.6 L Hematology CBC w Diff NO MAN DIFF REQ NO MAN DIFF REQ WBC (4.8 - 10.8 /CUMM) 6.4 6.8 RBC (4.20 - 5.40 /CUMM) 2.70 L 2.75 L Hgb (12.0 - 16.0 G/DL) 8.3 L 8.6 L Hct (37 - 47 %) 25.1 L 25.6 L MCV (81.0 - 99.0 FL) 93.0 93.0 MCH (27.0 - 31.0 PG) 30.8 31.1 H MCHC (33.0 - 37.0 G/DL) 33.1 33.5 RDW (11.5 - 14.5 %) 14.1 14.3 Plt Count (130 - 400 /CUMM) 139 142 MPV (7.4 - 10.4 FL) 7.9 8.3 Gran % (42.2 - 75.2 %) 72.9 80.1 H Lymphocytes % (20.5 - 51.1 %) 16.9 L 13.6 L Monocytes % (1.7 - 9.3 %) 8.9 5.3 Eosinophils % (0 - 5 %) 1.2 0.6 Basophils % (0.0 - 2.0 %) 0.1 0.4 Absolute Granulocytes (1.4 - 6.5 /CUMM) 4.7 5.5 Absolute Lymphocytes (1.2 - 3.4 /CUMM) 1.1 L 0.9 L Absolute Monocytes (0.10 - 0.60 /CUMM) 0.6 0.4 Absolute Eosinophils (0.0 - 0.7 /CUMM) 0.1 0 Absolute Basophils (0.0 - 0.2 /CUMM) 0 0 08/05 08/ 1540 1525 Chemistry Sodium (137 - 145 mmol/L) 139 Potassium (3.5 - 5.1 mmol/L) 3.9 Chloride (98 - 107 mmol/L) 113 H Carbon Dioxide (22 - 30 mmol/L) 21 L Anion Gap (5 - 16) 5 BUN (7 - 17 mg/dL) 10 Creatinine (0.5 - 1.0 mg/dL) 0.9 Estimated GFR (>60 ml/min) > 60 Glucose (65 - 99 mg/dL) 75 Lactic Acid (0.7 - 2.1 mmol/L) 0.6 L Calcium (8.4 - 10.2 mg/dL) 8.0 L Phosphorus (2.5 - 4.5 mg/dL) 2.8 Magnesium (1.6 - 2.3 mg/dL) 1.9 Total Bilirubin (0.2 - 1.3 mg/dL) 0.9 AST (14 - 36 U/L) 93 H ALT (9 - 52 U/L) 117 H Albumin (3.5 - 5.0 g/dL) 2.6 L Hematology CBC w Diff NO MAN DIFF REQ WBC (4.8 - 10.8 /CUMM) 7.0 RBC (4.20 - 5.40 /CUMM) 2.85 L Hgb (12.0 - 16.0 G/DL) 8.9 L Hct (37 - 47 %) 26.5 L MCV (81.0 - 99.0 FL) 93.0 MCH (27.0 - 31.0 PG) 31.1 H MCHC (33.0 - 37.0 G/DL) 33.4 RDW (11.5 - 14.5 %) 13.9 Plt Count (130 - 400 /CUMM) 154 MPV (7.4 - 10.4 FL) 7.7 Gran % (42.2 - 75.2 %) 72.6 Lymphocytes % (20.5 - 51.1 %) 16.8 L Monocytes % (1.7 - 9.3 %) 9.6 H Eosinophils % (0 - 5 %) 0.7 Basophils % (0.0 - 2.0 %) 0.3 Absolute Granulocytes (1.4 - 6.5 /CUMM) 5.1 Absolute Lymphocytes (1.2 - 3.4 /CUMM) 1.2 Absolute Monocytes (0.10 - 0.60 /CUMM) 0.7 H Absolute Eosinophils (0.0 - 0.7 /CUMM) 0.1 Absolute Basophils (0.0 - 0.2 /CUMM) 0 0811/09 1212 1045 1038 Chemistry Total Bilirubin (0.2 - 1.3 mg/dL) 1.0 Direct Bilirubin (< 0.4 mg/dL) 0.7 H AST (14 - 36 U/L) 102 H ALT (9 - 52 U/L) 119 H Alkaline Phosphatase (<127 U/L) 181 H Total Protein (6.3 - 8.2 g/dL) 5.0 L Albumin (3.5 - 5.0 g/dL) 2.5 L Coagulation PT (9.4 - 12.5 SEC) 14.6 H INR (0.90 - 1.19) 1.34 H APTT (25 - 37 SEC) 24 L Cancelled Urines Urinalysis LIGHT H Urine Color (YEL,AMB,STR) YEL Urine Clarity (CLEAR) CLEAR Urine pH (5.0 - 8.0) 6.0 Ur Specific [place] (1.001 - 1.035) <= 1.005 Urine Protein (NEG,<30 MG/DL) NEG Urine Ketones (NEG) NEG Urine Nitrite (NEG) NEG Urine Bilirubin (NEG) NEG Urine Urobilinogen (0.1 - 1.0 EU/dl) 0.2 Ur Leukocyte Esterase (NEG) NEG Ur Microscopic SEDIMENT EXAMINED Urine RBC (0 - 5 /HPF) RARE Ur Epithelial Cells (NONE,FEW) RARE Urine Hemoglobin (NEG) SMALL H Urine Glucose (N MG/DL) NEG 11/09 11/09 11/09 11/09 0550 0440 0440 0120 Chemistry Sodium (137 - 145 mmol/L) 136 L Potassium (3.5 - 5.1 mmol/L) 3.9 Chloride (98 - 107 mmol/L) 108 H Carbon Dioxide (22 - 30 mmol/L) 21 L Anion Gap (5 - 16) 7 BUN (7 - 17 mg/dL) 10 Creatinine (0.5 - 1.0 mg/dL) 0.9 Estimated GFR (>60 ml/min) > 60 BUN/Creatinine Ratio (7 - 25 %) 11.1 Lactic Acid (0.7 - 2.1 mmol/L) 0.6 L 0.5 L 2.0 Total Bilirubin (0.2 - 1.3 mg/dL) 1.3 Direct Bilirubin (< 0.4 mg/dL) 0.9 H AST (14 - 36 U/L) 125 H ALT (9 - 52 U/L) 132 H Alkaline Phosphatase (<127 U/L) 177 H Troponin I (< 0.11 ng/ml) 0.08 0.09 Total Protein (6.3 - 8.2 g/dL) 4.9 L Albumin (3.5 - 5.0 g/dL) 2.5 L Hematology CBC w Diff NO MAN DIFF REQ WBC (4.8 - 10.8 /CUMM) 8.1 RBC (4.20 - 5.40 /CUMM) 2.83 L Hgb (12.0 - 16.0 G/DL) 8.8 L Hct (37 - 47 %) 26.3 L MCV (81.0 - 99.0 FL) 92.7 MCH (27.0 - 31.0 PG) 31.2 H MCHC (33.0 - 37.0 G/DL) 33.7 RDW (11.5 - 14.5 %) 14.1 Plt Count (130 - 400 /CUMM) 160 MPV (7.4 - 10.4 FL) 7.7 Gran % (42.2 - 75.2 %) 74.7 Lymphocytes % (20.5 - 51.1 %) 15.2 L Monocytes % (1.7 - 9.3 %) 9.5 H Eosinophils % (0 - 5 %) 0.5 Basophils % (0.0 - 2.0 %) 0.1 Absolute Granulocytes (1.4 - 6.5 /CUMM) 6.0 Absolute Lymphocytes (1.2 - 3.4 /CUMM) 1.2 Absolute Monocytes (0.10 - 0.60 /CUMM) 0.8 H Absolute Eosinophils (0.0 - 0.7 /CUMM) 0 Absolute Basophils (0.0 - 0.2 /CUMM) 0 11/09 11/09 11/08 11/08 0004 0000 1652 1355 Chemistry Troponin I (< 0.11 ng/ml) 0.10 Cancelled 0.12 *H 0.11 *H 11/08 0944 Chemistry Sodium (137 - 145 mmol/L) 130 L Potassium (3.5 - 5.1 mmol/L) 4.2 Chloride (98 - 107 mmol/L) 100 Carbon Dioxide (22 - 30 mmol/L) 20 L Anion Gap (5 - 16) 9 BUN (7 - 17 mg/dL) 10 Creatinine (0.5 - 1.0 mg/dL) 0.7 Estimated GFR (>60 ml/min) > 60 BUN/Creatinine Ratio (7 - 25 %) 14.3 Glucose (65 - 99 mg/dL) 120 H Serum Osmolality (285 - 295 MOSM/KG) 275 L Calcium (8.4 - 10.2 mg/dL) 8.1 L Total Bilirubin (0.2 - 1.3 mg/dL) 0.8 AST (14 - 36 U/L) 37 H ALT (9 - 52 U/L) 40 Alkaline Phosphatase (<127 U/L) 99 Troponin I (< 0.11 ng/ml) 0.09 Total Protein (6.3 - 8.2 g/dL) 6.1 L Albumin (3.5 - 5.0 g/dL) 3.2 L Globulin (1.9 - 4.2 gm/dL) 2.9 Albumin/Globulin Ratio (1.1 - 2.2 %) 1.1 Lipase (23 - 300 U/L) 31 Hematology CBC w Diff NO MAN DIFF REQ WBC (4.8 - 10.8 /CUMM) 13.5 H RBC (4.20 - 5.40 /CUMM) 3.51 L Hgb (12.0 - 16.0 G/DL) 10.8 L Hct (37 - 47 %) 32.3 L MCV (81.0 - 99.0 FL) 92.0 MCH (27.0 - 31.0 PG) 30.6 MCHC (33.0 - 37.0 G/DL) 33.3 RDW (11.5 - 14.5 %) 13.9 Plt Count (130 - 400 /CUMM) 192 MPV (7.4 - 10.4 FL) 7.6 Gran % (42.2 - 75.2 %) 80.7 H Lymphocytes % (20.5 - 51.1 %) 11.0 L Monocytes % (1.7 - 9.3 %) 7.9 Eosinophils % (0 - 5 %) 0.1 Basophils % (0.0 - 2.0 %) 0.3 Absolute Granulocytes (1.4 - 6.5 /CUMM) 10.9 H Absolute Lymphocytes (1.2 - 3.4 /CUMM) 1.5 Absolute Monocytes (0.10 - 0.60 /CUMM) 1.1 H Absolute Eosinophils (0.0 - 0.7 /CUMM) 0 Absolute Basophils (0.0 - 0.2 /CUMM) 0 Imaging/Other Studies: SERVICE DATE: 11/09/17 EXAM TYPE: NUC - HIDA SCAN EXAMINATION: NM HIDA SCAN CLINICAL INFORMATION: Nausea, vomiting and abdominal pain. Acute cholecystitis. COMPARISON: CT images of the abdomen, 11/08/2017. Ultrasound of the abdomen, 11/09/2017. TECHNIQUE: Dynamic imaging over the abdomen was performed after intravenous administration of 5.37 mCi [id number] Choletec.. Scanning was continued for a total of 130 minutes. Lateral image was acquired at 130 minutes. FINDINGS: Normal hepatic uptake and excretion of radiotracer. Proximal common bile duct is visualized by 15 minutes and bowel activity at 24 minutes. Gallbladder activity remained absent after > 2 hrs of imaging. These findings are highly suggestive of cystic duct obstruction and acute cholecystitis. IMPRESSION: There is lack of radiotracer activity in the gallbladder after scanning for > 2 hrs. Findings are highly suggestive of cystic duct obstruction and acute cholecystitis. SERVICE DATE: 11/09/17 EXAM TYPE: US - US-LIMITED ABDOMEN EXAMINATION: US ABDOMEN LIMITED CLINICAL INFORMATION: 77-year-old female with Mortensen's sign and leukocytosis. Possible cholecystitis. COMPARISON: None TECHNIQUE: Real-time imaging of the right upper quadrant abdominal viscera. FINDINGS: PANCREAS: Pancreas is partially obscured by bowel gas. The visualized portions of the pancreatic head, neck and body are normal. No pancreatic ductal dilatation. LIVER: The liver has normal size, contour and attenuation. No focal hepatic lesions are seen. GALLBLADDER: A nonmobile gallstone measuring up to 1.7 cm seen within the gallbladder neck. Also, there is a nonmobile, nonshadowing structure measuring up to 0.8 cm, consistent with a polyp. Gallbladder wall is edematous and measures up to 0.7 cm thick. Color Doppler images show hyperemic appearance of the gallbladder wall. The fastener technologist reports that patient had tenderness over the region of the gallbladder. COMMON BILE DUCT: Common duct is mildly dilated and measures up to 0.8 cm maximum diameter. No calculi are identified within the common duct. RIGHT KIDNEY: The right kidney is approximately 8.5 cm in length. Mild atrophy of renal cortex. No focal parenchymal lesion, hydronephrosis or nephrolithiasis. FREE FLUID: None detected. IMPRESSION: - Cholelithiasis, gallbladder wall edema and hyperemia with reported tenderness over the gallbladder. The constellation of findings are consistent with acute cholecystitis. - Gallbladder polyp measuring up to 0.8 cm is noted. - Common bile duct is mildly dilated measuring up to 0.8 cm diameter; however, no sonographic evidence of choledocholithiasis.
[2017-11-10 08:00] VITALS: BP 123/52
--- NOTE | 2017-11-10 08:32 | PN- CRCU ---
Subjective HPI/Critical Care Issues: The patient is awake and alert. She is complaining of being thirsty and having a headache this morning. She did not sleep well. She continues to have right- sided pain. She remains hemodynamically stable with good urine output. There were no overnight events reported. Objective Current Medications: Current Medications Sig/Richa Start time Last Medication Dose Route Stop Time Status Admin Acetaminophen 1,000 MG ONCE ONE 11/10 0800 CAN N/A 1 UNIT IV 11/10 0814 Acetaminophen 650 MG Q6P PRN 11/09 0015 AC PO Acetaminophen 1,000 MG Q6 PRN 11/09 0015 AC 11/09 IV 0848 Alprazolam 1 MG TID PRN 11/09 0030 AC 11/09 PO 11/16 0029 2138 Ampicillin Sodium/ 3,000 MG Q6 11/09 1200 AC 11/10 Sulbactam Sodium IV 0553 Sodium Chloride 100 ML Aspirin Buffered 81 MG DAILY 11/09 09 DC 08 PO 1028 Atorvastatin Calcium 80 MG 1700 11/09 1700 AC 11/09 PO 1854 Carvedilol 6.25 MG BID 11/09 09 AC PO Ceftriaxone Sodium 1,000 MG DAILY 11/09 0300 DC 11/09 IV 0459 Clopidogrel Bisulfate 75 MG DAILY 11/09 0900 DC 11/09 PO 1028 Dextrose/Sodium 1,000 ML ONCE ONE 11/10 0245 AC 11/10 Chloride IV 11/10 2244 0245 Heparin Sodium 5,000 UNIT Q8 11/09 1400 CAN (Porcine) SC Metronidazole 500 MG IQ8 11/09 0500 DC 11/09 N/A 1 UNIT IV 0530 Omeprazole 40 MG DAILY AC 11/09 0700 AC PO Ondansetron HCl 4 MG Q8P PRN 11/09 0015 AC IV Potassium Chloride 10 MEQ Q1H 11/10 0100 DC 08 IV 11/10 0201 0200 Quetiapine Fumarate 25 MG DAILY 11/09 0900 AC 11/09 PO 1027 Sodium Chloride 250 ML .Q5H 11/09 1615 DC 11/09 IV 11/09 2114 1854 Sodium Chloride 250 ML BOLUS ONE 11/09 1145 DC 08 IV 11/09 1244 1151 Sodium Chloride 1,000 ML Q20H 11/09 0530 DC 08 IV 11/10 0129 0546 Venlafaxine HCl 150 MG DAILY 11/09 0900 DC PO Venlafaxine HCl 150 MG DAILY 11/09 0900 AC 11/09 PO 1028 Vital Signs & I&O Last 24 Hrs of Vitals and I&O: Vital Signs Date Time Temp Pulse Resp B/P B/P Pulse O2 O2 Flow FiO2 Mean Ox Delivery Rate 11/10 0400 98 Nasal 2.0L Cannula 11/10 0000 98.7 66 20 100/64 98 Nasal 2.0L Cannula 11/09 2000 95 Nasal 2.0L Cannula 11/09 1543 96 Nasal 2.0L Cannula 11/09 1540 97.6 69 20 98/52 98 Nasal 2.0L Cannula 11/09 1200 95 Nasal 2.0L Cannula 11/09 1028 99/58 Intake & Output 11/10 1600 11/10 0811/10 0000 Intake Total 550 1180 Output Total 400 550 Balance 150 630 Intake, IV 550 300 Intake, Oral 0 880 Number 0 0 Bowel Movements Output, Urine 400 550 Physical Exam General Appearance: well developed/nourished, alert, awake, mild distress Head: atraumatic, normal appearance Eyes: Bilateral: normal appearance, PERRL. Ears, Nose, Throat: normal pharynx, normal ENT inspection Neck: normal inspection, supple Respiratory: normal breath sounds, chest non-tender, no respiratory distress Cardiovascular: regular rate/rhythm Peripheral Pulses: 2+ radial (R), 2+ radial (L) Gastrointestinal: tenderness in the RUQ present. normal bowel sounds Extremities: normal inspection, normal capillary refill, normal range of motion Results Last 24 Hrs of Lab Results: Laboratory Tests 11/10/17 0355: Anion Gap 3 L, Estimated GFR > 60, Glucose 80, Calcium 7.7 L, Phosphorus 3.3, Magnesium 1.9, Total Bilirubin 0.6, Direct Bilirubin 0.5 H, AST 69 H, ALT 97 H, Alkaline Phosphatase 212 H, Total Protein 5.0 L, Albumin 2.5 L, CBC w Diff NO MAN DIFF REQ, RBC 2.70 L, MCV 93.0, MCH 30.8, MCHC 33.1, RDW 14.1, MPV 7.9, Gran % 72.9, Lymphocytes % 16.9 L, Monocytes % 8.9, Eosinophils % 1.2, Basophils % 0.1, Absolute Granulocytes 4.7, Absolute Lymphocytes 1.1 L, Absolute Monocytes 0.6, Absolute Eosinophils 0.1, Absolute Basophils 0 11/09/17 2145: Anion Gap 8, Estimated GFR > 60, Glucose 140 H, Calcium 8.0 L, Phosphorus 2.1 L, Magnesium 1.9, Total Bilirubin 0.6, AST 77 H, ALT 103 H, Albumin 2.6 L, CBC w Diff NO MAN DIFF REQ, RBC 2.75 L, MCV 93.0, MCH 31.1 H, MCHC 33.5, RDW 14.3, MPV 8.3, Gran % 80.1 H, Lymphocytes % 13.6 L, Monocytes % 5.3, Eosinophils % 0.6, Basophils % 0.4, Absolute Granulocytes 5.5, Absolute Lymphocytes 0.9 L, Absolute Monocytes 0.4, Absolute Eosinophils 0, Absolute Basophils 0 11/09/17 1540: CBC w Diff NO MAN DIFF REQ, RBC 2.85 L, MCV 93.0, MCH 31.1 H, MCHC 33.4, RDW 13.9, MPV 7.7, Gran % 72.6, Lymphocytes % 16.8 L, Monocytes % 9.6 H, Eosinophils % 0.7, Basophils % 0.3, Absolute Granulocytes 5.1, Absolute Lymphocytes 1.2, Absolute Monocytes 0.7 H, Absolute Eosinophils 0.1, Absolute Basophils 0 11/09/17 1525: Anion Gap 5, Estimated GFR > 60, Glucose 75, Lactic Acid 0.6 L, Calcium 8.0 L, Phosphorus 2.8, Magnesium 1.9, Total Bilirubin 0.9, AST 93 H, ALT 117 H, Albumin 2.6 L 11/09/17 1212: Urinalysis LIGHT H, Urine Color YEL, Urine Clarity CLEAR, Urine pH 6.0, Ur Specific [place] <= 1.005, Urine Protein NEG, Urine Ketones NEG, Urine Nitrite NEG, Urine Bilirubin NEG, Urine Urobilinogen 0.2, Ur Leukocyte Esterase NEG, Ur Microscopic SEDIMENT EXAMINED, Urine RBC RARE, Ur Epithelial Cells RARE, Urine Hemoglobin SMALL H, Urine Glucose NEG 11/09/17 1045: Total Bilirubin 1.0, Direct Bilirubin 0.7 H, AST 102 H, ALT 119 H, Alkaline Phosphatase 181 H, Total Protein 5.0 L, Albumin 2.5 L, PT 14.6 H, INR 1.34 H, APTT 24 L 11/09/17 1038: APTT Cancelled Impression/Plan Impression/Plan Impression/Plan: 1. Acute cholecystitis, will require intervention today.. 2. Sepsis secondary to acute cholecystitis. 3. Positive troponin likely related to demand ischemia and sepsis. 4. History of heart failure with reduced ejection fraction, last EF 30-35%. 5. History of pacemaker with possible ICD. 6. Anemia, without evidence of active bleeding. Recommendations: * I discussed the case with GI and interventional radiology as well as surgery. As per the general surgery team, the patient is at high risk for complications in the setting of surgical intervention due to her comorbidities. As per GI, the patient has acute cholecystitis and requires intervention despite being on Plavix. As per IR, they will proceed with the procedure with the understanding that bleeding complications exist. * Continue NS at 50 mL/h. Stop IV fluids after the procedure. Avoid volume overload. * Carvedilol to continue per cardiology. * Strict I's and O's, Hoang catheter. * Follow-up pancultures. * Continue empiric antibiotics - Unasyn. * Analgesia and antiemetics as needed. * Give IV Tylenol as needed for headache - first dose now. * Coreg being held due to hypotension. * Continue current medications. * DVT prophylaxis at all times. * The patient is critically ill and continues to require close monitoring. Will follow in the CRCU.
--- NOTE | 2017-11-10 11:56 | PN- Cardiology ---
Subjective Subjective: The patient continues to complain of abdominal discomfort. She is status post cholecystostomy tube placement. No chest pain. No palpitations. No diaphoresis. Objective Vital Signs and I&Os Vital Signs Date Time Temp Pulse Resp B/P B/P Pulse O2 O2 Flow FiO2 Mean Ox Delivery Rate 11/10 1600 97 Nasal 2.0L Cannula 11/10 1600 97.4 60 26 118/62 97 Nasal 2.0L Cannula 11/10 1207 97 Nasal 2.0L Cannula 11/10 08 94 Nasal 2.0L Cannula 11/10 08 98.0 78 28 123/52 94 Nasal 2.0L Cannula 11/10 0400 98 Nasal 2.0L Cannula 11/10 0000 98.7 66 20 100/64 98 Nasal 2.0L Cannula 11/09 2000 95 Nasal 2.0L Cannula Intake & Output 11/10 1600 11/10 0800 08/ 0000 11/09 1600 11/09 0800 11/09 0000 Intake Total 2339 862 9154 1180 561 500 Output Total 370 056 668 9469 300 Balance 810 150 630 130 261 500 Intake, IV 700 408 869 8779 561 500 Intake, Oral 480 0 880 180 0 Number 0 0 0 Bowel Movements Output, Other 20 Output, Urine 350 710 210 0085 300 Patient 143 lb 143 lb Weight Weight Bed scale Measurement Method Physical Exam: Gen: The patient is in no acute distress HEENT: Normal nose, ears, and oropharynx. Pupils equal bilaterally. Conjunctiva normal. Neck: Supple with no JVD, no masses, and no thyromegaly Lungs: Clear to auscultation with normal respiratory effort Heart: RRR, S1, S2, 2/6 systolic murmur. No peripheral edema, 2+ pulses in the lower extremities bilaterally Abdomen: Soft, diffusely tender, no masses. No hepatomegaly. No splenomegaly Extremities: No clubbing or cyanosis. Normal muscle strength in the upper and lower extremities Skin: Normal skin turgor with no skin ulcers or lesions noted. Neuro: Cranial nerves intact. Sensation intact Current Medications: Current Medications Sig/Richa Start time Last Medication Dose Route Stop Time Status Admin Acetaminophen 1,000 MG ONCE ONE 11/11 799 CAN N/A 1 UNIT IV 11/10 08 Acetaminophen 650 MG Q6P PRN 11/09 001 AC PO Acetaminophen 1,000 MG Q6 PRN 08/05 0015 AC 11/10 IV 1401 Alprazolam 1 MG TID PRN 11/09 0030 AC 11/09 PO 11/16 0029 2138 Ampicillin Sodium/ 3,000 MG Q6 11/09 1200 AC 11/10 Sulbactam Sodium IV 1717 Sodium Chloride 100 ML Atorvastatin Calcium 80 MG 1700 11/09 1700 AC 11/10 PO 1717 Carvedilol 6.25 MG BID 11/09 0900 AC 11/10 PO 0819 Dextrose/Sodium 1,000 ML ONCE ONE 11/10 0245 DC 11/10 Chloride IV 11/10 2244 0245 Fentanyl Citrate 0 .STK-MED ONE 11/10 1053 DC .ROUTE Lidocaine 1 ML .STK-MED ONE 11/10 1130 DC ID 11/10 1131 Midazolam HCl 0 .STK-MED ONE 11/10 1053 DC .ROUTE Omeprazole 40 MG DAILY AC 11/09 07 AC PO Ondansetron HCl 4 MG Q8P PRN 11/09 0015 AC IV Oxycodone/ 0 .STK-MED ONE 11/10 1718 DC Acetaminophen PO Oxycodone/ 1 TAB ONCE ONE 11/10 1715 DC 11/10 Acetaminophen PO 11/10 1716 1717 Potassium Chloride 10 MEQ Q1H 11/10 0100 DC 11/10 IV 11/10 0201 0200 Quetiapine Fumarate 25 MG DAILY 11/09 09 AC 11/10 PO 0819 Sodium Chloride 250 ML .Q5H 11/09 1615 DC 11/09 IV 11/09 2114 1854 Sodium Chloride 1,000 ML Q20H 11/09 0530 DC 11/09 IV 11/10 0129 0546 Venlafaxine HCl 150 MG DAILY 11/09 09 AC 11/10 PO 0819 Results Last 48 Hrs of Labs/Mics: Laboratory Tests 11/10/17 1110: Fluid WBC 7871 H, Fld Total RBCs Counted 2426 H 11/10/17 1110: [facility] [place] Hematology Test , Fluid Albumin < 1.0, Fluid Cholesterol < 50 11/10/17 0355: Anion Gap 3 L, Estimated GFR > 60, Glucose 80, Calcium 7.7 L, Phosphorus 3.3, Magnesium 1.9, Total Bilirubin 0.6, Direct Bilirubin 0.5 H, AST 69 H, ALT 97 H, Alkaline Phosphatase 212 H, Total Protein 5.0 L, Albumin 2.5 L, CBC w Diff NO MAN DIFF REQ, RBC 2.70 L, MCV 93.0, MCH 30.8, MCHC 33.1, RDW 14.1, MPV 7.9, Gran % 72.9, Lymphocytes % 16.9 L, Monocytes % 8.9, Eosinophils % 1.2, Basophils % 0.1, Absolute Granulocytes 4.7, Absolute Lymphocytes 1.1 L, Absolute Monocytes 0.6, Absolute Eosinophils 0.1, Absolute Basophils 0 11/09/17 2145: Anion Gap 8, Estimated GFR > 60, Glucose 140 H, Calcium 8.0 L, Phosphorus 2.1 L, Magnesium 1.9, Total Bilirubin 0.6, AST 77 H, ALT 103 H, Albumin 2.6 L, CBC w Diff NO MAN DIFF REQ, RBC 2.75 L, MCV 93.0, MCH 31.1 H, MCHC 33.5, RDW 14.3, MPV 8.3, Gran % 80.1 H, Lymphocytes % 13.6 L, Monocytes % 5.3, Eosinophils % 0.6, Basophils % 0.4, Absolute Granulocytes 5.5, Absolute Lymphocytes 0.9 L, Absolute Monocytes 0.4, Absolute Eosinophils 0, Absolute Basophils 0 11/09/17 1540: CBC w Diff NO MAN DIFF REQ, RBC 2.85 L, MCV 93.0, MCH 31.1 H, MCHC 33.4, RDW 13.9, MPV 7.7, Gran % 72.6, Lymphocytes % 16.8 L, Monocytes % 9.6 H, Eosinophils % 0.7, Basophils % 0.3, Absolute Granulocytes 5.1, Absolute Lymphocytes 1.2, Absolute Monocytes 0.7 H, Absolute Eosinophils 0.1, Absolute Basophils 0 11/09/17 1525: Anion Gap 5, Estimated GFR > 60, Glucose 75, Lactic Acid 0.6 L, Calcium 8.0 L, Phosphorus 2.8, Magnesium 1.9, Total Bilirubin 0.9, AST 93 H, ALT 117 H, Albumin 2.6 L 11/09/17 1212: Urinalysis LIGHT H, Urine Color YEL, Urine Clarity CLEAR, Urine pH 6.0, Ur Specific [place] <= 1.005, Urine Protein NEG, Urine Ketones NEG, Urine Nitrite NEG, Urine Bilirubin NEG, Urine Urobilinogen 0.2, Ur Leukocyte Esterase NEG, Ur Microscopic SEDIMENT EXAMINED, Urine RBC RARE, Ur Epithelial Cells RARE, Urine Hemoglobin SMALL H, Urine Glucose NEG 11/09/17 1045: Total Bilirubin 1.0, Direct Bilirubin 0.7 H, AST 102 H, ALT 119 H, Alkaline Phosphatase 181 H, Total Protein 5.0 L, Albumin 2.5 L, PT 14.6 H, INR 1.34 H, APTT 24 L 11/09/17 1038: APTT Cancelled 11/09/17 0550: Lactic Acid 0.6 L, Troponin I 0.08 11/09/17 0440: Lactic Acid 0.5 L 11/09/17 0440: Anion Gap 7, Estimated GFR > 60, BUN/Creatinine Ratio 11.1, Total Bilirubin 1.3, Direct Bilirubin 0.9 H, AST 125 H, ALT 132 H, Alkaline Phosphatase 177 H, Troponin I 0.09, Total Protein 4.9 L, Albumin 2.5 L, CBC w Diff NO MAN DIFF REQ, RBC 2.83 L, MCV 92.7, MCH 31.2 H, MCHC 33.7, RDW 14.1, MPV 7.7, Gran % 74.7, Lymphocytes % 15.2 L, Monocytes % 9.5 H, Eosinophils % 0.5, Basophils % 0.1, Absolute Granulocytes 6.0, Absolute Lymphocytes 1.2, Absolute Monocytes 0.8 H, Absolute Eosinophils 0, Absolute Basophils 0 11/09/17 0120: Lactic Acid 2.0 11/09/17 0004: Troponin I 0.10 11/09/17 0000: Troponin I Cancelled Microbiology 11/09 604 UPPER RESP: Surveillance Culture - COMP 11/09 604 GI: Surveillance Culture - COMP Recent Imaging Studies: Cardiac Cath 02/11/17: 1) ostial 80% PATEL stenosis treated with a 2.5x12mm MARGARITA post-dilated to 2.75mm proximally with an excellent result 2) non-critical proximal subclavian stenosis 3) aspirin and ticagrelor (can switch to plavix in AM with 300mg load), high potency statin. Echo 04/15/17 ~* Severely increased left ventricular cavity size. ~Severely decreased left ventricular systolic function. ~Normal left ventricle wall thickness. ~LVEF estimated by visual assessment was between 25-30%. ~LVEF calculated by biplane Noland's was 20%. ~Severe global hypokinesis. * Normal right ventricular cavity size and systolic function. Estimated right ventricular systolic pressure is 28 mmHg. * Aortic sclerosis without stenosis. * Mitral valve appears tethered. ~Severe mitral regurgitation. ~Systolic flow reversal in the pulmonary veins with mitral regurgitation present. ~EROA PISA is 0.38 cm2. Mitral regurgitant volume (PISA) is 69 ml. * Mild - moderate tricuspid regurgitation. * No evidence of pericardial effusion. * No prior study available for comparison. Assessment/Plan Assessment/Plan Assessment: 1. CAD, status post CABG. Status post stent placement in February. 2. Implanted defibrillator 3. Cholecystitis, status post cholecystostomy tube placement 3. Mild troponin elevation, secondary to demand ischemia plan: * Would restart aspirin and Plavix if possible recent drug eluting stent placement in February * Continue carvedilol Continue telemetry? Yes
[2017-11-10 16:00] VITALS: BP 118/62
--- NOTE | 2017-11-10 16:29 | ULTRASOUND REPORT ---
CLINICAL HISTORY: This patient is a 77-year-old female who presents to Interventional Radiology for placement of a cholecystostomy tube. The patient is currently on aspirin and Plavix which results in a high bleeding risk for percutaneous cholecystostomy tube placement, however, her primary team believes the tube is urgent and therefore the benefits of the tube outweigh the bleeding risks. This was discussed with the patient at length. PROCEDURES: 1. Limited sonogram of the right upper abdominal quadrant. 2. Placement of an 8.5 Fr locking all-purpose drainage catheter into the gallbladder. PHYSICIAN: Devin Burns M.D. MONITORING: The procedure was performed with conscious sedation and analgesia under my direct supervision. Continuous blood pressure, pulse oximetry as well as heartrate monitoring was performed by an independent registered nurse. Physician intraservice sedation time was 5 minutes. MEDICATIONS: 1. 0.5 mg of Versed and 25 micrograms of fentanyl were administered. 2. 10 mL of 1% lidocaine SQ. COMPLICATIONS: [<None>] ESTIMATED BLOOD LOSS: < 5 mL SPECIMENS: Culture CONTRAST: None required PROCEDURE DETAILS: Informed consent was obtained from the patient prior to the procedure. During this process, the procedure and potential alternatives were explained along with the intended outcome and benefits. The risks of the procedure, including the possibility of an unsuccessful procedure, as well as the risk of not doing the procedure, were discussed. The bleeding risk was emphasized. The patient was given the opportunity to ask questions regarding the procedure and appeared competent to make decisions. A signed consent form documenting this discussion was placed in the medical record. The patient was brought to the procedure room and placed supine on the fluoroscopy table. A time out was performed. Prior to prepping the patient, a limited sonogram of the right upper quadrant was performed to localize the gallbladder and chose an appropriate access. The right upper abdomen was prepped and draped in usual sterile fashion. The skin and subcutaneous tissues were anesthetized with Lidocaine. Under direct ultrasound guidance, an 8.5 Kisw[place]ili Fenton-Soto catheter was advanced trocar style via a transhepatic route into the gallbladder. Once the tip was within the gallbladder lumen, the metal trocar was stabilized and the plastic catheter advanced further into the gallbladder. The metal trocar was removed and the distal pigtail was formed and locked into place. The drain was sutured to skin with 2-0 silk suture. A StatLock and sterile dressing were placed. Bile sample sent for culture. FINDINGS: 1. Mildly distended gallbladder without gallbladder wall thickening and gallstones. 2. Aspiration of thick brown fluid. 3. Placement of 8.5 Kiswahili pigtail catheter. IMPRESSION: Successful placement of an8.5 Fr cholecystostomy catheter. PLAN: -The patient was stable after the procedure and was transferred back to the floor with verbal and written instructions. -The tube should be open to external gravity drainage via drainage bag. -The tube should be flushed twice daily with 10 mL normal saline. -The drain needs to remain in place for at least 6 weeks to give time for the tract to mature.
[2017-11-11] VITALS: BP 116/50
[2017-11-11 05:12] LABS: ABSOLUTE BASOPHIL COUNT 0 /CUMM (0.0-0.2); ABSOLUTE EOSINOPHIL COUNT 0.1 /CUMM (0.0-0.7); ABSOLUTE GRANULOCYTE CT 4.7 /CUMM (1.4-6.5); ABSOLUTE LYMPH COUNT 1.1 /CUMM (1.2-3.4); ABSOLUTE MONOCYTE COUNT 0.6 /CUMM (0.10-0.60); BASOPHIL % 0.2 % (0.0-2.0); EOSINOPHIL % 1.1 % (0-5); GRANULOCYTE % 72.4 % (42.2-75.2); HEMATOCRIT 26.1 % (37-47); MEAN CORPUSCULAR HGB 30.8 PG (27.0-31.0); MEAN CORPUSCULAR HGB CONC 32.8 G/DL (33.0-37.0); MEAN CORPUSCULAR VOLUME 93.8 FL (81.0-99.0); MEAN PLATELET VOLUME 7.9 FL (7.4-10.4); PLATELET COUNT 167 /CUMM (130-400); RBC DISTRIBUTION WIDTH 14.5 % (11.5-14.5); RED BLOOD CELL CT 2.78 /CUMM (4.20-5.40); WHITE BLOOD CELL COUNT 6.5 /CUMM (4.8-10.8)
--- NOTE | 2017-11-11 07:13 | PN- Resident CRCU ---
Tika GRESHAM,[place] 11/11/17 0713: Objective Vital Signs & I&O Last 8 Hrs of Vitals and I&O: Intake & Output 11/11 0800 Intake Total 560 Output Total 600 Balance -40 Intake, IV 360 Intake, Oral 200 Output, 50 Drainage Output, Urine 550 Impression/Plan Plan DVT/Prophylaxis: zoe Chavez MD,Elen 11/11/17 1523: Subjective HPI/CRCU Issues: 1. Acute cholecystitis, will require cholecystostomy 2. Possible acute cholangitis. 3. Sepsis secondary to acute cholecystitis. 4. History of heart failure with reduced ejection fraction, last EF 30-35%. 5. Positive troponin likely related to demand ischemia. 24 Hour Events: Patient sitting comfortably in bed no overnight events, however she complains of intermittent abdominal pain at the site of insertion of the cholecystostomy tube. vital signs stable, body fluid culture grew gram-negative rods, blood culture is negative Objective Vital Signs & I&O Last 8 Hrs of Vitals and I&O: Intake & Output 11/11 1600 Intake Total 740 Output Total 870 Balance -130 Intake, IV 100 Intake, Oral 640 Number 1 Bowel Movements Output, Other 30 Output, Urine 840 Exam General Appearance: alert, awake Head: atraumatic, normal appearance Respiratory: normal breath sounds, chest non-tender Cardiovascular: regular rate/rhythm Gastrointestinal: normal bowel sounds, soft, cholecystomy tube in place, adequate drainage of 50 CC, no signs of bleeding around. Extremities: normal inspection, no edema Skin: intact, normal color Current Medications: Current Medications Sig/Richa Start time Last Medication Dose Route Stop Time Status Admin Acetaminophen 650 MG Q6P PRN 11/09 0015 AC PO Acetaminophen 1,000 MG Q6 PRN 11/09 0015 AC 11/11 IV 0724 Alprazolam 1 MG TID PRN 11/09 0030 AC 11/10 PO 11/16 0029 2042 Ampicillin Sodium/ 3,000 MG Q6 11/09 1200 AC 11/11 Sulbactam Sodium IV 1145 Sodium Chloride 100 ML Aspirin Buffered 81 MG DAILY 11/11 1430 AC PO Atorvastatin Calcium 80 MG 1700 11/09 1700 AC 11/10 PO 1717 Carvedilol 6.25 MG BID 11/09 0900 AC 11/11 PO 0938 Clopidogrel Bisulfate 75 MG DAILY 11/11 1415 AC PO Heparin Sodium 5,000 UNIT Q8 11/11 1548 UNVr (Porcine) SC Omeprazole 40 MG DAILY AC 11/09 0700 AC 11/11 PO 0634 Ondansetron HCl 4 MG Q8P PRN 11/09 0015 AC IV Oxycodone HCl 0 .STK-MED ONE 11/11 0918 DC PO Oxycodone HCl 5 MG Q4 PRN 11/11 0915 AC 11/11 PO 1338 Oxycodone/ 0 .STK-MED ONE 11/10 1718 DC Acetaminophen PO Oxycodone/ 1 TAB ONCE ONE 11/10 1715 DC 11/10 Acetaminophen PO 11/10 1716 1717 Quetiapine Fumarate 25 MG DAILY 11/09 899 AC 11/11 PO 0938 Venlafaxine HCl 150 MG DAILY 11/09 899 AC 11/11 PO 0938 Impression/Plan Impression/Problem List Impression: 77-year-old female with PMH of pyloric stenosis, CAD status post stenting in 2006, CABG in 2002, AICD status post pacemaker for left bundle branch block, achalasia status post Botox, HFR EF (EF 30-35%), and hypertension. The patient was admitted with complaints of abdominal pain, nausea and vomiting for 2 days. She had greater than 20 episodes of nonbloody vomitus. In the ED, the patient was found to be afebrile, and hypotensive noting her blood pressure improved with IV fluids. The patient had an elevated white blood cell count of 13.5 with a left shift and a lactic acid of 2.0. She had mild transaminitis as well. A CT of the abdomen and pelvis demonstrated gallbladder wall thickening and mild intra-and extrahepatic biliary ductal dilatation. There is also mild inflammation along the right flank and fluid tracking to the right lower quadrant. Findings were thought to reflect acute cholecystitis. Patient had cholecystostomy tube placed yesterday, it is draining adequate amount. Patient is currently afebrile and her liver function trended down, which make contrast study through the cholecystostomy tube not urgent at this point Impression: 1. Acute cholecystitis S/P cholecystostomy tube: Body fluid culture growing gram-negative rods, liver function trending down 2. Sepsis secondary to acute cholecystitis. 3. History of CAD S/P CABG, heart failure with reduced ejection fraction, last EF 30-35%S/P defibilator 4.Positive troponin due to demand ischemia and sepsis 5. Positive troponin likely related to demand ischemia. 6. Anemia Plan: * Continue IV Unasyn , can change to by mouth in the next 48 hours * Management of cholecystostomy tube Per IR * Restart aspirin and Plavix (discussed with IR) * Follow-up pancultures * IV Tylenol PRN for pain * P.o. omeprazole 40 mg daily * Start oxycodone 5 mg every 4 as needed for pain * Continue current medications. * DVT prophylaxis at all times. * Continue to monitor in ICU * DC Hoang cath * Continue to monitor CBCs and ICU bundle * Strict I's and O's, Hoang catheter. * Cardiology and GI recommendation appreciated * Monitor LFT daily * She was downgraded to telemetry today Full code Heart healthy diet DVT prophylaxis with subcutaneous heparin and Alps Problem List: 1. Cholecystitis 2. Sepsis Pain Ratin Tomorrow's Labs & Rationales: CBC ICU bundle
[2017-11-11 08:00] VITALS: BP 114/48
--- NOTE | 2017-11-11 08:09 | PN- CRCU ---
Subjective HPI/Critical Care Issues: The patient is awake and alert. She reports feeling better overall. She does however have pain at the tube insertion site in the abdomen. She denies any chest pain, chest pressure or increased shortness of breath. Biliary fluid is positive for gram-negative rods. She remains afebrile, on Unasyn. Objective Current Medications: Current Medications Sig/Richa Start time Last Medication Dose Route Stop Time Status Admin Acetaminophen 650 MG Q6P PRN 11/09 0015 AC PO Acetaminophen 1,000 MG Q6 PRN 11/09 0015 AC 11/11 IV 0724 Alprazolam 1 MG TID PRN 11/09 0030 AC 11/10 PO 11/16 0029 2042 Ampicillin Sodium/ 3,000 MG Q6 11/09 1200 AC 11/11 Sulbactam Sodium IV 0635 Sodium Chloride 100 ML Atorvastatin Calcium 80 MG 1700 11/09 1700 AC 11/10 PO 1717 Carvedilol 6.25 MG BID 11/09 09 AC 11/10 PO 2042 Dextrose/Sodium 1,000 ML ONCE ONE 11/10 0245 DC 11/10 Chloride IV 11/10 2244 0245 Fentanyl Citrate 0 .STK-MED ONE 11/10 1053 DC .ROUTE Lidocaine 1 ML .STK-MED ONE 11/10 1130 DC ID 11/10 1131 Midazolam HCl 0 .STK-MED ONE 11/10 1053 DC .ROUTE Omeprazole 40 MG DAILY AC 11/09 699 AC 11/11 PO 0634 Ondansetron HCl 4 MG Q8P PRN 11/09 0015 AC IV Oxycodone/ 0 .STK-MED ONE 11/10 1718 DC Acetaminophen PO Oxycodone/ 1 TAB ONCE ONE 11/10 1715 DC 11/10 Acetaminophen PO 11/10 1716 1717 Quetiapine Fumarate 25 MG DAILY 11/09 899 AC 11/10 PO 0819 Venlafaxine HCl 150 MG DAILY 11/09 899 AC 11/10 PO 0819 Vital Signs & I&O Last 24 Hrs of Vitals and I&O: Vital Signs Date Time Temp Pulse Resp B/P B/P Pulse O2 O2 Flow FiO2 Mean Ox Delivery Rate 11/11 0400 95 Nasal 2.0L Cannula 11/11 0000 97 Nasal 2.0L Cannula 11/11 0000 98.1 80 26 116/50 97 Nasal 2.0L Cannula 11/10 2042 66 106/66 11/11 1999 97 Nasal 2.0L Cannula 11/10 1600 97 Nasal 2.0L Cannula 11/10 1600 97.4 60 26 118/62 97 Nasal 2.0L Cannula 11/10 1207 97 Nasal 2.0L Cannula Intake & Output 11/11 1600 11/11 0800 08 0000 Intake Total 560 460 Output Total 600 395 Balance -40 65 Intake, IV 360 100 Intake, Oral 200 360 Output, 50 25 Drainage Output, Urine 550 370 Patient 149 lb Weight Weight Bed scale Measurement Method Physical Exam General Appearance: well developed/nourished, alert, awake, comfortable Head: atraumatic, normal appearance Eyes: Bilateral: normal appearance, PERRL. Neck: supple Respiratory: normal breath sounds, chest non-tender, no respiratory distress Cardiovascular: regular rate/rhythm Gastrointestinal: tenderness in the RUQ, dressing/tube in place normal bowel sounds Extremities: normal inspection, normal capillary refill, no edema Results Last 24 Hrs of Lab Results: Laboratory Tests 11/11/17 0425: Anion Gap 5, Estimated GFR > 60, Glucose 100 H, Calcium 7.9 L, Phosphorus 3.4, Magnesium 2.0, Total Bilirubin 0.5, AST 54 H, ALT 87 H, Albumin 2.5 L, CBC w Diff NO MAN DIFF REQ, RBC 2.78 L, MCV 93.8, MCH 30.8, MCHC 32.8 L, RDW 14.5, MPV 7.9, Gran % 72.4, Lymphocytes % 16.8 L, Monocytes % 9.5 H, Eosinophils % 1.1, Basophils % 0.2, Absolute Granulocytes 4.7, Absolute Lymphocytes 1.1 L, Absolute Monocytes 0.6, Absolute Eosinophils 0.1, Absolute Basophils 0 11/10/17 1110: Fluid WBC 7871 H, Fld Total RBCs Counted 2426 H 11/10/17 1110: Misc Hematology Test , Fluid Albumin < 1.0, Fluid Cholesterol < 50 Impression/Plan Impression/Plan Impression/Plan: 1. Acute cholecystitis, s/p cholecystostomy tube placement on 11/10/2017. 2. Sepsis, gram-negative rods growing in biliary fluid, afebrile and Unasyn. 3. Positive troponin secondary to demand ischemia and sepsis. 4. History of heart failure with reduced ejection fraction, last EF 30-35%. 5. History of pacemaker with possible ICD. 6. CAD status post stent placement in February 2017, on Plavix. 7. Anemia, without evidence of active bleeding. 8. GERD. Recommendations: * Carvedilol, aspirin and Plavix as per cardiology. * Oxycodone 5 mg every 4 hours as needed for pain. * Continue IV Tylenol for pain as well. * Discontinue Hoang catheter. * Follow-up culture data. * Continue empiric antibiotics -Unasyn. * Continue all current medications. * Continue current medications. * DVT prophylaxis at all times. * Downgrade to telemetry.
--- NOTE | 2017-11-11 13:43 | PN- Gastroenterology ---
Assessment/Plan GI Assessment/Recommendations: Assessment: Ms. Tobar is a 77 year old female with CHF/CAD with defibrillator and an EF-20% who was admitted this past Friday with cholecystitis for which a cholecystomy tube was placed yesterday. She was noted to have dilated bile ducts on imaging, but as her bilirubin was only 1.3 at its peak and has since come down to 0.5 along with improvement in her transaminases I dont feel an ERCP is warranted at this time. It would be reasonable at some point to possibly do a contrast study through the cholecystostomy tube to rule out any filling defects in the CBD as an MRI is not able to be done secondary to her defibrillator, but as her LFTs are improving and she is afebrile and without symptoms of biliary obstruction I don't feel this is urgent and may not be absolutely necessary. Recommendations: 1. Continue IV abx through today and consider changing to PO abx in 24-48 hrs 2. Management of cholecystotomy tube as per IR 3. Follow daily LFts for now 4. Advance diet as tolerated. 5. PO PPI 6. Analgesia and antiemetics as needed I will continue to follow this patient and make further recommendations based on her clinical course and repet blood work. Subjective Subjective: Pt s/p uneventful placement of a cholecystomy tube yesterday. she complains of some discomfort around the insertion site, but otherwise she is feeling well having tolerated solids yesterday without any pain, regurgitation or vomiting. Objective Vital Signs and I&Os Vital Signs Date Time Temp Pulse Resp B/P B/P Pulse O2 O2 Flow FiO2 Mean Ox Delivery Rate 11/11 0938 79 124/48 11/11 0800 98.6 66 22 114/48 94 Room Air 11/11 0400 95 Nasal 2.0L Cannula 11/11 0000 97 Nasal 2.0L Cannula 11/11 0000 98.1 80 26 116/50 97 Nasal 2.0L Cannula 11/10 2042 66 106/66 11/11 1999 97 Nasal 2.0L Cannula 11/10 1600 97 Nasal 2.0L Cannula 11/10 1600 97.4 60 26 118/62 97 Nasal 2.0L Cannula Intake & Output 11/11 1600 08/07 0400 08 1600 11/10 0400 11/09 040 Intake Total 006 161 8785 1180 1741 500 Output Total 600 395 029 154 3181 Balance -40 65 960 630 391 500 Intake, IV 297 270 9828 300 1561 500 Intake, Oral 200 360 480 880 180 Number 0 0 0 Bowel Movements Output, 50 25 Drainage Output, Other 20 Output, Urine 550 370 364 771 4743 Patient 149 lb 143 lb 143 lb 120 lb Weight Weight Bed scale Bed scale Reported by Patient Measurement Method Physical Exam General Appearance: no apparent distress, comfortable Head: atraumatic Neck: supple Respiratory: normal breath sounds, chest non-tender, no respiratory distress Cardiovascular: regular rate/rhythm Abdomen: normal bowel sounds, soft, tenderness, tenderness in RUQ and around cholecystomy tube which was c/d/i and draining dark bile Extremities: normal inspection, no edema Current Medications: Current Medications Sig/Richa Start time Last Medication Dose Route Stop Time Status Admin Acetaminophen 650 MG Q6P PRN 11/09 0015 AC PO Acetaminophen 1,000 MG Q6 PRN 11/09 0015 AC 11/11 IV 0724 Alprazolam 1 MG TID PRN 11/09 0030 AC 11/10 PO 11/16 0029 2042 Ampicillin Sodium/ 3,000 MG Q6 11/09 1200 AC 11/11 Sulbactam Sodium IV 1145 Sodium Chloride 100 ML Atorvastatin Calcium 80 MG 1700 11/09 1700 AC 11/10 PO 1717 Carvedilol 6.25 MG BID 11/09 899 AC 11/11 PO 0938 Omeprazole 40 MG DAILY AC 11/09 699 AC 11/11 PO 0634 Ondansetron HCl 4 MG Q8P PRN 11/09 0015 AC IV Oxycodone HCl 0 .STK-MED ONE 11/11 917 DC PO Oxycodone HCl 5 MG Q4 PRN 11/11 0915 AC 11/11 PO 0939 Oxycodone/ 0 .STK-MED ONE 11/10 1717 DC Acetaminophen PO Oxycodone/ 1 TAB ONCE ONE 11/10 1714 DC 11/10 Acetaminophen PO 11/10 1716 1717 Quetiapine Fumarate 25 MG DAILY 11/09 899 AC 11/11 PO 0938 Venlafaxine HCl 150 MG DAILY 11/09 899 AC 11/11 PO 0938 Results Pertinent Lab Results: Laboratory Tests 11/11 11/10 11/10 0425 1110 1110 Chemistry Sodium (137 - 145 mmol/L) 137 Potassium (3.5 - 5.1 mmol/L) 3.7 Chloride (98 - 107 mmol/L) 109 H Carbon Dioxide (22 - 30 mmol/L) 23 Anion Gap (5 - 16) 5 BUN (7 - 17 mg/dL) 8 Creatinine (0.5 - 1.0 mg/dL) 0.8 Estimated GFR (>60 ml/min) > 60 Glucose (65 - 99 mg/dL) 100 H Calcium (8.4 - 10.2 mg/dL) 7.9 L Phosphorus (2.5 - 4.5 mg/dL) 3.4 Magnesium (1.6 - 2.3 mg/dL) 2.0 Total Bilirubin (0.2 - 1.3 mg/dL) 0.5 AST (14 - 36 U/L) 54 H ALT (9 - 52 U/L) 87 H Albumin (3.5 - 5.0 g/dL) 2.5 L Hematology CBC w Diff NO MAN DIFF REQ WBC (4.8 - 10.8 /CUMM) 6.5 RBC (4.20 - 5.40 /CUMM) 2.78 L Hgb (12.0 - 16.0 G/DL) 8.6 L Hct (37 - 47 %) 26.1 L MCV (81.0 - 99.0 FL) 93.8 MCH (27.0 - 31.0 PG) 30.8 MCHC (33.0 - 37.0 G/DL) 32.8 L RDW (11.5 - 14.5 %) 14.5 Plt Count (130 - 400 /CUMM) 167 MPV (7.4 - 10.4 FL) 7.9 Gran % (42.2 - 75.2 %) 72.4 Lymphocytes % (20.5 - 51.1 %) 16.8 L Monocytes % (1.7 - 9.3 %) 9.5 H Eosinophils % (0 - 5 %) 1.1 Basophils % (0.0 - 2.0 %) 0.2 Absolute Granulocytes (1.4 - 6.5 /CUMM) 4.7 Absolute Lymphocytes (1.2 - 3.4 /CUMM) 1.1 L Absolute Monocytes (0.10 - 0.60 /CUMM) 0.6 Absolute Eosinophils (0.0 - 0.7 /CUMM) 0.1 Absolute Basophils (0.0 - 0.2 /CUMM) 0 Misc Hematology Test (%) Other Body Source Fluid WBC (0 - 5 /CUMM) 7871 H Fld Total RBCs Counted (0 /CUMM) 2426 H Fluid Albumin (g/dL) < 1.0 Fluid Cholesterol (mg/dL) < 50 08/06 08 0355 2145 Chemistry Sodium (137 - 145 mmol/L) 138 140 Potassium (3.5 - 5.1 mmol/L) 4.1 3.3 L Chloride (98 - 107 mmol/L) 112 H 110 H Carbon Dioxide (22 - 30 mmol/L) 23 22 Anion Gap (5 - 16) 3 L 8 BUN (7 - 17 mg/dL) 10 11 Creatinine (0.5 - 1.0 mg/dL) 0.8 0.8 Estimated GFR (>60 ml/min) > 60 > 60 Glucose (65 - 99 mg/dL) 80 140 H Calcium (8.4 - 10.2 mg/dL) 7.7 L 8.0 L Phosphorus (2.5 - 4.5 mg/dL) 3.3 2.1 L Magnesium (1.6 - 2.3 mg/dL) 1.9 1.9 Total Bilirubin (0.2 - 1.3 mg/dL) 0.6 0.6 Direct Bilirubin (< 0.4 mg/dL) 0.5 H AST (14 - 36 U/L) 69 H 77 H ALT (9 - 52 U/L) 97 H 103 H Alkaline Phosphatase (<127 U/L) 212 H Total Protein (6.3 - 8.2 g/dL) 5.0 L Albumin (3.5 - 5.0 g/dL) 2.5 L 2.6 L Hematology CBC w Diff NO MAN DIFF REQ NO MAN DIFF REQ WBC (4.8 - 10.8 /CUMM) 6.4 6.8 RBC (4.20 - 5.40 /CUMM) 2.70 L 2.75 L Hgb (12.0 - 16.0 G/DL) 8.3 L 8.6 L Hct (37 - 47 %) 25.1 L 25.6 L MCV (81.0 - 99.0 FL) 93.0 93.0 MCH (27.0 - 31.0 PG) 30.8 31.1 H MCHC (33.0 - 37.0 G/DL) 33.1 33.5 RDW (11.5 - 14.5 %) 14.1 14.3 Plt Count (130 - 400 /CUMM) 139 142 MPV (7.4 - 10.4 FL) 7.9 8.3 Gran % (42.2 - 75.2 %) 72.9 80.1 H Lymphocytes % (20.5 - 51.1 %) 16.9 L 13.6 L Monocytes % (1.7 - 9.3 %) 8.9 5.3 Eosinophils % (0 - 5 %) 1.2 0.6 Basophils % (0.0 - 2.0 %) 0.1 0.4 Absolute Granulocytes (1.4 - 6.5 /CUMM) 4.7 5.5 Absolute Lymphocytes (1.2 - 3.4 /CUMM) 1.1 L 0.9 L Absolute Monocytes (0.10 - 0.60 /CUMM) 0.6 0.4 Absolute Eosinophils (0.0 - 0.7 /CUMM) 0.1 0 Absolute Basophils (0.0 - 0.2 /CUMM) 0 0 08/05 08/05 1540 1525 Chemistry Sodium (137 - 145 mmol/L) 139 Potassium (3.5 - 5.1 mmol/L) 3.9 Chloride (98 - 107 mmol/L) 113 H Carbon Dioxide (22 - 30 mmol/L) 21 L Anion Gap (5 - 16) 5 BUN (7 - 17 mg/dL) 10 Creatinine (0.5 - 1.0 mg/dL) 0.9 Estimated GFR (>60 ml/min) > 60 Glucose (65 - 99 mg/dL) 75 Lactic Acid (0.7 - 2.1 mmol/L) 0.6 L Calcium (8.4 - 10.2 mg/dL) 8.0 L Phosphorus (2.5 - 4.5 mg/dL) 2.8 Magnesium (1.6 - 2.3 mg/dL) 1.9 Total Bilirubin (0.2 - 1.3 mg/dL) 0.9 AST (14 - 36 U/L) 93 H ALT (9 - 52 U/L) 117 H Albumin (3.5 - 5.0 g/dL) 2.6 L Hematology CBC w Diff NO MAN DIFF REQ WBC (4.8 - 10.8 /CUMM) 7.0 RBC (4.20 - 5.40 /CUMM) 2.85 L Hgb (12.0 - 16.0 G/DL) 8.9 L Hct (37 - 47 %) 26.5 L MCV (81.0 - 99.0 FL) 93.0 MCH (27.0 - 31.0 PG) 31.1 H MCHC (33.0 - 37.0 G/DL) 33.4 RDW (11.5 - 14.5 %) 13.9 Plt Count (130 - 400 /CUMM) 154 MPV (7.4 - 10.4 FL) 7.7 Gran % (42.2 - 75.2 %) 72.6 Lymphocytes % (20.5 - 51.1 %) 16.8 L Monocytes % (1.7 - 9.3 %) 9.6 H Eosinophils % (0 - 5 %) 0.7 Basophils % (0.0 - 2.0 %) 0.3 Absolute Granulocytes (1.4 - 6.5 /CUMM) 5.1 Absolute Lymphocytes (1.2 - 3.4 /CUMM) 1.2 Absolute Monocytes (0.10 - 0.60 /CUMM) 0.7 H Absolute Eosinophils (0.0 - 0.7 /CUMM) 0.1 Absolute Basophils (0.0 - 0.2 /CUMM) 0 11/09 11/09 11/09 1212 1045 1038 Chemistry Total Bilirubin (0.2 - 1.3 mg/dL) 1.0 Direct Bilirubin (< 0.4 mg/dL) 0.7 H AST (14 - 36 U/L) 102 H ALT (9 - 52 U/L) 119 H Alkaline Phosphatase (<127 U/L) 181 H Total Protein (6.3 - 8.2 g/dL) 5.0 L Albumin (3.5 - 5.0 g/dL) 2.5 L Coagulation PT (9.4 - 12.5 SEC) 14.6 H INR (0.90 - 1.19) 1.34 H APTT (25 - 37 SEC) 24 L Cancelled Urines Urinalysis LIGHT H Urine Color (YEL,AMB,STR) YEL Urine Clarity (CLEAR) CLEAR Urine pH (5.0 - 8.0) 6.0 Ur Specific Edwards (1.001 - 1.035) <= 1.005 Urine Protein (NEG,<30 MG/DL) NEG Urine Ketones (NEG) NEG Urine Nitrite (NEG) NEG Urine Bilirubin (NEG) NEG Urine Urobilinogen (0.1 - 1.0 EU/dl) 0.2 Ur Leukocyte Esterase (NEG) NEG Ur Microscopic SEDIMENT EXAMINED Urine RBC (0 - 5 /HPF) RARE Ur Epithelial Cells (NONE,FEW) RARE Urine Hemoglobin (NEG) SMALL H Urine Glucose (N MG/DL) NEG 11/09 11/09 11/09 11/09 0550 0440 0440 0120 Chemistry Sodium (137 - 145 mmol/L) 136 L Potassium (3.5 - 5.1 mmol/L) 3.9 Chloride (98 - 107 mmol/L) 108 H Carbon Dioxide (22 - 30 mmol/L) 21 L Anion Gap (5 - 16) 7 BUN (7 - 17 mg/dL) 10 Creatinine (0.5 - 1.0 mg/dL) 0.9 Estimated GFR (>60 ml/min) > 60 BUN/Creatinine Ratio (7 - 25 %) 11.1 Lactic Acid (0.7 - 2.1 mmol/L) 0.6 L 0.5 L 2.0 Total Bilirubin (0.2 - 1.3 mg/dL) 1.3 Direct Bilirubin (< 0.4 mg/dL) 0.9 H AST (14 - 36 U/L) 125 H ALT (9 - 52 U/L) 132 H Alkaline Phosphatase (<127 U/L) 177 H Troponin I (< 0.11 ng/ml) 0.08 0.09 Total Protein (6.3 - 8.2 g/dL) 4.9 L Albumin (3.5 - 5.0 g/dL) 2.5 L Hematology CBC w Diff NO MAN DIFF REQ WBC (4.8 - 10.8 /CUMM) 8.1 RBC (4.20 - 5.40 /CUMM) 2.83 L Hgb (12.0 - 16.0 G/DL) 8.8 L Hct (37 - 47 %) 26.3 L MCV (81.0 - 99.0 FL) 92.7 MCH (27.0 - 31.0 PG) 31.2 H MCHC (33.0 - 37.0 G/DL) 33.7 RDW (11.5 - 14.5 %) 14.1 Plt Count (130 - 400 /CUMM) 160 MPV (7.4 - 10.4 FL) 7.7 Gran % (42.2 - 75.2 %) 74.7 Lymphocytes % (20.5 - 51.1 %) 15.2 L Monocytes % (1.7 - 9.3 %) 9.5 H Eosinophils % (0 - 5 %) 0.5 Basophils % (0.0 - 2.0 %) 0.1 Absolute Granulocytes (1.4 - 6.5 /CUMM) 6.0 Absolute Lymphocytes (1.2 - 3.4 /CUMM) 1.2 Absolute Monocytes (0.10 - 0.60 /CUMM) 0.8 H Absolute Eosinophils (0.0 - 0.7 /CUMM) 0 Absolute Basophils (0.0 - 0.2 /CUMM) 0 11/09 11/09 11/08 11/08 0004 0000 1652 1355 Chemistry Troponin I (< 0.11 ng/ml) 0.10 Cancelled 0.12 *H 0.11 *H Imaging/Other Studies: SERVICE DATE: 11/10/17 EXAM TYPE: US - US-GUIDANCE CLINICAL HISTORY: This patient is a 77-year-old female who presents to Interventional Radiology for placement of a cholecystostomy tube. The patient is currently on aspirin and Plavix which results in a high bleeding risk for percutaneous cholecystostomy tube placement, however, her primary team believes the tube is urgent and therefore the benefits of the tube outweigh the bleeding risks. This was discussed with the patient at length. PROCEDURES: 1. Limited sonogram of the right upper abdominal quadrant. 2. Placement of an 8.5 Fr locking all-purpose drainage catheter into the gallbladder. PHYSICIAN: Devin Burns M.D. MONITORING: The procedure was performed with conscious sedation and analgesia under my direct supervision. Continuous blood pressure, pulse oximetry as well as heartrate monitoring was performed by an independent registered nurse. Physician intraservice sedation time was 5 minutes. MEDICATIONS: 1. 0.5 mg of Versed and 25 micrograms of fentanyl were administered. 2. 10 mL of 1% lidocaine SQ. COMPLICATIONS: [<None>] ESTIMATED BLOOD LOSS: < 5 mL SPECIMENS: Culture CONTRAST: None required PROCEDURE DETAILS: Informed consent was obtained from the patient prior to the procedure. During this process, the procedure and potential alternatives were explained along with the intended outcome and benefits. The risks of the procedure, including the possibility of an unsuccessful procedure, as well as the risk of not doing the procedure, were discussed. The bleeding risk was emphasized. The patient was given the opportunity to ask questions regarding the procedure and appeared competent to make decisions. A signed consent form documenting this discussion was placed in the medical record. The patient was brought to the procedure room and placed supine on the fluoroscopy table. A time out was performed. Prior to prepping the patient, a limited sonogram of the right upper quadrant was performed to localize the gallbladder and chose an appropriate access. The right upper abdomen was prepped and draped in usual sterile fashion. The skin and subcutaneous tissues were anesthetized with Lidocaine. Under direct ultrasound guidance, an 8.5 Faroese Fenton-Soto catheter was advanced trocar style via a transhepatic route into the gallbladder. Once the tip was within the gallbladder lumen, the metal trocar was stabilized and the plastic catheter advanced further into the gallbladder. The metal trocar was removed and the distal pigtail was formed and locked into place. The drain was sutured to skin with 2-0 silk suture. A StatLock and sterile dressing were placed. Bile sample sent for culture. FINDINGS: 1. Mildly distended gallbladder without gallbladder wall thickening and gallstones. 2. Aspiration of thick brown fluid. 3. Placement of 8.5 Faroese pigtail catheter. IMPRESSION: Successful placement of an8.5 Fr cholecystostomy catheter.
--- NOTE | 2017-11-11 14:56 | Transfer of Care Summary ---
Hospital Course Course Hospital Course: 77-year-old female with PMH of pyloric stenosis, CAD status post stenting in 2006, CABG in 2002, AICD status post pacemaker for left bundle branch block, achalasia status post Botox, HFR EF (EF 30-35%), and hypertension. The patient was admitted with complaints of abdominal pain, nausea and vomiting for 2 days. She had greater than 20 episodes of nonbloody vomitus. In the ED, the patient was found to be afebrile, and hypotensive noting her blood pressure improved with IV fluids. The patient had an elevated white blood cell count of 13.5 with a left shift and a lactic acid of 2.0. She had mild transaminitis as well. A CT of the abdomen and pelvis demonstrated gallbladder wall thickening and mild intra-and extrahepatic biliary ductal dilatation. There is also mild inflammation along the right flank and fluid tracking to the right lower quadrant. Findings were thought to reflect acute cholecystitis. The patient was pancultured and evaluated by general surgery and GI. The patient was transferred to the critical care unit after her blood pressure dropped once again requiring IV fluids. In the ICU she was hemodynamically stable, HIDA scan showed:activity within the duodenum which means that although she has CBD stone they are currently not obstructed, this also explains the improved bilirubin levels today. The patient was admitted to the ICU for treatment of the following conditions 1. Acute cholecystitis S/P cholecystostomy tube Patient had IR guided cholecystostomy tube placed for drainage, her bilirubin trended down as well as her liver function. Which make contrast study through the cholecystostomy tube not urgent at this point. The patient was noticed to have scant amount of brownishreddish discharge around the cholecystostomy tube. IR from [facility] were contacted, they think it is expected after such a procedure.She was initially treated with IV Unasyn, to be changed to p.o. according to culture sensitivity results. In addition her pain was treated with PRN Percocet every 4h Culture from cholecystostomy tube showed gram-negative rods, will follow up on culture sensitivity. - Body fluid culture growing gram-negative rods, will follow up on culture senstivity 2. Sepsis secondary to acute cholecystitis- Resolved 3. History of CAD S/P CABG, heart failure with reduced ejection fraction, last EF 30-35%S/P defibilator: Initially her aspirin Plavix were held and we are continued after placement of the cholecystostomy tube 4.Positive troponin due to demand ischemia and sepsis 5. Chronic anemia: H&H were stable Full code Heart healthy diet DVT prophylaxis with subcutaneous heparin and Alps Assessment/Plan: Please see above Attending MD Review Statement Documenting Attending: Shalom Watson MD
[2017-11-11 16:00] VITALS: BP 116/52
--- NOTE | 2017-11-11 18:02 | PN- Cardiology ---
Subjective Subjective: The patient complains of pain at site of her cholecystectomy 2. No chest pain. No palpitations. No shortness of breath. No diaphoresis. Objective Vital Signs and I&Os Vital Signs Date Time Temp Pulse Resp B/P B/P Pulse O2 O2 Flow FiO2 Mean Ox Delivery Rate 11/12 1599 99.6 75 21 116/52 94 Room Air 11/11 0938 79 124/48 11/11 08 98.6 66 22 114/48 94 Room Air 11/11 0400 95 Nasal 2.0L Cannula 11/11 0000 97 Nasal 2.0L Cannula 11/11 0000 98.1 80 26 116/50 97 Nasal 2.0L Cannula 11/10 2042 66 106/66 11/11 1999 97 Nasal 2.0L Cannula Intake & Output 11/11 0000 11/10 1600 11/10 0000 Intake Total 740 967 511 1385 550 1180 Output Total 870 600 395 370 400 550 Balance -130 -40 65 810 150 630 Intake, IV 100 360 100 700 550 300 Intake, Oral 640 200 360 480 0 880 Number 1 0 0 Bowel Movements Output, 50 25 Drainage Output, Other 30 20 Output, Urine 840 550 370 350 400 550 Patient 149 lb 143 lb Weight Weight Bed scale Measurement Method Physical Exam: Gen: The patient is in no acute distress HEENT: Normal nose, ears, and oropharynx. Pupils equal bilaterally. Conjunctiva normal. Neck: Supple with no JVD, no masses, and no thyromegaly Lungs: Clear to auscultation with normal respiratory effort Heart: RRR, S1, S2, 2/6 systolic murmur. No peripheral edema, 2+ pulses in the lower extremities bilaterally Abdomen: Soft, diffusely tender, no masses. No hepatomegaly. No splenomegaly Extremities: No clubbing or cyanosis. Normal muscle strength in the upper and lower extremities Skin: Normal skin turgor with no skin ulcers or lesions noted. Neuro: Cranial nerves intact. Sensation intact Current Medications: Current Medications Sig/Richa Start time Last Medication Dose Route Stop Time Status Admin Acetaminophen 650 MG Q6P PRN 11/09 0015 AC PO Acetaminophen 1,000 MG Q6 PRN 11/09 0015 AC 11/11 IV 1603 Alprazolam 1 MG TID PRN 11/09 0030 AC 11/10 PO 11/16 0029 2042 Ampicillin Sodium/ 3,000 MG Q6 11/09 1200 AC 11/11 Sulbactam Sodium IV 1755 Sodium Chloride 100 ML Aspirin Buffered 81 MG DAILY 11/11 1430 AC 11/11 PO 1603 Atorvastatin Calcium 80 MG 1700 11/09 1700 AC 11/11 PO 1603 Carvedilol 6.25 MG BID 11/09 09 AC 11/11 PO 0938 Clopidogrel Bisulfate 75 MG DAILY 11/11 1415 AC 11/11 PO 1603 Heparin Sodium 5,000 UNIT Q8 11/11 1600 AC 11/11 (Porcine) SC 1603 Omeprazole 40 MG DAILY AC 11/09 07 AC 11/11 PO 0634 Ondansetron HCl 4 MG Q8P PRN 11/09 0015 AC IV Oxycodone HCl 0 .STK-MED ONE 11/11 917 DC PO Oxycodone HCl 5 MG Q4 PRN 11/11 0915 AC 11/11 PO 1338 Quetiapine Fumarate 25 MG DAILY 11/09 899 AC 11/11 PO 0938 Venlafaxine HCl 150 MG DAILY 11/09 09 AC 11/11 PO 0938 Results Last 48 Hrs of Labs/Mics: Laboratory Tests 11/11/17 0425: Anion Gap 5, Estimated GFR > 60, Glucose 100 H, Calcium 7.9 L, Phosphorus 3.4, Magnesium 2.0, Total Bilirubin 0.5, AST 54 H, ALT 87 H, Albumin 2.5 L, CBC w Diff NO MAN DIFF REQ, RBC 2.78 L, MCV 93.8, MCH 30.8, MCHC 32.8 L, RDW 14.5, MPV 7.9, Gran % 72.4, Lymphocytes % 16.8 L, Monocytes % 9.5 H, Eosinophils % 1.1, Basophils % 0.2, Absolute Granulocytes 4.7, Absolute Lymphocytes 1.1 L, Absolute Monocytes 0.6, Absolute Eosinophils 0.1, Absolute Basophils 0 11/10/17 1110: Fluid WBC 7871 H, Fld Total RBCs Counted 2426 H 11/10/17 1110: [facility] [place] [facility] , Fluid Albumin < 1.0, Fluid Cholesterol < 50 11/10/17 0355: Anion Gap 3 L, Estimated GFR > 60, Glucose 80, Calcium 7.7 L, Phosphorus 3.3, Magnesium 1.9, Total Bilirubin 0.6, Direct Bilirubin 0.5 H, AST 69 H, ALT 97 H, Alkaline Phosphatase 212 H, Total Protein 5.0 L, Albumin 2.5 L, CBC w Diff NO MAN DIFF REQ, RBC 2.70 L, MCV 93.0, MCH 30.8, MCHC 33.1, RDW 14.1, MPV 7.9, Gran % 72.9, Lymphocytes % 16.9 L, Monocytes % 8.9, Eosinophils % 1.2, Basophils % 0.1, Absolute Granulocytes 4.7, Absolute Lymphocytes 1.1 L, Absolute Monocytes 0.6, Absolute Eosinophils 0.1, Absolute Basophils 0 11/09/172144: Anion Gap 8, Estimated GFR > 60, Glucose 140 H, Calcium 8.0 L, Phosphorus 2.1 L, Magnesium 1.9, Total Bilirubin 0.6, AST 77 H, ALT 103 H, Albumin 2.6 L, CBC w Diff NO MAN DIFF REQ, RBC 2.75 L, MCV 93.0, MCH 31.1 H, MCHC 33.5, RDW 14.3, MPV 8.3, Gran % 80.1 H, Lymphocytes % 13.6 L, Monocytes % 5.3, Eosinophils % 0.6, Basophils % 0.4, Absolute Granulocytes 5.5, Absolute Lymphocytes 0.9 L, Absolute Monocytes 0.4, Absolute Eosinophils 0, Absolute Basophils 0 Assessment/Plan Assessment/Plan Assessment: 1. CAD, status post CABG. Status post stent placement in February. 2. Implanted defibrillator 3. Cholecystitis, status post cholecystostomy tube placement 3. Mild troponin elevation, secondary to demand ischemia Plan: * Continue aspirin and plavix given recent drug-eluting stent * Continue other cardiac medications Continue telemetry? Yes
--- NOTE | 2017-11-11 19:00 | Event Note ---
Event Note Event Note: I was informed by the nurses that the patient has small amount of reddish discharge around her cholecystostomy tube. I examined the patient there was a minimal amount of reddish brownish discharge around and inside the cystostomy tube. Vital signs were stable, and patient did not have any significant pain at that time. I contacted IR in [facility] and they confirmed that this is expected after this kind of procedure. They recommended following the patient and if the bleeding increase or he can stop the aspirin and Plavix. Dr. Guzman was informant as well and he did not recommend any urgent imaging for the patient.
[2017-11-12] VITALS: BP 122/58
[2017-11-12 06:26] LABS: ABSOLUTE BASOPHIL COUNT 0 /CUMM (0.0-0.2); ABSOLUTE EOSINOPHIL COUNT 0.1 /CUMM (0.0-0.7); ABSOLUTE GRANULOCYTE CT 3.6 /CUMM (1.4-6.5); ABSOLUTE MONOCYTE COUNT 0.7 /CUMM (0.10-0.60); BASOPHIL % 0.4 % (0.0-2.0); EOSINOPHIL % 1.9 % (0-5); GRANULOCYTE % 56.2 % (42.2-75.2); MEAN CORPUSCULAR HGB 31.2 PG (27.0-31.0); MEAN CORPUSCULAR HGB CONC 33.7 G/DL (33.0-37.0); MEAN CORPUSCULAR VOLUME 92.6 FL (81.0-99.0); MEAN PLATELET VOLUME 7.2 FL (7.4-10.4); PLATELET COUNT 213 /CUMM (130-400); RED BLOOD CELL CT 2.91 /CUMM (4.20-5.40); WHITE BLOOD CELL COUNT 6.4 /CUMM (4.8-10.8)
--- NOTE | 2017-11-12 07:08 | PN- Resident CRCU ---
Subjective HPI/CRCU Issues: 1. Acute cholecystitis, will require cholecystostomy 2. Possible acute cholangitis. 3. Sepsis secondary to acute cholecystitis. 4. History of heart failure with reduced ejection fraction, last EF 30-35%. 5. Positive troponin likely related to demand ischemia. 24 Hour Events: Patient is sitting in the chief complaint of pain at the site of cholecystostomy tube which increased by stretching. Still having reddish-brown discharge around the cholecystostomy tube of small amount. Cholecystostomy tube drained is adequately drainning ( 70 CC in last 24 hrs) Objective Vital Signs & I&O Last 8 Hrs of Vitals and I&O: . Exam General Appearance: no apparent distress, alert, awake Head: atraumatic, normal appearance Respiratory: normal breath sounds, chest non-tender Cardiovascular: regular rate/rhythm Gastrointestinal: normal bowel sounds, soft, small amount of reddish- brown discharge around the cholecystostomy tube Extremities: no edema Current Medications: Current Medications Sig/Richa Start time Last Medication Dose Route Stop Time Status Admin Acetaminophen 650 MG Q6P PRN 11/09 0015 AC PO Acetaminophen 1,000 MG Q6 PRN 11/09 0015 AC 11/11 IV 1603 Alprazolam 1 MG TID PRN 11/09 0030 AC 11/10 PO 11/16 0029 2042 Ampicillin Sodium/ 3,000 MG Q6 11/09 1200 AC 11/12 Sulbactam Sodium IV 0601 Sodium Chloride 100 ML Aspirin Buffered 81 MG DAILY 11/11 1430 AC 11/12 PO 0903 Atorvastatin Calcium 80 MG 1700 / 1700 AC 11/11 PO 1603 Carvedilol 6.25 MG BID 11/09 0900 AC 11/12 PO 0902 Clopidogrel Bisulfate 75 MG DAILY 11/11 1415 AC 11/12 PO 0902 Heparin Sodium 5,000 UNIT Q8 11/11 1600 AC 11/12 (Porcine) SC 0601 Magnesium Oxide 400 MG ONE ONE 11/12 0730 DC 11/12 PO 11/12 0731 0902 Omeprazole 40 MG DAILY AC 11/09 0700 AC 11/12 PO 0600 Ondansetron HCl 4 MG Q8P PRN 11/09 0015 AC IV Oxycodone HCl 5 MG Q4 PRN 11/11 0915 AC 11/12 PO 0901 Potassium Chloride 40 MEQ ONCE ONE 11/12 1000 DC 11/12 PO 11/12 1001 0903 Potassium Chloride 0 .STK-MED ONE 11/12 0749 DC PO Potassium Chloride 40 MEQ ONCE ONE 11/12 0745 DC 11/12 PO 11/12 0746 0750 Potassium Chloride 80 MEQ ONCE ONE 11/12 0730 CAN PO 11/12 0731 Quetiapine Fumarate 25 MG DAILY 11/09 899 AC 11/12 PO 0902 Venlafaxine HCl 150 MG DAILY 11/09 899 AC 11/12 PO 0902 Impression/Plan Impression/Problem List Impression: 77-year-old female with PMH of pyloric stenosis, CAD status post stenting in 2006, CABG in 2002, AICD status post pacemaker for left bundle branch block, achalasia status post Botox, HFR EF (EF 30-35%), and hypertension. The patient was admitted with complaints of abdominal pain, nausea and vomiting for 2 days. She had greater than 20 episodes of nonbloody vomitus. In the ED, the patient was found to be afebrile, and hypotensive noting her blood pressure improved with IV fluids. The patient had an elevated white blood cell count of 13.5 with a left shift and a lactic acid of 2.0. She had mild transaminitis as well. A CT of the abdomen and pelvis demonstrated gallbladder wall thickening and mild intra-and extrahepatic biliary ductal dilatation. There is also mild inflammation along the right flank and fluid tracking to the right lower quadrant. Findings were thought to reflect acute cholecystitis. Patient had cholecystostomy tube placed yesterday, it is draining adequate amount. Patient is currently afebrile and her liver function trended down, which make contrast study through the cholecystostomy tube not urgent at this point Impression: 1. Acute cholecystitis S/P cholecystostomy tube: Body fluid culture growing gram-negative rods, liver function trending down 2. Sepsis secondary to acute cholecystitis- Resolved 3. History of CAD S/P CABG, heart failure with reduced ejection fraction, last EF 30-35%S/P defibilator 4.Positive troponin due to demand ischemia and sepsis 5. Anemia Plan: * Continue IV Unasyn , can change to by mouth depending on culture sensitivity results * Management of cholecystostomy tube Per IR * Continue aspirin Plavix * Follow-up pancultures * IV Tylenol PRN for pain * P.o. omeprazole 40 mg daily * Continue oxycodone 5 mg every 4 as needed for pain * Continue current medications. * DVT prophylaxis at all times. * DC Hoang cath * Continue to monitor CBCs and ICU bundle * Strict I's and O's, Hoang catheter. * Cardiology and GI recommendation appreciated * Monitor LFT daily * She was downgraded to telemetry today Full code Heart healthy diet DVT prophylaxis with subcutaneous heparin and Alps Problem List: 1. Cholecystitis Pain Ratin Tomorrow's Labs & Rationales: CBC ICU bundle Plan DVT/Prophylaxis: mechanical
--- NOTE | 2017-11-12 07:54 | PN- Pulmonary ---
Subjective HPI/Critical Care Issues: The patient is awake and alert. She reports feeling improved overall. The patient had reddish brown discharge around the inside of the cholecystostomy tube. The patient was monitored for bleeding overnight. GI was informed and no recommendations were made for urgent intervention. Objective Current Medications: Current Medications Sig/Richa Start time Last Medication Dose Route Stop Time Status Admin Acetaminophen 650 MG Q6P PRN 11/09 0015 AC PO Acetaminophen 1,000 MG Q6 PRN 11/09 0015 AC 11/11 IV 1603 Alprazolam 1 MG TID PRN 11/09 0030 AC 11/10 PO 11/16 0029 2042 Ampicillin Sodium/ 3,000 MG Q6 11/09 1200 AC 11/12 Sulbactam Sodium IV 0601 Sodium Chloride 100 ML Aspirin Buffered 81 MG DAILY 11/11 1430 AC 11/11 PO 1603 Atorvastatin Calcium 80 MG 1700 11/09 1700 AC 11/11 PO 1603 Carvedilol 6.25 MG BID 11/09 09 AC 11/11 PO 2104 Clopidogrel Bisulfate 75 MG DAILY 11/11 1415 AC 11/11 PO 1603 Heparin Sodium 5,000 UNIT Q8 11/11 1600 AC 11/12 (Porcine) SC 0601 Magnesium Oxide 400 MG ONE ONE 11/12 0630 DC PO 11/12 730 Omeprazole 40 MG DAILY AC 11/09 699 AC 11/12 PO 0600 Ondansetron HCl 4 MG Q8P PRN 11/09 0015 AC IV Oxycodone HCl 0 .STK-MED ONE 11/11 0918 DC PO Oxycodone HCl 5 MG Q4 PRN 11/11 0915 AC 11/12 PO 0318 Potassium Chloride 40 MEQ ONCE ONE 11/12 1000 AC PO 11/12 1001 Potassium Chloride 0 .STK-MED ONE 11/12 0749 AC PO Potassium Chloride 40 MEQ ONCE ONE 11/12 0745 DC PO 11/12 0746 Potassium Chloride 80 MEQ ONCE ONE 11/12 0730 CAN PO 11/12 0731 Quetiapine Fumarate 25 MG DAILY 11/09 899 AC 11/11 PO 09 Venlafaxine HCl 150 MG DAILY 11/09 899 AC 11/11 PO 0938 Vital Signs & I&O Last 24 Hrs of Vitals and I&O: Vital Signs Date Time Temp Pulse Resp B/P B/P Pulse O2 O2 Flow FiO2 Mean Ox Delivery Rate 08/08 0000 97.4 71 18 122/58 94 Room Air Room Air 11/11 2104 72 122/50 08 1600 99.6 75 21 116/52 94 Room Air 11/11 0938 79 124/48 11/11 0800 98.6 66 22 114/48 94 Room Air Intake & Output 11/12 0800 08/08 0000 08 1600 Intake Total 240 400 740 Output Total 35 22 870 Balance 205 378 -130 Intake, IV 100 Intake, Oral 240 400 640 Number 0 0 1 Bowel Movements Output, 35 20 Drainage Output, Other 30 Output, Urine 2 840 Patient 150 lb Weight Weight Bed scale Measurement Method Physical Exam General Appearance: well developed/nourished, alert, awake, comfortable Head: atraumatic, normal appearance Eyes: Bilateral: normal appearance, PERRL. Neck: supple Respiratory: normal breath sounds, chest non-tender, no respiratory distress Cardiovascular: regular rate/rhythm Gastrointestinal: tenderness in the RUQ, dressing/tube in place normal bowel sounds Extremities: normal inspection, normal capillary refill, no edema Results Last 24 Hrs of Lab Results: Laboratory Tests 11/12/17 0610: Anion Gap 5, Estimated GFR > 60, Glucose 89, Calcium 8.2 L, Phosphorus 3.6, Magnesium 1.8, Total Bilirubin 0.4, AST 35, ALT 70 H, Albumin 2.6 L, CBC w Diff NO MAN DIFF REQ, RBC 2.91 L, MCV 92.6, MCH 31.2 H, MCHC 33.7, RDW 14.0, MPV 7.2 L, Gran % 56.2, Lymphocytes % 31.1, Monocytes % 10.4 H, Eosinophils % 1.9, Basophils % 0.4, Absolute Granulocytes 3.6, Absolute Lymphocytes 2.0, Absolute Monocytes 0.7 H, Absolute Eosinophils 0.1, Absolute Basophils 0 Impression/Plan Impression/Plan Impression/Plan: 1. Acute cholecystitis, s/p cholecystostomy tube placement on 11/10/2017. 2. Sepsis, gram-negative rods growing in biliary fluid, afebrile and Unasyn. 3. Positive troponin secondary to demand ischemia and sepsis. 4. History of heart failure with reduced ejection fraction, last EF 30-35%. 5. History of pacemaker with possible ICD. 6. CAD status post stent placement in February 2017, on Plavix. 7. Anemia, without evidence of active bleeding. 8. GERD. Recommendations: * Monitor for bleeding. * Carvedilol, aspirin and Plavix as per cardiology. * Oxycodone 5 mg every 4 hours as needed for pain. * IV Tylenol for pain as needed. * Continue empiric antibiotics pending culture data - Unasyn. Will narrow antibiotics were changed to oral antibiotics pending cultures. * Continue all current medications. * DVT prophylaxis at all times. * Monitor on telemetry. Change to general med when okay with cardiology. * Physical therapy for ambulation. * Out of bed to chair. * Continue all supportive care.
[2017-11-12 08:00] VITALS: BP 140/70
--- NOTE | 2017-11-12 10:00 | PN- Cardiology ---
Subjective Subjective: The patient continues to complain of discomfort at the surgical site. No other cardiac symptoms noted. Objective Vital Signs and I&Os Vital Signs Date Time Temp Pulse Resp B/P B/P Pulse O2 O2 Flow FiO2 Mean Ox Delivery Rate 11/12 0902 81 145/59 11/12 0800 98.8 70 20 140/70 94 Room Air 11/12 0000 97.4 71 18 122/58 94 Room Air Room Air 11/11 2104 72 122/50 11/11 1600 99.6 75 21 116/52 94 Room Air Intake & Output 11/12 1600 11/12 0811/12 0000 11/11 1600 11/11 0811/11 0000 Intake Total 240 400 740 560 460 Output Total 35 22 870 600 395 Balance 205 378 -130 -40 65 Intake, IV 100 360 100 Intake, Oral 240 400 640 200 360 Number 0 0 1 Bowel Movements Output, 35 20 50 25 Drainage Output, Other 30 Output, Urine 2 840 550 370 Patient 150 lb 149 lb Weight Weight Bed scale Bed scale Measurement Method Physical Exam: General Appearance: well developed/nourished, thin elderly female, alert, awake, oriented Head: normal HEENT: Normal Neck: supple, JVP normal, carotid upstrokes normal bilaterally, no masses or thyromegaly Respiratory: chest non-tender, clear to auscultation and percussion bilaterally Cardiovascular: regular rate/rhythm, normal S1, S2, 1/6 systolic murmur Abdomen: normal bowel sounds, soft, non-tender Extremities: normal inspection, no edema Vascular: Pulses are 2+ and equal bilaterally Neurologic: Grossly normal/nonfocal Current Medications: Current Medications Sig/Richa Start time Last Medication Dose Route Stop Time Status Admin Acetaminophen 650 MG Q6P PRN 11/09 0015 AC PO Acetaminophen 1,000 MG Q6 PRN 11/09 0015 AC 11/11 IV 1603 Alprazolam 1 MG TID PRN 11/09 0030 AC 11/10 PO 11/16 0029 2042 Ampicillin Sodium/ 3,000 MG Q6 11/09 1200 AC 11/12 Sulbactam Sodium IV 0601 Sodium Chloride 100 ML Aspirin Buffered 81 MG DAILY 11/11 1430 AC 11/12 PO 0903 Atorvastatin Calcium 80 MG 1700 11/09 1700 AC 11/11 PO 1603 Carvedilol 6.25 MG BID 11/09 0900 AC 11/12 PO 0902 Clopidogrel Bisulfate 75 MG DAILY 11/11 1415 AC 11/12 PO 0902 Heparin Sodium 5,000 UNIT Q8 11/11 1600 AC 11/12 (Porcine) SC 0601 Magnesium Oxide 400 MG ONE ONE 11/12 0730 DC 11/12 PO 11/12 0731 0902 Omeprazole 40 MG DAILY AC 11/09 07 AC 11/12 PO 0600 Ondansetron HCl 4 MG Q8P PRN 11/09 0015 AC IV Oxycodone HCl 5 MG Q4 PRN 11/11 0915 AC 11/12 PO 0901 Potassium Chloride 40 MEQ ONCE ONE 11/12 1000 AC 11/12 PO 11/12 1001 0903 Potassium Chloride 0 .STK-MED ONE 11/12 0749 DC PO Potassium Chloride 40 MEQ ONCE ONE 11/12 0745 DC 11/12 PO 11/12 0746 0750 Potassium Chloride 80 MEQ ONCE ONE 11/12 0730 CAN PO 11/12 0731 Quetiapine Fumarate 25 MG DAILY 11/09 899 AC 11/12 PO 09 Venlafaxine HCl 150 MG DAILY 11/09 09 AC 11/12 PO 09 Results Last 48 Hrs of Labs/Mics: Laboratory Tests 11/12/17 0610: Anion Gap 5, Estimated GFR > 60, Glucose 89, Calcium 8.2 L, Phosphorus 3.6, Magnesium 1.8, Total Bilirubin 0.4, AST 35, ALT 70 H, Albumin 2.6 L, CBC w Diff NO MAN DIFF REQ, RBC 2.91 L, MCV 92.6, MCH 31.2 H, MCHC 33.7, RDW 14.0, MPV 7.2 L, Gran % 56.2, Lymphocytes % 31.1, Monocytes % 10.4 H, Eosinophils % 1.9, Basophils % 0.4, Absolute Granulocytes 3.6, Absolute Lymphocytes 2.0, Absolute Monocytes 0.7 H, Absolute Eosinophils 0.1, Absolute Basophils 0 11/11/17 0425: Anion Gap 5, Estimated GFR > 60, Glucose 100 H, Calcium 7.9 L, Phosphorus 3.4, Magnesium 2.0, Total Bilirubin 0.5, AST 54 H, ALT 87 H, Albumin 2.5 L, CBC w Diff NO MAN DIFF REQ, RBC 2.78 L, MCV 93.8, MCH 30.8, MCHC 32.8 L, RDW 14.5, MPV 7.9, Gran % 72.4, Lymphocytes % 16.8 L, Monocytes % 9.5 H, Eosinophils % 1.1, Basophils % 0.2, Absolute Granulocytes 4.7, Absolute Lymphocytes 1.1 L, Absolute Monocytes 0.6, Absolute Eosinophils 0.1, Absolute Basophils 0 11/10/17 1110: Fluid WBC 7871 H, Fld Total RBCs Counted 2426 H 11/10/17 1110: [facility] , Fluid Albumin < 1.0, Fluid Cholesterol < 50 Assessment/Plan Assessment/Plan Assessment: 1. CAD, status post CABG. Status post stent placement in February. 2. Implanted defibrillator 3. Cholecystitis, status post cholecystostomy tube placement 3. Mild troponin elevation, secondary to demand ischemia Plan: -Continue current cardiac medication regimen. -Keep on telemetry monitoring -Follow-up labs pending. -Patient remains with some postoperative discomfort. I explained her that this will hopefully improve over the next 24-48 hours. Continue telemetry? Yes
--- NOTE | 2017-11-12 13:31 | PN- Gastroenterology ---
Assessment/Plan GI Assessment/Recommendations: Assessment: Ms. Tobar is a 77 year old female admitted with cholecystitis for which she had a cholecystomy tube placed this past Friday with improvement in her pain and her vomiting. She has been afebrile and is now only complaining of some pain around the cholecystomy tube. Her biliubin has improved and as the dilation of her CBD on US was only mild and could potentially be expained by a prolonged obstruction of her cystic duct (ie. more bile would be directed to he CBD if the cystic duct was obstructed) I would hold off on a contrast study through the cholecystomy tube for now. Recommendations: 1. Would changer fixer to oral antibiotics to complete a 10-14 day course 2. Local wound care for cholecystomy tube as per IR and she should follow up with IR to remove the tube as an outpatient as per their recommendations (in general they are kept in for 4-6 weeks) 3. Follow daily LFTs, but for the reasons stated above would hold off a contrast study through the cholecystomy tube unless she has a marked elevation in her bilirubin 4. Low fat diet as tolerated. I will sign off at this time and ask that GI be re-contacted for any other GI issues that may arise while she is admitted. Subjective Subjective: pt with some tenderness and mild bleeding by the cholecystomy tube, but no other pain and she is tolerating solid food without any vomiting or without any exacerbation of her pain. Objective Vital Signs and I&Os Vital Signs Date Time Temp Pulse Resp B/P B/P Pulse O2 O2 Flow FiO2 Mean Ox Delivery Rate 11/12 0902 81 145/59 11/12 0800 98.8 70 20 140/70 94 Room Air 11/12 0000 97.4 71 18 122/58 94 Room Air Room Air 11/11 2104 72 122/50 11/11 1600 99.6 75 21 116/52 94 Room Air Intake & Output 11/12 1600 11/12 0400 11/11 1600 11/11 0400 11/10 0400 Intake Total 883 623 9385 460 1730 1180 Output Total 35 22 1470 395 770 550 Balance 205 378 -170 65 960 630 Intake, IV 910 485 6355 300 Intake, Oral 240 400 840 360 480 880 Number 0 0 1 0 0 Bowel Movements Output, 35 20 50 25 Drainage Output, Other 30 20 Output, Urine 2 1390 370 750 550 Patient 150 lb 149 lb 143 lb Weight Weight Bed scale Bed scale Measurement Method Physical Exam General Appearance: no apparent distress, awake, comfortable Head: atraumatic Ears, Nose, Throat: normal pharynx Respiratory: normal breath sounds, chest non-tender, no respiratory distress Cardiovascular: regular rate/rhythm Abdomen: normal bowel sounds, soft, tenderness, mild tenderness aroudn cholecystomy tube with some dried blood Extremities: no edema Current Medications: Current Medications Sig/Richa Start time Last Medication Dose Route Stop Time Status Admin Acetaminophen 650 MG Q6P PRN 11/09 0015 AC PO Acetaminophen 1,000 MG Q6 PRN 11/09 0015 AC 11/11 IV 1603 Alprazolam 1 MG TID PRN 11/09 0030 AC 11/10 PO 11/16 0029 2042 Ampicillin Sodium/ 3,000 MG Q6 11/09 1200 AC 11/12 Sulbactam Sodium IV 1155 Sodium Chloride 100 ML Aspirin Buffered 81 MG DAILY 11/11 1430 AC 11/12 PO 0903 Atorvastatin Calcium 80 MG 1700 11/09 1700 AC 11/11 PO 1603 Carvedilol 6.25 MG BID 11/09 09 AC 11/12 PO 0902 Clopidogrel Bisulfate 75 MG DAILY 11/11 1415 AC 11/12 PO 0902 Heparin Sodium 5,000 UNIT Q8 11/11 1600 AC 11/12 (Porcine) SC 0601 Magnesium Oxide 400 MG ONE ONE 11/12 729 DC 11/12 PO 11/12 0731 0902 Omeprazole 40 MG DAILY AC 11/09 07 AC 11/12 PO 0600 Ondansetron HCl 4 MG Q8P PRN 11/09 0015 AC IV Oxycodone HCl 5 MG Q4 PRN 11/11 0915 AC 11/12 PO 1318 Potassium Chloride 40 MEQ ONCE ONE 11/12 1000 DC 11/12 PO 11/12 1001 0903 Potassium Chloride 0 .STK-MED ONE 11/12 0749 DC PO Potassium Chloride 40 MEQ ONCE ONE 11/12 0745 DC 11/12 PO 11/12 0746 0750 Potassium Chloride 80 MEQ ONCE ONE 11/12 0730 CAN PO 11/12 0731 Quetiapine Fumarate 25 MG DAILY 11/09 899 AC 11/12 PO 0902 Venlafaxine HCl 150 MG DAILY 11/09 899 AC 11/12 PO 0902 Results Pertinent Lab Results: Laboratory Tests 11/12 11/11 0610 5010 Chemistry Sodium (137 - 145 mmol/L) 138 137 Potassium (3.5 - 5.1 mmol/L) 3.3 L 3.7 Chloride (98 - 107 mmol/L) 108 H 109 H Carbon Dioxide (22 - 30 mmol/L) 25 23 Anion Gap (5 - 16) 5 5 BUN (7 - 17 mg/dL) 7 8 Creatinine (0.5 - 1.0 mg/dL) 0.8 0.8 Estimated GFR (>60 ml/min) > 60 > 60 Glucose (65 - 99 mg/dL) 89 100 H Calcium (8.4 - 10.2 mg/dL) 8.2 L 7.9 L Phosphorus (2.5 - 4.5 mg/dL) 3.6 3.4 Magnesium (1.6 - 2.3 mg/dL) 1.8 2.0 Total Bilirubin (0.2 - 1.3 mg/dL) 0.4 0.5 AST (14 - 36 U/L) 35 54 H ALT (9 - 52 U/L) 70 H 87 H Albumin (3.5 - 5.0 g/dL) 2.6 L 2.5 L Hematology CBC w Diff NO MAN DIFF REQ NO MAN DIFF REQ WBC (4.8 - 10.8 /CUMM) 6.4 6.5 RBC (4.20 - 5.40 /CUMM) 2.91 L 2.78 L Hgb (12.0 - 16.0 G/DL) 9.1 L 8.6 L Hct (37 - 47 %) 27.0 L 26.1 L MCV (81.0 - 99.0 FL) 92.6 93.8 MCH (27.0 - 31.0 PG) 31.2 H 30.8 MCHC (33.0 - 37.0 G/DL) 33.7 32.8 L RDW (11.5 - 14.5 %) 14.0 14.5 Plt Count (130 - 400 /CUMM) 213 167 MPV (7.4 - 10.4 FL) 7.2 L 7.9 Gran % (42.2 - 75.2 %) 56.2 72.4 Lymphocytes % (20.5 - 51.1 %) 31.1 16.8 L Monocytes % (1.7 - 9.3 %) 10.4 H 9.5 H Eosinophils % (0 - 5 %) 1.9 1.1 Basophils % (0.0 - 2.0 %) 0.4 0.2 Absolute Granulocytes (1.4 - 6.5 /CUMM) 3.6 4.7 Absolute Lymphocytes (1.2 - 3.4 /CUMM) 2.0 1.1 L Absolute Monocytes (0.10 - 0.60 /CUMM) 0.7 H 0.6 Absolute Eosinophils (0.0 - 0.7 /CUMM) 0.1 0.1 Absolute Basophils (0.0 - 0.2 /CUMM) 0 0 08 08 08 1110 1110 0355 Chemistry Sodium (137 - 145 mmol/L) 138 Potassium (3.5 - 5.1 mmol/L) 4.1 Chloride (98 - 107 mmol/L) 112 H Carbon Dioxide (22 - 30 mmol/L) 23 Anion Gap (5 - 16) 3 L BUN (7 - 17 mg/dL) 10 Creatinine (0.5 - 1.0 mg/dL) 0.8 Estimated GFR (>60 ml/min) > 60 Glucose (65 - 99 mg/dL) 80 Calcium (8.4 - 10.2 mg/dL) 7.7 L Phosphorus (2.5 - 4.5 mg/dL) 3.3 Magnesium (1.6 - 2.3 mg/dL) 1.9 Total Bilirubin (0.2 - 1.3 mg/dL) 0.6 Direct Bilirubin (< 0.4 mg/dL) 0.5 H AST (14 - 36 U/L) 69 H ALT (9 - 52 U/L) 97 H Alkaline Phosphatase (<127 U/L) 212 H Total Protein (6.3 - 8.2 g/dL) 5.0 L Albumin (3.5 - 5.0 g/dL) 2.5 L Hematology CBC w Diff NO MAN DIFF REQ WBC (4.8 - 10.8 /CUMM) 6.4 RBC (4.20 - 5.40 /CUMM) 2.70 L Hgb (12.0 - 16.0 G/DL) 8.3 L Hct (37 - 47 %) 25.1 L MCV (81.0 - 99.0 FL) 93.0 MCH (27.0 - 31.0 PG) 30.8 MCHC (33.0 - 37.0 G/DL) 33.1 RDW (11.5 - 14.5 %) 14.1 Plt Count (130 - 400 /CUMM) 139 MPV (7.4 - 10.4 FL) 7.9 Gran % (42.2 - 75.2 %) 72.9 Lymphocytes % (20.5 - 51.1 %) 16.9 L Monocytes % (1.7 - 9.3 %) 8.9 Eosinophils % (0 - 5 %) 1.2 Basophils % (0.0 - 2.0 %) 0.1 Absolute Granulocytes (1.4 - 6.5 /CUMM) 4.7 Absolute Lymphocytes (1.2 - 3.4 /CUMM) 1.1 L Absolute Monocytes (0.10 - 0.60 /CUMM) 0.6 Absolute Eosinophils (0.0 - 0.7 /CUMM) 0.1 Absolute Basophils (0.0 - 0.2 /CUMM) 0 Misc Hematology Test (%) Other Body Source Fluid WBC (0 - 5 /CUMM) 7871 H Fld Total RBCs Counted (0 /CUMM) 2426 H Fluid Albumin (g/dL) < 1.0 Fluid Cholesterol (mg/dL) < 50 11/09 08 2145 1540 Chemistry Sodium (137 - 145 mmol/L) 140 Potassium (3.5 - 5.1 mmol/L) 3.3 L Chloride (98 - 107 mmol/L) 110 H Carbon Dioxide (22 - 30 mmol/L) 22 Anion Gap (5 - 16) 8 BUN (7 - 17 mg/dL) 11 Creatinine (0.5 - 1.0 mg/dL) 0.8 Estimated GFR (>60 ml/min) > 60 Glucose (65 - 99 mg/dL) 140 H Calcium (8.4 - 10.2 mg/dL) 8.0 L Phosphorus (2.5 - 4.5 mg/dL) 2.1 L Magnesium (1.6 - 2.3 mg/dL) 1.9 Total Bilirubin (0.2 - 1.3 mg/dL) 0.6 AST (14 - 36 U/L) 77 H ALT (9 - 52 U/L) 103 H Albumin (3.5 - 5.0 g/dL) 2.6 L Hematology CBC w Diff NO MAN DIFF REQ NO MAN DIFF REQ WBC (4.8 - 10.8 /CUMM) 6.8 7.0 RBC (4.20 - 5.40 /CUMM) 2.75 L 2.85 L Hgb (12.0 - 16.0 G/DL) 8.6 L 8.9 L Hct (37 - 47 %) 25.6 L 26.5 L MCV (81.0 - 99.0 FL) 93.0 93.0 MCH (27.0 - 31.0 PG) 31.1 H 31.1 H MCHC (33.0 - 37.0 G/DL) 33.5 33.4 RDW (11.5 - 14.5 %) 14.3 13.9 Plt Count (130 - 400 /CUMM) 142 154 MPV (7.4 - 10.4 FL) 8.3 7.7 Gran % (42.2 - 75.2 %) 80.1 H 72.6 Lymphocytes % (20.5 - 51.1 %) 13.6 L 16.8 L Monocytes % (1.7 - 9.3 %) 5.3 9.6 H Eosinophils % (0 - 5 %) 0.6 0.7 Basophils % (0.0 - 2.0 %) 0.4 0.3 Absolute Granulocytes (1.4 - 6.5 /CUMM) 5.5 5.1 Absolute Lymphocytes (1.2 - 3.4 /CUMM) 0.9 L 1.2 Absolute Monocytes (0.10 - 0.60 /CUMM) 0.4 0.7 H Absolute Eosinophils (0.0 - 0.7 /CUMM) 0 0.1 Absolute Basophils (0.0 - 0.2 /CUMM) 0 0 08/05 1525 Chemistry Sodium (137 - 145 mmol/L) 139 Potassium (3.5 - 5.1 mmol/L) 3.9 Chloride (98 - 107 mmol/L) 113 H Carbon Dioxide (22 - 30 mmol/L) 21 L Anion Gap (5 - 16) 5 BUN (7 - 17 mg/dL) 10 Creatinine (0.5 - 1.0 mg/dL) 0.9 Estimated GFR (>60 ml/min) > 60 Glucose (65 - 99 mg/dL) 75 Lactic Acid (0.7 - 2.1 mmol/L) 0.6 L Calcium (8.4 - 10.2 mg/dL) 8.0 L Phosphorus (2.5 - 4.5 mg/dL) 2.8 Magnesium (1.6 - 2.3 mg/dL) 1.9 Total Bilirubin (0.2 - 1.3 mg/dL) 0.9 AST (14 - 36 U/L) 93 H ALT (9 - 52 U/L) 117 H Albumin (3.5 - 5.0 g/dL) 2.6 L
[2017-11-12 15:59] VITALS: BP 140/62
[2017-11-12 23:42] VITALS: BP 124/66
--- NOTE | 2017-11-13 06:52 | PN- Housestaff ---
Hai Ocasio 11/13/17 0652: Subjective Follow-up For: Cholecystitis s/p cholecystostomy placement Choledocolithiasis Tele-Events Since Last Visit: Normal sinus rhythm 69-81, with recorded accelerated ventricular rhythm overnight Subjective: Patient seen resting comfortably in the bed. She is complaining of pain/soreness to her upper left abdominal quadrant, surrounding the site of the cholecystostomy tube insertion. She denies fever/chills, nausea or vomiting or diarrhea. She denies chest pain, shortness of breath, dizziness or palpitations. She reports a good appetite, although she has difficulty swallowing due to her achalasia. Review of Systems Constitutional: Denies: chills, diaphoresis, fever, malaise. Objective Last 24 Hrs of Vital Signs/I&O Vital Signs Date Time Temp Pulse Resp B/P B/P Pulse O2 O2 Flow FiO2 Mean Ox Delivery Rate 11/12 2342 98.1 76 20 124/66 97 Room Air 11/12 2052 97.7 78 20 129/50 11/12 1559 98.1 80 20 140/62 94 Room Air 11/12 0902 81 145/59 11/12 0800 98.8 70 20 140/70 94 Room Air Intake & Output 11/13 0800 / 0000 11/12 1600 Intake Total 200 720 770 Output Total 335 550 820 Balance -135 170 -50 Intake, IV 200 120 Intake, Oral 720 650 Number 3 Bowel Movements Output, 50 Drainage Output, Other 35 20 Output, Urine 300 500 800 Patient 69.4 kg Weight Weight Bed scale Measurement Method Physical Exam General Appearance: Alert, Oriented X3, Cooperative, No Acute Distress HEENT: Atraumatic, PERRLA, EOMI Neck: Supple, No JVD Cardiovascular: Regular Rate, Normal S1, Normal S2, No Murmurs Lungs: Clear to Auscultation, Normal Air Movement Abdomen: Normal Bowel Sounds, Soft, Cholecystostomy tube draining in the RUQ, greenish/yellow fluid collecting in the bag, just emptied prior to exam and draining well ; small amount of blood surrounding the insertion site; Tenderness surrounding the insertion site, as well as tenderness to deep palpation in the LUQ, no hematomas suggestive of blood pooling in the abdomen-- abdomen is soft w/o guarding Extremities: No Clubbing, No Cyanosis, No Edema Assessment/Plan Assessment: 77-year-old female with PMH of achalasia, pyloric stenosis(?), CAD status post stenting in February 2017, CABG in 2002, AICD status post pacemaker for left bundle branch block, achalasia, HFR EF (EF 30-35%), and HTN. Patient admitted w / abdominal pain, nausea and non-bloody vomiting for 2 days. The patient had an elevated white blood cell count of 13.5 with a left shift, lactic acid of 2.0. CT abdomen and pelvis demonstrated gallbladder wall thickening and mild intra- and extrahepatic biliary ductal dilatation, suggestive of acute cholecystitis considering the clinical picture. Patient had cholecystostomy tube placed 11/10 and being treated with antibiotics. Microbiology results for cholecystostomy placement sample came back for two gram negative organisms, first is enterobacter cloacae, sensitive to ciprofloxacin ( resistent to ampicillin), second pending. To tailor abx after cultures and switch to PO. Patient is afebrile and WBCs today are 7.7--have only been elevated upon presentation. Contrast imaging through the cholecystostomy tube for obstruction not pressing, as bilirubin has been trending down (0.3 today), Liver enzymes also trending down. Patient had demand ischemia with slightly elevated troponins (0.12) secondary to sepsis/demand ischemia upon admission, history of CAD s/p CABG and stent placement. Problems: 1. Acute cholecystitis S/P cholecystostomy tube 2. Sepsis secondary to acute cholecystitis- Resolved 3. History of CAD S/P CABG, heart failure with reduced ejection fraction, last EF 30-35%S/P defibilator 4.Positive troponin due to demand ischemia and sepsis 5. Anemia Plan: * Culture resistant to Unasyn, start IV Ciprofloxacin * Management of cholecystostomy tube Per IR * Continue aspirin and Plavix * P.o. omeprazole 40 mg daily * Continue Percocet every 4 hours as needed for pain * Daily monitoring of LFT's * Interrogate AICD * Re-started home dose of Lisinoprol 20mg PO daily, it was held in the setting of sepsis/hypotension, which has resolved Full code Heart healthy diet DVT prophylaxis with subcutaneous heparin and Alps Problem List: 1. Cholecystitis 2. Sepsis 3. Cholecystostomy care 4. Choledocholithiasis with acute cholecystitis with obstruction Pain Ratin Pain Location: RUQ around insertion site Pain Goal: Pain 4 or less Pain Plan: Per pathway Tomorrow's Labs & Rationales: LFT's, BEP & CBC Luz GRESHAM,Cooper 11/13/17 1205: Attending MD Review Statement Attending Statement Attending MD Statement: examined this patient, discuss w/resident/PA/COUNT ROOM CLERK, agreed w/resident/PA/COUNT ROOM CLERK, reviewed EMR data (avail), discussed with nursing, discussed with case mgmt, amended to note Attending Assessment/Plan: Patient seen and examined. Resting comfortably not in acute distress. Medical records reviewed. Reports mild discomfort at the surgical site. Relieved with analgesic therapy. Denies nausea vomiting. Denies diarrhea. She is afebrile hemodynamically stable. Leukocytosis present on admission has since resolved. Cultures from the cholecystostomy drainage currently growing Enterobacter and possibly another gram-negative organism. It is resistant to ampicillin. On examination she is not in any acute distress. Heart sounds a regular. Abdomen is soft and nontender with normal bowel sounds. Ee surgical site appears healthy although the dressing is blood soaked. Recommendations: -Will transition patient to IV ciprofloxacin. If patientatient remains afebrile over the next 24-48 hours she may be discharged home on oral ciprofloxacin to complete 2 weeks of therapy. -She will be discharged with the cholecystostomy tube in place and will follow- up with the gastroenterology and interventional radiology service as an outpatient. -Her elevated troponins have been attributed to demand ischemia from her infection. Recommend outpatient follow-up with the cardiology service. -Need for further ischemic workup will be determined by the cardiology service. This is the second time this year she has presented with elevated troponins. She has a history of coronary artery disease and chronic systolic dysfunction with EF of 25-30%. She did have cardiac cath with stent placement in February 2017. She is currently on medical therapy with aspirin, Plavix, Coreg. It appears that her lisinopril is on hold. If there is no contraindication please resume this medication. 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 As an outpatient with her cardiology service she may be reevaluated for possibly starting Entresto if this has not been done previously. -Continue routine surgical site care. Patient will require home care services to help with dressing changes and also managing her cholecystostomy Drainage
[2017-11-13 06:55] VITALS: BP 142/66
[2017-11-13 08:05] LABS: ABSOLUTE BASOPHIL COUNT 0 /CUMM (0.0-0.2); ABSOLUTE EOSINOPHIL COUNT 0.1 /CUMM (0.0-0.7); ABSOLUTE GRANULOCYTE CT 4.4 /CUMM (1.4-6.5); ABSOLUTE LYMPH COUNT 2.3 /CUMM (1.2-3.4); ABSOLUTE MONOCYTE COUNT 0.8 /CUMM (0.10-0.60); BASOPHIL % 0.4 % (0.0-2.0); EOSINOPHIL % 1.4 % (0-5); GRANULOCYTE % 58.1 % (42.2-75.2); HEMATOCRIT 28.5 % (37-47); MEAN CORPUSCULAR HGB 31.1 PG (27.0-31.0); MEAN CORPUSCULAR HGB CONC 33.4 G/DL (33.0-37.0); MEAN CORPUSCULAR VOLUME 93.1 FL (81.0-99.0); MEAN PLATELET VOLUME 7.4 FL (7.4-10.4); PLATELET COUNT 225 /CUMM (130-400); RBC DISTRIBUTION WIDTH 14.3 % (11.5-14.5); RED BLOOD CELL CT 3.06 /CUMM (4.20-5.40); WHITE BLOOD CELL COUNT 7.7 /CUMM (4.8-10.8)
[2017-11-13 14:20] VITALS: BP 132/60
[2017-11-13 22:15] VITALS: BP 154/86
--- NOTE | 2017-11-14 05:22 | PN- Housestaff ---
Hai Ocasio 11/14/17 0522: Subjective Follow-up For: Cholecystitis s/p cholecystostomy placement Choledocolithiasis (likely resolved) Tele-Events Since Last Visit: Normal sinus rhythm overnight Subjective: Patient seen resting comfortably in the bed. She is complaining of pain around the insertion site of her cholecystostomy tube. She does report feeling diaphoretic last night, but denies nausea/vomiting. She also reports discomfort when taking a deep breath, but feels this is secondary to the soreness felt at the insertion site. She otherwise denies headache, dizziness, chest pain, palpitations or shortness of breath. Her medtronic AICD was interrogated last night and is functioning well. Review of Systems Constitutional: Reports: diaphoresis. Denies: chills, fever, weakness. Objective Last 24 Hrs of Vital Signs/I&O Vital Signs Date Time Temp Pulse Resp B/P B/P Pulse O2 O2 Flow FiO2 Mean Ox Delivery Rate 11/14 195 82 144/60 11/14 1400 98.1 79 20 124/62 93 11/14 0816 78 126/66 11/14 0816 78 126/66 11/14 0643 99.1 78 20 126/66 96 Room Air 11/13 2215 98.3 86 20 154/86 94 11/13 2156 86 154/86 Intake & Output 11/14 1600 11/14 0800 11/14 0000 Intake Total 500 120 650 Output Total 90 330 30 Balance 410 -210 620 Intake, Oral 500 120 650 Number 1 Bowel Movements Output, 30 Gastric Drainage Output, Other 90 30 Output, Urine 300 Patient 71.441 kg Weight Physical Exam General Appearance: Alert, Oriented X3, Cooperative, No Acute Distress HEENT: Atraumatic, PERRLA, EOMI Cardiovascular: Regular Rate, Normal S1, Normal S2, No Murmurs Lungs: Clear to Auscultation, Normal Air Movement Abdomen: Tenderness around the insertion site, with some dried bloody drainage under the dressing. Tenderness around the site of the cholecystostomy tube dressing Current Medications: Current Medications Sig/Richa Start time Last Medication Dose Route Stop Time Status Admin Acetaminophen 650 MG Q6P PRN 11/09 0015 AC PO Alprazolam 1 MG TID PRN 11/09 0030 AC 11/13 PO 11/16 0029 2154 Aspirin Buffered 81 MG DAILY 11/11 1430 AC 11/14 PO 0815 Atorvastatin Calcium 80 MG 1700 11/09 1700 AC 11/14 PO 1623 Carvedilol 6.25 MG BID 11/09 09 AC 11/14 PO 195 Ciprofloxacin 500 MG BID 11/15 899 AC PO 11/18 155 Ciprofloxacin 500 MG BID 11/14 2100 DC PO 11/18 2058 Ciprofloxacin 400 MG Q12 11/14 2100 AC 11/14 Dextrose/Water 200 ML IV 11/14 Ciprofloxacin 400 MG Q12 11/13 0846 DC 11/14 Dextrose/Water 200 ML IV 08 Clopidogrel Bisulfate 75 MG DAILY 11/11 1415 AC 11/14 PO 0816 Heparin Sodium 5,000 UNIT Q8 11/11 1600 AC 11/14 (Porcine) SC 195 Lisinopril 20 MG DAILY 11/13 1420 AC 11/14 PO 08 Omeprazole 40 MG DAILY AC 11/09 0700 AC 11/14 PO 0609 Ondansetron HCl 4 MG Q8P PRN 11/09 0015 AC IV Oxycodone/ 1 TAB Q4P PRN 11/12 1630 AC 11/14 Acetaminophen PO 1623 Patient Medication 1 ED ONE ONE 11/14 1415 AR 11/14 Teaching ED 11/14 1416 1408 Quetiapine Fumarate 25 MG DAILY 11/09 09 AC 11/14 PO 0816 Venlafaxine HCl 150 MG DAILY 11/09 09 AC 11/14 PO 0816 Last 24 Hrs of Lab/Richie Results Last 24 Hrs of Labs/Mics: Laboratory Tests 11/14/17 0626: Anion Gap 6, Estimated GFR > 60, BUN/Creatinine Ratio 5.0 L, Total Bilirubin 0.2, Direct Bilirubin 0.2, AST 22, ALT 50, Alkaline Phosphatase 252 H, Total Protein 5.5 L, Albumin 2.8 L, CBC w Diff NO MAN DIFF REQ, RBC 3.02 L, MCV 93.2, MCH 30.9, MCHC 33.1, RDW 14.1, MPV 7.5, Gran % 55.6, Lymphocytes % 34.6, Monocytes % 7.9, Eosinophils % 1.7, Basophils % 0.2, Absolute Granulocytes 4.6, Absolute Lymphocytes 2.8, Absolute Monocytes 0.6, Absolute Eosinophils 0.1, Absolute Basophils 0 Lines/Diet/Fluids Catheters/Tubes: Cholecystostomy in place and draining, scant amount of blood in the bag Assessment/Plan Assessment: 77-year-old female with PMH of achalasia, pyloric stenosis(?), CAD status post stenting in February 2017, CABG in 2002, AICD status post pacemaker for left bundle branch block, achalasia, HFR EF (EF 30-35%), and HTN. Patient admitted w / abdominal pain, nausea and non-bloody vomiting for 2 days. The patient had an elevated white blood cell count of 13.5 with a left shift, lactic acid of 2.0. CT abdomen and pelvis demonstrated gallbladder wall thickening and mild intra- and extrahepatic biliary ductal dilatation, suggestive of acute cholecystitis considering the clinical picture. Patient had cholecystostomy tube placed 11/10 and being treated with antibiotics. Final microbiology results for cholecystostomy sample showed the ciprofloxacin sensitive Enterobacter, continuing the IV ciprofloxacin and switching to the PO tomorrow morning, today is day 2 of a 14 day course. Blood pressure this morning was 126/66. Medtronic defibrillator interrogated and functioning well. Problems: 1. Acute cholecystitis S/P cholecystostomy tube 2. Sepsis secondary to acute cholecystitis- Resolved 3. History of CAD S/P CABG, heart failure with reduced ejection fraction, last EF 30-35% S/P defibilator 4.Positive troponin due to demand ischemia and sepsis 5. Anemia Plan: * Continue aspirin and Plavix * Ciprofloxacin IV today, day 214--switch to PO tomorrow * Continue Omeprazole 40 mg daily * Continue Percocet every 4 hours as needed for pain * Daily monitoring of LFT's * Continue Lisinopril * Follow-up with GI as outpatient for achalasia--avoid large pills/tablets in the inpatient setting Full code Heart healthy diet DVT prophylaxis with subcutaneous heparin and Alps Problem List: 1. Cholecystostomy care 2. Choledocholithiasis with acute cholecystitis with obstruction 3. Cholecystitis 4. Sepsis Pain Ratin Pain Location: abdomen Pain Goal: Pain 4 or less Pain Plan: per pathway Tomorrow's Labs & Rationales: LFT's, CBC, BEP Luz GRESHAM,Cooper 11/14/17 1138: Attending Review Statement Attending Statement Attending Statement: examined this patient, discuss w/resident/PA/SODA CLERK, agreed w/resident/PA/SODA CLERK, reviewed EMR data (avail), discussed with nursing, discussed with case mgmt, amended to note Attending Assessment/Plan: Patient seen and examined. Resting comfortably not in any acute distress. No issues overnight. No events on telemetry monitoring. This morning denies nausea vomiting. Reports some abdominal discomfort at the surgical site. Pain is resolved with analgesic therapy. She is ambulating freely. She offers no new complaints. She remains afebrile. She remains hemodynamically stable. On examination cholecystostomy tube continues to drain bile colored fluid. No erythema around the insertion site. Mild tenderness at incision site. There is blood around the dressing and this will need to be changed. No palpable hematoma noted. Hemoglobin level is stable. Plan: -Continue IV antibiotics today. Transfer patient to oral ciprofloxacin tomorrow and complete 14 days of therapy. -Patient should follow-up with the gastroenterology service as an outpatient for scheduling of removal of cholecystostomy tube. -Lisinopril restarted. She will continue her other cardiac medications including aspirin Plavix and Coreg. She is to follow-up with the cardiology service. Need for further ischemic workup will be determined by her cardiology service. -She required home care services in managing her cholecystostomy drainage. -Patient remains hemodynamically stable she may be discharged home tomorrow.
[2017-11-14 06:43] VITALS: BP 126/66
[2017-11-14 07:40] LABS: ABSOLUTE BASOPHIL COUNT 0 /CUMM (0.0-0.2); ABSOLUTE EOSINOPHIL COUNT 0.1 /CUMM (0.0-0.7); ABSOLUTE GRANULOCYTE CT 4.6 /CUMM (1.4-6.5); ABSOLUTE LYMPH COUNT 2.8 /CUMM (1.2-3.4); ABSOLUTE MONOCYTE COUNT 0.6 /CUMM (0.10-0.60); BASOPHIL % 0.2 % (0.0-2.0); EOSINOPHIL % 1.7 % (0-5); GRANULOCYTE % 55.6 % (42.2-75.2); HEMATOCRIT 28.1 % (37-47); MEAN CORPUSCULAR HGB 30.9 PG (27.0-31.0); MEAN CORPUSCULAR HGB CONC 33.1 G/DL (33.0-37.0); MEAN CORPUSCULAR VOLUME 93.2 FL (81.0-99.0); MEAN PLATELET VOLUME 7.5 FL (7.4-10.4); PLATELET COUNT 240 /CUMM (130-400); RBC DISTRIBUTION WIDTH 14.1 % (11.5-14.5); RED BLOOD CELL CT 3.02 /CUMM (4.20-5.40); WHITE BLOOD CELL COUNT 8.2 /CUMM (4.8-10.8)
[2017-11-14 14:00] VITALS: BP 124/62
[2017-11-14] MEDS ORDERED: CIPRO500 M1 PO (15:28)
--- NOTE | 2017-11-14 15:28 | Patient Discharge Instructions ---
Discharge Instructions General Discharge Information You were seen/treated for: CHOLECYSTITIS, CHOLEDOCOLITHIASIS Special Instructions: PLEASE FOLLOW-UP WITH YOUR FIELD TALENT QUALIFICATION SPECIALIST AND CRACK OFF PERSON AN OUTPATIENT. REFER TO YOUR CRACK OFF PERSON FOR WHEN THE CHOLECYSTOSTOMY TUBE SHOULD BE TAKEN OUT. Diet Continue normal diet: Yes Recommended Diet: Heart Healthy Activity Full Activity/No Limits: No Activity Self Limited: Yes Acute Coronary Syndrome Inclusion Criteria At DC or during hospital stay patient has or had the following: ACS DIAGNOSIS No Discharge Core Measures Meds if any: Prescribed or Continued at Discharge Meds if any: NOT Prescribed or Continued at Discharge Congestive Heart Failure Inclusion Criteria At DC or during hospital stay patient has or had the following: CHF DIAGNOSIS No Discharge Core Measures Meds if any: Prescribed or Continued at Discharge Meds if any: NOT Prescribed or Continued at Discharge Cerebrovascular accident Inclusion Criteria At DC or during hospital stay patient has or had the following: CVA/TIA Diagnosis No Discharge Core Measures Meds if any: Prescribed or Continued at Discharge Meds if any: NOT Prescribed or Continued at Discharge Venous thromboembolism Inclusion Criteria VTE Diagnosis No VTE Type NONE VTE Confirmed by (Test) NONE Discharge Core Measures - Per Current guidelines, there needs to be overlap - treatment for the first 5 days of Warfarin therapy. - If discharged on Warfarin prior to 5 days of - overlap therapy, the patient will need to be - assessed for post discharge needs including - *Post discharge parental anticoagulation - *Warfarin and/or parental anticoagulation education - *Follow up date to check INR post discharge At least 5 days overlap therapy as Inpatient No Meds if any: Prescribed or Continued at Discharge Note: Overlap Therapy is Warfarin and Anticoagulant Meds if any: NOT Prescribed or Continued at Discharge
[2017-11-14 22:33] VITALS: BP 120/66
[2017-11-15 06:44] VITALS: BP 126/62
[2017-11-15 08:00] VITALS: BP 146/64
[2017-11-15 08:41] LABS: PTT 33 SEC (25-37)
--- NOTE | 2017-11-15 08:48 | PN- Housestaff ---
See Addendum Subjective Follow-up For: Cholecystitis s/p cholecystostomy placement Tele-Events Since Last Visit: sinus rhythm, no events Subjective: Patient looks well this morning. She is complaining of right sided abdominal pain, tender to palpation, and soreness at the cholecystotomy site. She has no complaints of chest pain or dyspnea. She states she did have some diarrhea this morning Review of Systems Constitutional: Reports: see HPI. Objective Last 24 Hrs of Vital Signs/I&O Vital Signs Date Time Temp Pulse Resp B/P B/P Pulse O2 O2 Flow FiO2 Mean Ox Delivery Rate 11/16 799 78 146/64 11/15 0759 78 146/64 11/15 0644 98.6 71 20 126/62 92 Room Air 11/14 2233 98.2 73 22 120/66 92 11/14 1952 82 144/60 11/14 1400 98.1 79 20 124/62 93 Intake & Output 11/15 1600 11/15 0811/15 0000 Intake Total 480 710 Output Total 220 60 Balance 260 650 Intake, IV 230 Intake, Oral 480 480 Number 3 Bowel Movements Output, Other 120 60 Output, Urine 100 Patient 70.817 kg Weight Physical Exam General Appearance: Alert, Oriented X3, Cooperative, No Acute Distress Cardiovascular: Regular Rate, Normal S1, Normal S2, No Murmurs Lungs: Clear to Auscultation, Normal Air Movement Abdomen: Normal Bowel Sounds, Soft, tenderness on RUQ/RLQ, cholecystostomy drain RUQ Extremities: No Clubbing, No Cyanosis, No Edema, Normal Pulses Current Medications: Current Medications Sig/Richa Start time Last Medication Dose Route Stop Time Status Admin Acetaminophen 650 MG Q6P PRN 11/09 0015 AC PO Alprazolam 1 MG TID PRN 11/09 0030 AC 11/13 PO 11/16 0029 2154 Aspirin Buffered 81 MG DAILY 11/11 1430 AC 11/15 PO 0800 Atorvastatin Calcium 80 MG 1700 11/09 1700 AC 11/14 PO 1623 Carvedilol 6.25 MG BID 11/09 0900 AC 11/15 PO 0759 Ciprofloxacin 500 MG BID 11/15 0900 AC 11/15 PO 11/18 1557 0759 Ciprofloxacin 500 MG BID 11/14 2100 DC PO 11/18 2058 Ciprofloxacin 400 MG Q12 11/14 2100 DC 11/14 Dextrose/Water 200 ML IV 11/14 Ciprofloxacin 400 MG Q12 11/13 0946 DC 11/14 Dextrose/Water 200 ML IV 08 Clopidogrel Bisulfate 75 MG DAILY 11/11 1415 AC 11/15 PO 0800 Heparin Sodium 5,000 UNIT Q8 11/11 1600 AC 11/14 (Porcine) SC 195 Lisinopril 20 MG DAILY 11/13 1420 AC 11/15 PO 0800 Omeprazole 40 MG DAILY AC 11/09 0700 AC 11/15 PO 0641 Ondansetron HCl 4 MG Q8P PRN 11/09 0015 AC IV Oxycodone/ 1 TAB Q4P PRN 11/12 1630 AC 11/15 Acetaminophen PO 0758 Patient Medication 1 ED ONE ONE 11/14 1415 DC 11/14 Teaching ED 11/14 1416 1408 Quetiapine Fumarate 25 MG DAILY 11/09 09 AC 11/15 PO 0800 Venlafaxine HCl 150 MG DAILY 11/09 0900 AC 11/15 PO 0800 Last 24 Hrs of Lab/Richie Results Last 24 Hrs of Labs/Mics: Laboratory Tests 11/15/17 0700: Anion Gap 10, Estimated GFR > 60, BUN/Creatinine Ratio 4.4 L, Total Bilirubin 0.4, Direct Bilirubin 0.2, AST 22, ALT 42, Alkaline Phosphatase 244 H, Total Protein 6.1 L, Albumin 3.2 L, PT 15.0 H, INR 1.37 H, APTT 33, CBC w Diff Pending, WBC Pending, RBC Pending, Hgb Pending, Hct Pending, MCV Pending, MCH Pending, MCHC Pending, RDW Pending, Plt Count Pending, MPV Pending Microbiology 11/15 0232 STOOL: Clostridium difficile Toxin A & B - COLB Assessment/Plan Assessment: 77-year-old female with PMH of achalasia, CAD s/p stenting in February 2017, CABG in 2002, HFrEF (LVEF 30-35%) s/p AICD, HTN, and left bundle branch block presented with complaints of acute onset abdominal pain, nausea and non-bloody vomiting for 2 days. The patient had an elevated white blood cell count of 13.5 with a left shift, lactic acid of 2.0. CT abdomen and pelvis demonstrated gallbladder wall thickening and mild intra-and extrahepatic biliary ductal dilatation, suggestive of acute cholecystitis considering the clinical picture. Patient had cholecystostomy tube placed 11/10 and being treated with ciprofloxacin. Sepsis secondary acute cholecystitis s/p cholecystostomy tube Clinically improved, hemodynamically stable Afebrile without leukocytosis Enterobacter from cholecystotomy culture-sensitive to ciprofloxacin Day 3/ ciprofloxacin 500mg po bid PO PPI Transaminitis now normal, alk phos remains elevated Follow up gastroenterology recommendations Oxycodone prn for analgesia History of CAD S/P CABG, HFrEF LVEF 30-35% s/p AICD, HTN Elevated troponins: Type II NSTEMI in the setting of acute cholecystitis Continue cardiac regimen Aspirin, plavix, carvedilol, atorvastatin, and lisinopril Medtronic defibrillator interrogated and functioning well. Follow up cardiology recommendations Heart healthy diet DVT ppx-heparin sc and ALPs Full code Problem List: 1. Cholecystitis 2. Cholecystostomy care 3. Elevated troponin 4. Elevated troponin Pain Ratin Pain Location: RUQ Pain Goal: Pain 4 or less Pain Plan: oxycodone prn Tomorrow's Labs & Rationales: cbc, bep, mg
[2017-11-15 08:55] LABS: ABSOLUTE BASOPHIL COUNT 0 /CUMM (0.0-0.2); ABSOLUTE EOSINOPHIL COUNT 0.2 /CUMM (0.0-0.7); ABSOLUTE GRANULOCYTE CT 5.4 /CUMM (1.4-6.5); ABSOLUTE LYMPH COUNT 2.8 /CUMM (1.2-3.4); ABSOLUTE MONOCYTE COUNT 0.8 /CUMM (0.10-0.60); BASOPHIL % 0.4 % (0.0-2.0); EOSINOPHIL % 1.8 % (0-5); GRANULOCYTE % 58.9 % (42.2-75.2); HEMATOCRIT 28.4 % (37-47); MEAN CORPUSCULAR HGB 31.4 PG (27.0-31.0); MEAN CORPUSCULAR HGB CONC 33.7 G/DL (33.0-37.0); MEAN CORPUSCULAR VOLUME 93.3 FL (81.0-99.0); MEAN PLATELET VOLUME 7.4 FL (7.4-10.4); PLATELET COUNT 281 /CUMM (130-400); RED BLOOD CELL CT 3.05 /CUMM (4.20-5.40); WHITE BLOOD CELL COUNT 9.2 /CUMM (4.8-10.8)
[2017-11-15] MEDS ORDERED: CIPRO500 M1 PO (11:06)
[2017-11-15] MEDS ORDERED: PERCOCET 5-3251 EACH PO (18:01)
--- NOTE | 2017-11-17 14:05 | Discharge Summary ---
Visit Information Visit Dates Admission Date: 11/08/17 Discharge Date: 11/15/17 Hospital Course Allergies: Coded Allergies: No Known Allergies (07/03/15) Discharge Instructions Medications at Discharge Discharge Medications: Continue taking these medications: Aspirin (Ecotrin*) 81 MG TABLET.DR 1 Tablet ORAL DAILY Comments: Last Taken: 11/15/17 Time: 9:00 AM Lisinopril (Lisinopril) 20 MG TABLET 1 Tablet ORAL DAILY Qty = 30 Comments: Last Taken: 11/15/17 Time: 9:00 AM Zolpidem Tartrate (Zolpidem Tartrate) 10 MG TABLET 1 Tablet ORAL Every night Qty = 30 Comments: NOT GIVEN Dexlansoprazole (Dexilant) 30 MG CAP.BP 1 Capsule ORAL DAILY Qty = 30 Comments: NOT GIVEN Atorvastatin Calcium (Atorvastatin Calcium) 80 MG TABLET 1 Tablet ORAL DAILY Qty = 90 Comments: Last Taken: 11/14/17 Time: 4:00 PM Quetiapine Fumarate (Quetiapine Fumarate) 25 MG TABLET 1 Tablet ORAL DAILY Qty = 30 Comments: Last Taken: 11/15/17 Time: 8:00 AM Alprazolam (Alprazolam) 1 MG TABLET 1 Tablet ORAL THREE TIMES DAILY as needed for ANXIETY Qty = 90 Comments: Last Taken: 11/13/17 Time: 10:00 PM Clopidogrel Bisulfate (Clopidogrel) 75 MG TABLET 1 Tablet ORAL DAILY Qty = 90 Comments: Last Taken: 11/15/17 Time: 9:00 AM Venlafaxine HCl (Venlafaxine HCl ER) 150 MG CAP.ER.24H 1 Capsule ORAL DAILY Qty = 90 Comments: Last Taken: 11/15/17 Time: 9:00 AM Carvedilol (Carvedilol) 6.25 MG TABLET 1 Tablet ORAL TWICE DAILY Qty = 180 Comments: Last Taken: 11/15/17 Time: 8:00 AM Start taking the following new medications: Ciprofloxacin HCl (Cipro) 500 MG TABLET 1 Tablet ORAL TWICE DAILY Qty = 24 No Refills Instructions: . Comments: Last Taken: 11/15/17 Time: 8:00 AM Oxycodone HCl/Acetaminophen (Percocet 5-325 MG Tablet) 5 MG-325 MG TABLET 1 Tablet ORAL TWICE DAILY Qty = 10 No Refills
== END 2017-11-15 12:20 | disposition home health service (06) | DRG 872 ==
LOC: ERH 05:05 → CRI 19:22 → ERHI 19:22 → ENRESERV 22:33 → 1NO 23:02 → ERHI 11-09 00:09 → CRI 11-09 00:30 → 1NO 11-09 00:39 → ERHI 11-09 00:50 → 1NO 11-09 01:00 → CRI 11-09 06:15 → ENTRNSPT 11-12 22:22 → CMPTRNSPT 11-12 22:43 → 1NO 11-12 22:46 → ENPENDDIS 11-15 11:06 → ENTRNSPT 11-15 11:58 → 1NO 11-15 12:20 → EDTRNSPT 11-15 12:23 → EDTRNSPTSTS 11-15 12:23 → CMPTRNSPT 11-15 12:28
PROVIDERS: Emergency Medicine; General Practice; Internal Medicine; Student in an Organized Health Care Education/Training Program
PROC: 0F9430Z Drainage of Gallbladder with Drainage Device, Percutaneous Approach (ICD-10-PCS; principal; 2017-11-10)
DX: A41.50 Gram-negative sepsis, unspecified (principal); E87.1 Hypo-osmolality and hyponatremia; K31.1 Adult hypertrophic pyloric stenosis; K83.0 Cholangitis; I24.8 Other forms of acute ischemic heart disease; I50.22 Chronic systolic (congestive) heart failure; K80.43 Calculus of bile duct with acute cholecystitis with obstruction; D64.9 Anemia, unspecified; I95.9 Hypotension, unspecified; I11.0 Hypertensive heart disease with heart failure; K22.0 Achalasia of cardia; K57.30 Diverticulosis of large intestine without perforation or abscess without bleeding; I25.10 Atherosclerotic heart disease of native coronary artery without angina pectoris; K21.9 Gastro-esophageal reflux disease without esophagitis; Z95.1 Presence of aortocoronary bypass graft; Z95.0 Presence of cardiac pacemaker
CPT/HCPCS: 1NP; 1NSP; 87075; CCU; 36415; 36592; 74177; 78226; 81001; 82436; 87040; 87086; 93005; 93010; 96361; 96365; 96375; 97116-GO; 97161-GP; 97530-GO; A9537; J0131; J0696; J0744; J1644; J2001; J2765; J7040; J7060

== ENCOUNTER 2017-12-08 14:43 | Emergency (ER) | payer OTHER ==
[~2017-12-08] VITALS: Ht 152.4 cm; Wt 56.7 kg
[~2017-12-08 14:43] MED LIST changes: +ALPRAZOLAM1 M2 PO; +ASPIRIN EC81 M1 PO; +ATORVASTATIN CA80 M1 PO; +CARVEDILOL6.25 M1 PO; +CIPRO500 M1 PO; +CLOPIDOGREL75 M1 PO; +DEXILANT30 M1 PO; +LISINOPRIL20 M1 PO; +PERCOCET 5-3251 EACH PO; +QUETIAPINE FUMA25 M1 PO; +VENLAFAXINE HC150 MG PO; +ZOLPIDEM TARTRA10 M1 PO
[2017-12-08 14:46] VITALS: BP 112/70
--- NOTE | 2017-12-08 15:03 | ED GENERAL ADULT ---
History of Present Illness General Chief Complaint: General Adult Stated Complaint: PULLED DRAIN OUT OF SUG SITE Source: patient Exam Limitations: no limitations Vital Signs & Intake/Output Vital Signs & Intake/Output Vital Signs Date Time Temp Pulse Resp B/P B/P Pulse O2 O2 Flow FiO2 Mean Ox Delivery Rate 12/08 1446 98.3 96 18 112/70 98 Room Air Allergies Coded Allergies: No Known Allergies (07/03/15) Reconcile Medications Alprazolam 1 MG TABLET 1 TAB PO TID PRN ANXIETY (Reported) Aspirin (Ecotrin*) 81 MG TABLET.DR 1 TAB PO DAILY HEART/BLOOD (Reported) Atorvastatin Calcium 80 MG TABLET 1 TAB PO DAILY CHOLESTEROL (Reported) Carvedilol 6.25 MG TABLET 1 TAB PO BID HEART/BP (Reported) Ciprofloxacin HCl (Cipro) 500 MG TABLET 1 TAB PO BID INFECTION/GALLBLADDER . Clopidogrel Bisulfate (Clopidogrel) 75 MG TABLET 1 TAB PO DAILY BLOOD THINNER (Reported) Dexlansoprazole (Dexilant) 30 MG CAP.DR.BP 1 CAP PO DAILY GI (Reported) Lisinopril 20 MG TABLET 1 TAB PO DAILY BP (Reported) Oxycodone HCl/Acetaminophen (Percocet 5-325 MG Tablet) 5 MG-325 MG TABLET 1 TAB PO BID PAIN Oxycodone HCl/Acetaminophen (Percocet 5-325 MG Tablet) 5 MG-325 MG TABLET 1 TAB PO 4XDP PRN PAIN TEN...[id number] Quetiapine Fumarate 25 MG TABLET 1 TAB PO DAILY MENTAL HEALTH (Reported) Venlafaxine HCl (Venlafaxine HCl ER) 150 MG CAP.ER.24H 1 CAP PO DAILY MENTAL HEALTH (Reported) Zolpidem Tartrate 10 MG TABLET 1 TAB PO QPM SLEEP (Reported) Triage Note: 77 YO FEMALE TO TRIAGE FOR EVAL OF ACCIDENTLY CUTTING DRAIN FROM GALLBLADDER WITH SCISSORS THIS AM. STATES WAS TRYING TO CUT THE GUAZE AROUND IT AND ACCIDENTLY CUT THE DRAIN. Triage Nurses Notes Reviewed? yes HPI: Patient presents for evaluation of draining from her cholecystostomy tube. Patient states that she mistakenly cut the end of the tube off when she was trying to remove the dressing. The drainage bag had been removed from the catheter and the catheter was no longer draining to gravity but "turned off" pending complete removal and cholecytectomy. Past History Travel History Traveled to [place] past 21 day No Medical History Any Pertinent Medical History? see below for history EENT: ACHALSIA Cardiovascular: CAD (s/p cabg, stents), CHF, hypertension, ppm Gastrointestinal: pyloric stenosis History of MRSA: No History of VRE: No History of CDIFF: No Surgical History Surgical History: CABG, N (ppm) Psychosocial History Who do you live with Patient/Self Services at Home None What is your primary language Macedonian Tobacco Use: Never used Family History Family History, If Any: FATHER Heart attack Hx Contributory? No Review of Systems Review of Systems Constitutional: Reports: no symptoms. EENTM: Reports: no symptoms. Respiratory: Reports: no symptoms. Cardiovascular: Reports: no symptoms. GI: Reports: see HPI. Genitourinary: Reports: no symptoms. Musculoskeletal: Reports: no symptoms. Skin: Reports: no symptoms. Neurological/Psychological: Reports: no symptoms. Hematologic/Endocrine: Reports: no symptoms. Immunologic/Allergic: Reports: no symptoms. All Other Systems: Reviewed and Negative Physical Exam Physical Exam General Appearance: see below Comments: Gen.: Well-nourished, well-developed, no acute respiratory distress. Head: Normocephalic, atraumatic. Eyes: Normal inspection bilaterally Ears: Normal inspection bilaterally Nose: Normal inspection Throat/mouth : Moist mucosa Neck: Supple, full range of motion, no goiter Lungs: Quiet respirations Back: Normal range of motion Extremities: Normal range of motion grossly, no cyanosis clubbing or edema of the upper extremities Neurologic: Cranial nerves grossly intact, speech is clear Skin: warm and dry Psychiatric: Calm, cooperative, no apparent delusions or hallucinations Abdomen: Drainage tube emanating from the right upper quadrant with yellow bile dripping from the end of a cut tube. Core Measures ACS in differential dx? No CVA/TIA Diagnosis: No Sepsis Present: No Sepsis Focused Exam Completed? No Progress Differential Diagnoses I considered the following diagnoses in my evaluation of the patient: Catheter malfunction Plan of Care: see d/c instructions Initial ED EKG: none Comments: 12/08/2017 3:02:44 PM I'm attempting to contact Dr. Rollins on [facility] who has been managing this patient's gallbladder issue. 12/08/2017 3:35:22 PM Patient's emergency department presentation discussed with Dr. Rollins, who states that so long as we can clear the tube patient can follow up with her and have it removed once she is cleared medically. The tube has been clamped with 2 IV tube clamps and I have also secured the tube with a 3-0 suture and Steri-Stripped with benzoin to the skin. Departure Departure Disposition: HOME OR SELF CARE Condition: Stable Clinical Impression Primary Impression: Cholecystostomy tube dysfunction Qualifiers: Encounter type: initial encounter Qualified Code: T85.518A - Breakdown (mechanical) of other gastrointestinal prosthetic devices, implants and grafts, initial encounter Referrals: Sal Holden MD (PCP/Family) Additional Instructions: Follow-up with Dr. Reid tomorrow. Keep the catheter in place and do not wet the area or remove the dressing until follow-up. Return if any concerns or sudden worsening. Departure Forms: Customer Survey General Discharge Information Critical Care Note Critical Care Note Critical Care Time: non-applicable
== END 2017-12-08 15:51 ==
LOC: ERH 14:43
DX: T85.518A Breakdown (mechanical) of other gastrointestinal prosthetic devices, implants and grafts, initial encounter (principal); I10 Essential (primary) hypertension; I50.9 Heart failure, unspecified; I25.10 Atherosclerotic heart disease of native coronary artery without angina pectoris; Z79.82 Long term (current) use of aspirin